=== PATIENT | male | born 1940 | race Caucasian/White ===

== ENCOUNTER 2016-09-30 18:41 | Inpatient (IN) | payer MEDICARE ==
[2016-09-30] MEDS ORDERED: ACETAMINOPHEN TAB 500 MG TAB PO STA (19:06)
[2016-09-30] MEDS ORDERED: ONDANSETRON 4 MG/2 ML VIAL IVP STA (19:08)
[2016-09-30] MEDS: SODIUM CHLORIDE 0.9% 500 ML IV SCH (19:32)
--- NOTE | 2016-09-30 19:34 | ED ---
Weakness HPI - General Chief complaint: Weakness Stated complaint: Sickness Time Seen by Provider: 09/30/16 18:43 Source: patient, family Mode of arrival: EMS Limitations: altered mental status, physical limitation - History of Present Illness Initial comments: This is a 76-year-old male with no past medical history however does not routinely see a physician presents emergency department for generalized fatigue. He states that it started approximately 3 days ago with some nausea and vomiting and some epigastric abdominal discomfort. It is gradually gotten worse to the point where he cannot get up and stand it anymore. He has been having some sweats at home. He denies any chest pain however does state that the abdominal discomfort did radiate up into his chest at times. He admits to little bit of some cough and shortness of breath. No dysuria or hematuria. No abdominal pain currently. No other complaints. - Related Data Home Medications Medication Instructions Recorded Confirmed Aspirin [Adult Low Dose Aspirin EC] 81 mg PO DAILY PRN 09/30/16 09/30/16 Allergies Allergy/AdvReac Type Severity Reaction Status Date / Time No Known Allergies Allergy Verified 09/30/16 20:08 Review of Systems ROS Statement: Those systems with pertinent positive or pertinent negative responses have been documented in the HPI. ROS Other: All systems not noted in ROS Statement are negative. General Exam - General Exam Comments Initial Comments: Constitutional: Awake alert Appears comfortable Head: Normocephalic atraumatic Eyes: no conjunctival injection No scleral icterus EOMI Neck: No JVD Supple Heart: Regular rate rhythm normal S1-S2 no murmurs Lungs: Clear to auscultation bilaterally No wheezing there is some crackling to the right lung base Abdomen: Soft nondistended nontender Extremities: Non edematous DP pulses intact Radial pulses intact Neuro: A&Ox3 No focal neurologic deficits Psych: Appropriate mood and affect Limitations: altered mental status, physical limitation Course Vital Signs 09/30/16 09/30/16 18:56 19:24 Temperature 100.9 F H 99.2 F Pulse Rate 106 H 98 Respiratory 17 18 Rate Blood Pressure 145/68 155/72 O2 Sat by Pulse 93 L 96 Oximetry EKG Findings - EKG Comments: EKG Findings:: EKG showing sinus tachycardia with a rate of 104. No abnormal ST segment changes or T-wave inversions. QTC is 418. Other intervals are normal. No ectopy. Medical Decision Making - Medical Decision Making Is a 76-year-old male presents emergency department for generalized fatigue. He appears to have pneumonia and sepsis. I started him on Rocephin and azithromycin. I'm going to admitted to the hospital. Dr. Leung accepts admission. - Lab Data Result diagrams: 09/30/16 19:34 09/30/16 19:34 Lab Results 09/30/16 09/30/16 09/30/16 Range/Units 19:34 19:34 19:34 WBC 21.4 H (3.8-10.6) k/uL RBC 4.64 (4.30-5.90) m/uL Hgb 14.9 (13.0-17.5) gm/dL Hct 42.1 (39.0-53.0) % MCV 90.7 (80.0-100.0) fL MCH 32.1 (25.0-35.0) pg MCHC 35.4 (31.0-37.0) g/dL RDW 12.7 (11.5-15.5) % Plt Count 173 (150-450) k/uL Neutrophils % 89 % Lymphocytes % 5 % Monocytes % 5 % Eosinophils % 1 % Basophils % 0 % Neutrophils # 19.1 H (1.3-7.7) k/uL Lymphocytes # 1.0 (1.0-4.8) k/uL Monocytes # 1.0 (0-1.0) k/uL Eosinophils # 0.1 (0-0.7) k/uL Basophils # 0.0 (0-0.2) k/uL PT (9.0-12.0) sec INR (<1.1) APTT (22.0-30.0) sec Sodium 131 L (137-145) mmol/L Potassium 3.3 L (3.5-5.1) mmol/L Chloride 98 (98-107) mmol/L Carbon Dioxide 23 (22-30) mmol/L Anion Gap 10 mmol/L BUN 34 H (9-20) mg/dL Creatinine 1.20 (0.66-1.25) mg/dL Est GFR (MDRD) Af Amer >60 (>60 ml/min/1.73 sqM) Est GFR (MDRD) Non-Af 59 (>60 ml/min/1.73 sqM) Glucose 150 H (74-99) mg/dL Plasma Lactic Acid Nestor 1.1 (0.7-2.0) mmol/L Calcium 8.9 (8.4-10.2) mg/dL Total Bilirubin 1.8 H (0.2-1.3) mg/dL AST 32 (17-59) U/L ALT 34 (21-72) U/L Alkaline Phosphatase 75 (38-126) U/L Total Protein 6.2 L (6.3-8.2) g/dL Albumin 3.4 L (3.5-5.0) g/dL 09/30/16 Range/Units 19:34 WBC (3.8-10.6) k/uL RBC (4.30-5.90) m/uL Hgb (13.0-17.5) gm/dL Hct (39.0-53.0) % MCV (80.0-100.0) fL MCH (25.0-35.0) pg MCHC (31.0-37.0) g/dL RDW (11.5-15.5) % Plt Count (150-450) k/uL Neutrophils % % Lymphocytes % % Monocytes % % Eosinophils % % Basophils % % Neutrophils # (1.3-7.7) k/uL Lymphocytes # (1.0-4.8) k/uL Monocytes # (0-1.0) k/uL Eosinophils # (0-0.7) k/uL Basophils # (0-0.2) k/uL PT 11.1 (9.0-12.0) sec INR 1.1 (<1.1) APTT 26.7 (22.0-30.0) sec Sodium (137-145) mmol/L Potassium (3.5-5.1) mmol/L Chloride (98-107) mmol/L Carbon Dioxide (22-30) mmol/L Anion Gap mmol/L BUN (9-20) mg/dL Creatinine (0.66-1.25) mg/dL Est GFR (MDRD) Af Amer (>60 ml/min/1.73 sqM) Est GFR (MDRD) Non-Af (>60 ml/min/1.73 sqM) Glucose (74-99) mg/dL Plasma Lactic Acid Nestor (0.7-2.0) mmol/L Calcium (8.4-10.2) mg/dL Total Bilirubin (0.2-1.3) mg/dL AST (17-59) U/L ALT (21-72) U/L Alkaline Phosphatase (38-126) U/L Total Protein (6.3-8.2) g/dL Albumin (3.5-5.0) g/dL Disposition Clinical Impression: CAP (community acquired pneumonia), Sepsis Disposition: ADMITTED IP TO THIS HOSP Condition: Stable Referrals: None,Stated [Primary Care Provider] - 1-2 days
[2016-09-30] MEDS: SODIUM CHLORIDE 0.9% 1,000 ML IV SCH (19:35)
[2016-09-30 19:48] LABS: Basophils % (A) 0 %; CH 32.2; CHCM 35.7; Eosinophils # (A) 0.1 k/uL (0-0.7); Eosinophils % (A) 1 %; HCT 42.1 % (39.0-53.0); HDW 2.42; HGB 14.9 gm/dL (13.0-17.5); Luc # (Auto) 0.23; Luc % (Auto) 1; Lymphocytes % (A) 5 %; MCH 32.1 pg (25.0-35.0); MCHC 35.4 g/dL (31.0-37.0); MCV 90.7 fL (80.0-100.0); Mean Platelet Volume 7.2; Monocytes % (A) 5 %; Neutrophils # (A) 19.1 k/uL (1.3-7.7); Neutrophils % (A) 89 %; RBC 4.64 m/uL (4.30-5.90); RDW 12.7 % (11.5-15.5); WBC 21.4 k/uL (3.8-10.6); WBC (Perox) 21.61
--- NOTE | 2016-09-30 19:57 | XR ---
EXAMINATION TYPE: XR chest 2V DATE OF EXAM: 09/30/2016 COMPARISON: NONE HISTORY: Weakness TECHNIQUE: Frontal and lateral views of the chest are obtained. FINDINGS: There is no heart failure nor confluent pneumonic infiltrate. Costophrenic angles are bernardino r. There are no hilar masses. Thoracic aorta is atheromatous. There are chest leads. There is mild li near density in the right middle lobe. IMPRESSION: Mild subsegmental atelectasis in the right middle lobe. No heart failure.
[2016-09-30 19:58] LABS: INR 1.1 (<1.1); Partial Thromboplastin Time 26.7 sec (22.0-30.0); Prothrombin Time 11.1 sec (9.0-12.0)
[2016-09-30 20:01] LABS: ALT 34 U/L (21-72); AST 32 U/L (17-59); Alkaline Phosphatase 75 U/L (38-126); Anion Gap 10 mmol/L; Blood Urea Nitrogen 34 mg/dL (9-20); Calcium 8.9 mg/dL (8.4-10.2); Carbon Dioxide 23 mmol/L (22-30); Chloride 98 mmol/L (98-107); Glucose 150 mg/dL (74-99); Non-African American GFR(MDRD) 59 (>60 ml/min/1.73 sqM); Potassium 3.3 mmol/L (3.5-5.1); Sodium 131 mmol/L (137-145); Total Bilirubin 1.8 mg/dL (0.2-1.3); Total Protein 6.2 g/dL (6.3-8.2)
[2016-09-30] MEDS ORDERED: AZITHROMYCIN 500 MG in SODIUM CHLORIDE 0.9% 250 ML IVPB STA (20:04)
[2016-09-30 20:20] LABS: Creatine Kinase 47 U/L (55-170)
[2016-09-30 20:33] LABS: Creatine Kinase MB 0.4 ng/mL (0.0-2.4); Troponin I <0.012 ng/mL (0.000-0.034)
[2016-09-30] MEDS ORDERED: ACETAMINOPHEN TAB 325 MG TAB PO PRN (20:33)
[2016-09-30] MEDS ORDERED: NALOXONE 0.4 MG/ML 1 ML VIAL IV PRN (20:33)
[2016-09-30 22:25] VITALS: BMI 28.5
[2016-09-30] MEDS ORDERED: TEMAZEPAM 15 MG CAP PO PRN (23:09)
[2016-09-30] MEDS ORDERED: ALPRAZolam 0.25 MG TAB PO PRN (23:09)
[2016-10-01 00:20] LABS: ALT 34 U/L (21-72); AST 28 U/L (17-59); Alkaline Phosphatase 58 U/L (38-126); Anion Gap 9 mmol/L; Blood Urea Nitrogen 29 mg/dL (9-20); Calcium 8.1 mg/dL (8.4-10.2); Carbon Dioxide 23 mmol/L (22-30); Chloride 100 mmol/L (98-107); Glucose 125 mg/dL (74-99); Non-African American GFR(MDRD) >60 (>60 ml/min/1.73 sqM); Potassium 3.3 mmol/L (3.5-5.1); Sodium 132 mmol/L (137-145); Total Bilirubin 1.7 mg/dL (0.2-1.3)
[2016-10-01 02:07] LABS: Appearance,Urine Clear (Clear); Bilirubin,Urine Negative (Negative); Glucose,Urine (UA) Negative (Negative); Ketones,Urine Negative (Negative); Leukocyte Esterase,Urine Negative (Negative); Nitrite,Urine Negative (Negative); Protein,Urine Trace (Negative); Specific Gravity,Urine 1.012 (1.001-1.035); UA Billing (MACRO vs. MICRO) CHEM; Urobilinogen,Urine <2.0 mg/dL (<2.0)
[2016-10-01] MEDS: LEVALBUTEROL NEB (CONC) 1.25 MG/0.5 ML AMP INHALATION SCH ×4 (08:22→19:10)
[2016-10-01] MEDS: IPRATROPIUM 0.5 MG/2.5 ML NEBU INHALATION SCH ×4 (08:22→19:09)
[2016-10-01] MEDS: SYMBICORT 160-4.5 MCG INHALER INHALATION SCH ×2 (08:22→19:10)
[2016-10-01 08:54] LABS: Basophils % (A) 0 %; CH 31.7; CHCM 33.6; Eosinophils % (A) 0 %; HCT 43.4 % (39.0-53.0); HDW 2.33; HGB 14.2 gm/dL (13.0-17.5); Luc # (Auto) 0.25; Luc % (Auto) 2; Lymphocytes # (A) 0.5 k/uL (1.0-4.8); Lymphocytes % (A) 3 %; MCHC 32.7 g/dL (31.0-37.0); MCV 94.7 fL (80.0-100.0); Monocytes # (A) 0.8 k/uL (0-1.0); Monocytes % (A) 5 %; Neutrophils # (A) 14.4 k/uL (1.3-7.7); Neutrophils % (A) 90 %; RBC 4.58 m/uL (4.30-5.90); WBC (Perox) 15.66
[2016-10-01] MEDS: PANTOPRAZOLE 40 MG TABLET PO SCH (08:59)
[2016-10-01] MEDS: HEPARIN SODIUM,PORCINE 5,000 UNIT/ML 1 ML VIAL SQ SCH ×2 (09:00→22:14)
[2016-10-01 09:12] LABS: Anion Gap 7 mmol/L; Blood Urea Nitrogen 22 mg/dL (9-20); Calcium 8.2 mg/dL (8.4-10.2); Carbon Dioxide 27 mmol/L (22-30); Chloride 100 mmol/L (98-107); Glucose 133 mg/dL (74-99); Non-African American GFR(MDRD) >60 (>60 ml/min/1.73 sqM); Potassium 3.5 mmol/L (3.5-5.1); Sodium 134 mmol/L (137-145)
--- NOTE | 2016-10-01 09:54 | HP ---
DATE OF ADMISSION: 09/30/2016 CHIEF COMPLAINT: Weakness and cough. HISTORY OF PRESENT ILLNESS: This is a 76-year-old gentleman with a past medical history of arthritis. Otherwise, no other major medical issues, not being followed by any primary physician in the outpatient setting. Apparently was sick Wednesday. The patient initially vomiting and patient also was complaining of weak after that. The patient was having a cough. Patient unable to even walk but the patient refused to come to the Hospital and finally the patient came to the hospital and was noted to have right lower lobe pneumonia. The patient admitted to the hospital for further evaluation and treatment. There is no history of any rigors, no history of headache, loss of consciousness, seizures. The patient has occasional cough on and off with some sputum. PAST MEDICAL HISTORY: History of degenerative joint disease, history of nicotine dependence. Medications are: Prior to admission: Aspirin 81 mg daily p.r.n. ALLERGIES: None. FAMILY HISTORY: History of pneumonia in the family. SOCIAL HISTORY: Previous history of smoking. No history of alcohol. REVIEW OF SYSTEMS: ENT: Diminishing hearing. Diminished vision. CARDIOVASCULAR SYSTEM: No angina or palpitations. RESPIRATORY: As mentioned earlier. GI: No nausea. : No dysuria. Nervous system: No numbness or weakness. ALLERGY/IMMUNOLOGY: No asthma or hayfever. MUSCULOSKELETAL: As mentioned earlier. HEMATOLOGY/ONCOLOGY: No history of anemia. ENDOCRINE: No history of diabetes mellitus or hypothyroidism. CONSTITUTIONAL: As mentioned earlier . DERMATOLOGY: Negative. RHEUMATOLOGY: Negative. PSYCHIATRY: As mentioned earlier. PHYSICAL EXAMINATION: Patient is alert and oriented x3. Pulse is 106, blood pressure 140/60. Respiratory rate 17. Temperature 100.9, pulse ox 93% on room air. HEENT: Conjunctivae normal. Oral mucosa moist. NECK: No jugular venous distention. No carotid bruit. No lymph node enlargement. CARDIOVASCULAR: S1, S2. No S3, no S4. RESPIRATORY: Breath sounds diminished at the bases. Bilateral scattered rhonchi. Expiratory wheezing and crackles heard. ABDOMEN: Soft, nontender. No mass palpable. Legs: No edema. No swelling. CENTRAL NERVOUS SYSTEM: Higher functions as mentioned earlier. Moves all four limbs. No focal deficits. LYMPHATICS: No lymph nodes palpable in the neck, axillae or groin. SKIN: No ulcer, rash or bleeding. LABS: WBC 21.2, hemoglobin 14.9. Sodium 130, potassium 3.3. Glucose 150. Total bilirubin is 1.8. ASSESSMENT: 1. Acute right lower lobe pneumonia, possibly gram-negative with sepsis, present on admission. 2. Chronic obstructive pulmonary disease, acute exacerbation. 3. Increased WBC. 4. Hyponatremia. 5. Hypokalemia. 6. Increased total bilirubin possibly secondary to sepsis. 7. Hypoalbuminemia with mild protein calorie malnutrition. 8. History of nicotine dependence. 9. History of degenerative joint disease. RECOMMENDATIONS AND DISCUSSION: This 76-year-old gentleman who presented with the multiple complex medical issues, we will monitor the patient closely. Continue the current medications. Continue symptomatic treatment. We will initiate broad-spectrum IV antibiotics. Also recommend bronchodilators and cautious IV hydration and consultation with Dr. Bojorquez. Repeat labs. Cultures. Prognosis guarded because of multiple complex medical issues. Further recommendations to follow. Also checked influenza swab also. See orders for further details. I would also recommend the patient follow up with primary physician closely in the outpatient setting. Discussed at length with the patient and at the bedside who understands and agrees. Further recommendations to follow. See orders for details. We will change the antibiotics according to the culture reports.
[2016-10-01] MEDS: SODIUM CHLORIDE 0.9% 1,000 ML IV SCH (10:49)
--- NOTE | 2016-10-01 12:23 | CT ---
"EXAMINATION TYPE: CT brain wo con DATE OF EXAM: 10/01/2016 COMPARISON: NONE HISTORY: Pneumonia, weakness, fever, rule out cerebrovascular accident CT DLP: 1141 mGycm Automated exposure control for dose reduction was used. FINDINGS: There is no acute intracranial hemorrhage, mass effect, or midline shift identified. The right middl e cerebral artery appears dense as compared to the left. There is low attenuation in the vipul on the left. The ventricles and sulci are within normal limits in size. Periventricular white matter shows p atchy low attenuation. Focal encephalomalacia present in the thalamus on the left compatible with lac unar infarct. There is cortical atrophy which is likely age-related. The globes are intact and the vi sualized sinuses are remarkable for inflammatory change in the ethmoid air cells, sphenoid sinus, lef t maxillary sinus. IMPRESSION: Dense middle cerebral artery on the right could be indicative of subacute cerebral vascular accident. There are changes of age-related atrophy and chronic small vessel ischemia. A Red message has been communicated to Elizabeth Leung MD via the [employer] | Critical Result syst em on 10/01/2016 12:20 PM, Message ID [id number]."
[2016-10-01] MEDS: MULTIVITAMINS, THERA 1 EACH TAB PO SCH (12:55)
--- NOTE | 2016-10-01 15:03 | CT ---
EXAMINATION TYPE: CT ChestAbdPelvis wo con DATE OF EXAM: 10/01/2016 COMPARISON: Correlation chest radiograph 09/30/2016 HISTORY: 76-year-old male with pneumonia TECHNIQUE: Contiguous axial scanning of the chest, abdomen, and pelvis without IV contrast. Coronal a nd sagittal reconstructions performed. CT DLP: 1428 mGycm Automated exposure control for dose reduction was used. FINDINGS: CHEST: The heart is normal size with a small anterior pericardial effusion measuring 7 mm thick. Artery vess el calcifications are remarkable for coronary artery disease. Ascending aorta is ectatic at 3.9 cm. Mild atelectatic arch calcifications with conventional arch ves david branching anatomy. No thoracic lymphadenopathy by CT size criteria. Evaluation of the lungs shows scattered areas of atelectasis in the mid and lower lungs. There is uday e volume loss and consolidation in the posterior basilar right lower lobe. No pleural effusion. ABDOMEN: Small hiatal hernia. Noncontrast appearance of the liver, adrenal glands, spleen with tiny anterior splenule, and atrophic pancreas show no gross abnormality. 3 mm nonobstructive right lower pole renal calculus and punctate 2 mm nonobstructive left lower pole renal calculus. The gallbladder is hydropic measuring 5.3 cm wide with moderate surrounding inflammatory fat strandin g extending into the ovi hepatis region. In addition, there is diffuse colonic diverticulosis and adjacent wall thickening of the hepatic flex ure, axial image 77. Strandy edema tracking down the anterior right pararenal fascia. No dilated small bowel or free air. No mesenteric or retroperitoneal lymphadenopathy. Pelvis: Bladder is urine distended. Small amount of free fluid collects in the pelvis. No pelvic lymphadenopa thy. Bones: Degenerative changes at the hips and SI joints and also within the lumbar spine. No osseous radiology documented IMPRESSION: 1. ATELECTASIS AND CONSOLIDATION POSTERIOR RIGHT LUNG BASE. IN THE CORRECT CLINICAL SETTING, A SMALL FOCUS OF PNEUMONIA IS NOT EXCLUDED. 2. FINDINGS CONCERNING FOR ACUTE CHOLECYSTITIS WITH MODERATE SURROUNDING INFLAMMATION. 3. THERE IS WALL THICKENING OF THE ADJACENT HEPATIC FLEXURE OF THE COLON THAT COULD BE REACTIVE TO TH E ADJACENT GALLBLADDER INFLAMMATION. AN ACUTE DIVERTICULITIS HERE WOULD BE THE ALTERNATIVE CONSIDERAT ION. 4. INFLAMMATORY FLUID TRACKING DOWN THE RIGHT SIDE OF THE ABDOMEN AND SMALL AMOUNT OF FREE FLUID TYRA ECTING IN THE PELVIS LIKELY REACTIVE. 5. NONOBSTRUCTIVE NEPHROLITHIASIS AND SMALL HIATAL HERNIA. Findings called to Dr. Leung at 3:00 PM.
--- NOTE | 2016-10-01 15:40 | US ---
EXAMINATION TYPE: US carotid duplex BILAT DATE OF EXAM: 10/01/2016 COMPARISON: NONE CLINICAL HISTORY: cva. weakness in legs EXAM MEASUREMENTS: RIGHT: Peak Systolic Velocity (PSV) cm/sec ----- Right CCA: 131.8 ----- Right ICA: 77.0 ----- Right ECA: 71.2 ICA/CCA ratio: 0.6 RIGHT: End Diastole cm/sec ----- Right CCA: 12.3 ----- Right ICA: 15.1 ----- Right ECA: 8.4 LEFT: Peak Systolic Velocity (PSV) cm/sec ----- Left CCA: 95.2 ----- Left ICA: 91.9 ----- Left ECA: 113.4 ICA/CCA ratio: 1.0 LEFT: End Diastole cm/sec ----- Left CCA: 10.6 ----- Left ICA: 15.1 ----- Left ECA: 9.8 VERTEBRALS (direction of flow): Right Vertebral: Antegrade Left Vertebral: Antegrade Mild heterogeneous plaque bilaterally with soft plaque noted on right dist CCA, no significant stenos is seen IMPRESSION: No hemodynamic significant stenosis of the proximal internal carotid arteries bilaterall y by Doppler criteria, and indirect measurement of carotid stenosis
[2016-10-01 16:32] LABS: Cholesterol 119 mg/dL (<200); HDL Cholesterol 50 mg/dL (40-60); Triglycerides 69 mg/dL (<150)
[2016-10-01] MEDS: PIPERACILLIN-TAZOBACTAM 3.375 GM in DEXTROSE/WATER 1 50ML.BAG IVPB SCH (17:08)
--- NOTE | 2016-10-01 17:33 | P.CNPUL ---
History of Present Illness Consult date: 10/01/16 Reason for consult: pneumonia History of present illness: 76-year-old male patient, not having any regular medical follow-up, comes into the hospital because of increased cough and I was consulted to see this patient for suspected right lung pneumonia. . Approximately 3-4 days ago, the patient also had some increased nausea vomiting and some epigastric abdominal discomfort and it progressively got worse to the point where he was unable to get up and move around. He was having also some increased nausea. The patient also was noted to have some weakness on the right side of the body as he noted that while walking and was moving or swelling more to the right. No slurred speech. No headaches. No falls. He also reported cough which was progressively getting worse along with some sputum production on an on-and-off basis. He had also been complaining of generalized fatigue and weakness. He also had some sweating at home. No documented temperature. No regular speed no chills. He denied having any chest pain. No dysuria frequency or urgency. In the emergency department, the patient was also noted to have some altered and depressed mental status. He was diagnosed having a right lung pneumonia with sepsis. He was started with a combination of Rocephin and Zithromax. The patient was admitted to the hospital. His initial white cell count was 21.4. Rest of the electrolytes showed a mild hypokalemia with a potassium of 3.3 and his kidney function showed a BUN of 34 and creatinine of 1.2. The patient had a CAT scan of the chest abdomen and pelvis that showed atelectasis/ consolidation of the posterior right lung base. The patient also had findings concerning of an acute cholecystitis with moderate amount of inflammation along the gallbladder with some fat stranding. The patient also had thickening of the bowel wall adjacent to the hepatic flexure of the colon that could be potentially reactive or inflammatory. Inflammatory fluid was also found to be taken down the right side of the abdomen and small amount of free fluid collecting in the pelvis was seen. Nonobstructive nephrolithiasis and small hiatal hernia was also present. The patient has diffuse colonic diverticulosis and wall thickening of the hepatic flexure was seen. The CAT scan of the brain also showed a dense middle cerebral artery change on the right that could potentially indicate a subacute CVA and addition to that there are changes of age-related atrophy and chronic small vessel ischemia. The carotid Doppler showed no evidence of any hemodynamically significant stenosis. Review of Systems All systems: negative Constitutional: Denies chills, Denies fever Eyes: denies blurred vision, denies pain Ears, nose, mouth and throat: Denies headache, Denies sore throat Cardiovascular: Denies chest pain, Denies shortness of breath Respiratory: Denies cough Gastrointestinal: Denies abdominal pain, Denies diarrhea, Denies nausea, Denies vomiting Musculoskeletal: Denies myalgias Integumentary: Denies pruritus, Denies rash Neurological: Denies numbness, Denies weakness Psychiatric: Denies anxiety, Denies depression Endocrine: Denies fatigue, Denies weight change Past Medical History Past Medical History: No Reported History History of Any Multi-Drug Resistant Organisms: None Reported Past Anesthesia/Blood Transfusion Reactions: No Reported Reaction Past Psychological History: No Psychological Hx Reported Smoking Status: Former smoker - Past Family History Father Family Medical History: Pneumonia Mother Family Medical History: Unable to Obtain Medications and Allergies Home Medications Medication Instructions Recorded Confirmed Type Aspirin [Adult Low Dose Aspirin EC] 81 mg PO DAILY PRN 09/30/16 09/30/16 History Allergies Allergy/AdvReac Type Severity Reaction Status Date / Time No Known Allergies Allergy Verified 09/30/16 20:08 Physical Exam Vitals: Vital Signs Temp Pulse Pulse Resp BP BP Pulse Ox 10/01/16 12:47 92 10/01/16 12:38 88 10/01/16 09:12 92 10/01/16 08:59 92 10/01/16 07:00 99.8 F H 90 18 145/70 91 L 09/30/16 23:00 97.1 F L 81 16 130/71 95 09/30/16 20:37 98.9 F 91 16 138/63 96 09/30/16 19:24 99.2 F 98 18 155/72 96 09/30/16 18:56 100.9 F H 106 H 17 145/68 93 L Intake and Output 10/01/16 10/01/16 10/01/16 06:59 14:59 22:59 Intake Total 240 Output Total 700 Balance -460 Intake: Oral 240 Output: Urine 700 Other: Voiding Method Urinal Urinal Diaper # Voids 3 Weight 82.5 kg Results - Laboratory Findings CBC and BMP: 10/01/16 08:17 10/01/16 08:17 PT/INR, D-dimer PT 11.1 sec (9.0-12.0) 09/30/16 19:34 INR 1.1 (<1.1) 09/30/16 19:34 Abnormal lab findings: Abnormal Labs 09/30/16 09/30/16 09/30/16 19:34 19:34 19:34 WBC 21.4 H Neutrophils # 19.1 H Lymphocytes # Sodium 131 L Potassium 3.3 L BUN 34 H Glucose 150 H Calcium Total Bilirubin 1.8 H Total Creatine Kinase 47 L Total Protein 6.2 L Albumin 3.4 L Urine Protein 09/30/16 10/01/16 10/01/16 23:45 00:10 08:17 WBC 16.0 H Neutrophils # 14.4 H Lymphocytes # 0.5 L Sodium 132 L Potassium 3.3 L BUN 29 H Glucose 125 H Calcium 8.1 L Total Bilirubin 1.7 H Total Creatine Kinase Total Protein 6.0 L Albumin 3.1 L Urine Protein Trace H 10/01/16 08:17 WBC Neutrophils # Lymphocytes # Sodium 134 L Potassium BUN 22 H Glucose 133 H Calcium 8.2 L Total Bilirubin Total Creatine Kinase Total Protein Albumin Urine Protein - Diagnostic Findings CT scan - chest: image reviewed Assessment and Plan Plan: Assessment 1 right lower lobe atelectasis, less likely pneumonia. The possibility of an aspiration cannot be completely excluded 2 altered mental status with a suspected CVA in evolution. The patient had some altered mentation and weakness in the right-sided the body. CAT scan of the brain however is showing some ischemic changes of the right. We'll need an urology evaluation. We will likely need a follow-up CAT scan of the brain. 3 radiographically cholecystitis, LFTs are normal and clinically there is no significant right upper quadrant pain or tenderness. The LFTs are normal. At this point in time the patient on IV Zosyn and the patient doesn't have any significant pain or right upper quadrant tenderness. White cell count is improving is down to 16. General surgeries on the case. Lactic acid level is not elevated. 4 diffuse diverticulosis 5 nonobstructive nephrolithiasis 6 leukocytosis improving Plan Pulmonary status is stable. Agree on IV Zosyn. Surgical consultation regarding possible cholecystitis. Neurology consultation for altered mentation and stroke in evolution. Contact us back should there be any pulmonary issues on this patient. There is some limited atelectatic changes and infiltration of the right lung base. Rule out aspiration. Rule out atelectasis. Agree on Jonn.
--- NOTE | 2016-10-01 21:25 | PN ---
DATE OF SERVICE: 10/01/2016 This 76-year-old gentleman who was admitted with acute right lower lobe pneumonia, possibly Gram-negative, also had sepsis which was present on admission. The patient also had multiple evaluations, including CT scan of the brain today because of the difficulty in walking. It showed a dense middle cerebral artery on the right side. Otherwise, the patient also had a chest, abdomen and pelvis CT scan which showed evidence of atelectasis, consolidation of the posterior lung base, as well as acute cholecystitis with moderate surrounding inflammation and a thickening of the adjacent hepatic flexure of the colon, also; could be reactive in nature. Inflammation and fluid tracking on the right side of the abdomen was also noted. Antibiotics were changed and Surgery was being consulted, also. Past medical history reviewed. REVIEW OF SYSTEMS: CARDIOVASCULAR SYSTEM: No angina, palpitations. RESPIRATORY SYSTEM: As mentioned earlier. GI: As mentioned earlier. : As mentioned earlier. NERVOUS SYSTEM: No numbness or weakness. Current medications are reviewed and include: 1. Tylenol 650 q.6 p.r.n. 2. [place] 5 mg q.6. 3. Xanax. 4. Zithromax 500 mg daily. 5. Symbicort. 6. Atrovent. 7. Xopenex. 8. Multivitamin. 9. Narcan. 10. Protonix. 11. Zosyn IV. PHYSICAL EXAMINATION: Patient is alert and oriented x3. Pulse is 92, blood pressure 140/70, respiration 18, temperature 99.8, pulse ox 91% on room air. HEENT: Conjunctivae normal. Oral mucosa moist. NECK: No jugular venous distention. No carotid bruit. No lymph node enlargement. CARDIOVASCULAR SYSTEM: S1, S2 muffled. No S3. No S4. RESPIRATORY SYSTEM: Breath sounds diminished at the bases. A few scattered rhonchi and crackles. ABDOMEN: Soft. Minimal discomfort . No guarding. No rigidity. No mass palpable. LEGS: No edema. No swelling. NERVOUS SYSTEM: Higher functions as mentioned earlier. Moves all 4 limbs. No focal motor or sensory deficit. LYMPHATICS: No lymph node palpable in neck, axillae or groin. SKIN: No ulcer, rash, bleeding. LABS: WBC 16. Sodium 134. Potassium 3.5. Other labs are noted. Influenza is negative. ASSESSMENT: 1. Acute right lower lobe pneumonia, possibly Gram-negative sepsis, present on admission. 2. Possible acute cholecystitis with adjacent colitis and inflammatory reaction, present on admission. 3. Chronic obstructive pulmonary disease, acute exacerbation. 4. Rule out acute stroke with a dense middle cerebral artery. 5. Increased white count. 6. Hyponatremia. 7. Hypokalemia. 8. Increased total bilirubin, possibly secondary to sepsis. 9. Hypoalbuminemia with mild to moderate protein-calorie malnutrition. 10. History of nicotine dependence. 11. History of degenerative joint disease. 12. FULL CODE. RECOMMENDATIONS AND DISCUSSION: In this 76-year-old gentleman who presented with multiple complex medical issues, we will monitor the patient closely, continue the current medication, continue with symptomatic treatment. Otherwise, will add Zosyn to the current regimen. Surgical evaluation. Possible surgery. The prognosis is extremely guarded because of multiple complex medical issues, as mentioned earlier. Will get a neurology consultation as well. Dr. Bojorquez has been consulted. Prognosis guarded, which I discussed with the family at length, who understands and agrees. Further recommendations to follow. MTDD
[2016-10-01] MEDS: AZITHROMYCIN 500 MG in SODIUM CHLORIDE 0.9% 250 ML IVPB SCH (22:13)
[2016-10-02] MEDS: PIPERACILLIN-TAZOBACTAM 3.375 GM in DEXTROSE/WATER 1 50ML.BAG IVPB SCH ×3 (00:14→17:02)
[2016-10-02] MEDS ORDERED: IPRATROPIUM-ALBUTEROL 3 ML NEB INHALATION PRN (03:42)
[2016-10-02] MEDS: HEPARIN SODIUM,PORCINE 5,000 UNIT/ML 1 ML VIAL SQ SCH ×2 (07:49→20:47)
[2016-10-02] MEDS: PANTOPRAZOLE 40 MG TABLET PO SCH (07:49)
[2016-10-02 08:14] LABS: Basophils % (A) 0 %; CH 31.4; CHCM 33.3; Eosinophils # (A) 0.1 k/uL (0-0.7); Eosinophils % (A) 1 %; HCT 38.6 % (39.0-53.0); HDW 2.42; HGB 12.5 gm/dL (13.0-17.5); Luc # (Auto) 0.26; Luc % (Auto) 2; Lymphocytes # (A) 0.6 k/uL (1.0-4.8); Lymphocytes % (A) 4 %; MCH 30.8 pg (25.0-35.0); MCHC 32.5 g/dL (31.0-37.0); MCV 94.6 fL (80.0-100.0); Mean Platelet Volume 7.1; Monocytes % (A) 7 %; Neutrophils % (A) 86 %; RBC 4.08 m/uL (4.30-5.90)
[2016-10-02 08:26] LABS: Anion Gap 9 mmol/L; Blood Urea Nitrogen 18 mg/dL (9-20); Calcium 8.3 mg/dL (8.4-10.2); Carbon Dioxide 27 mmol/L (22-30); Chloride 103 mmol/L (98-107); Glucose 143 mg/dL (74-99); Non-African American GFR(MDRD) >60 (>60 ml/min/1.73 sqM); Potassium 3.5 mmol/L (3.5-5.1); Sodium 139 mmol/L (137-145)
--- NOTE | 2016-10-02 08:33 | CT ---
EXAMINATION TYPE: CT brain wo con DATE OF EXAM: 10/02/2016 HISTORY: Abn CT CT DLP: 981.7 mGycm. Automated Exposure Control for Dose Reduction was Utilized. TECHNIQUE: CT scan of the head is performed without contrast. COMPARISON: CT brain October 01, 2016 FINDINGS: There is no acute intracranial hemorrhage or midline shift identified. There is diffuse v entricular and sulcal prominence consistent with diffuse age-related cerebral atrophy. There is nons pecific low-attenuation in the periventricular and deep white matter consistent redemonstrated. For r eference posterior right frontal area on axial image 35 is stable. Slight hyperdense appearance to ri ght MCA artery is less prominent on current study suspected artifactual as there is no suggestion of progression of large right-sided infarct. There is old lacunar infarct left anterolateral thalamus ne ar axial image 26 redemonstrated. The globes are intact bilaterally. There is increasing opacificat ion anterior ethmoid sinuses. There is persistent slightly more prominent patchy opacity in the left maxillary sinus. IMPRESSION: No acute intracranial hemorrhage or midline shift. There is mild diffuse age-related ce rebral atrophy and mild to moderate nonspecific white matter changes most likely on basis of chronic small vessel ischemic change noted. Areas of acute infarct would be difficult to exclude. No signifi cant change noted. 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 Worsening left-lucía ed acute paranasal sinus disease is present.
[2016-10-02] MEDS: SYMBICORT 160-4.5 MCG INHALER INHALATION SCH ×2 (09:04→20:09)
[2016-10-02] MEDS: LEVALBUTEROL NEB (CONC) 1.25 MG/0.5 ML AMP INHALATION SCH ×4 (09:05→20:09)
[2016-10-02] MEDS: IPRATROPIUM 0.5 MG/2.5 ML NEBU INHALATION SCH ×4 (09:05→20:09)
--- NOTE | 2016-10-02 09:43 | ECHOF ---
Referral Reason:cva MEASUREMENTS -------- HEIGHT: 170.2 cm WEIGHT: 82.1 kg BP: 145/70 RVIDd: 3.6 cm (< 3.3) IVSd: 1.2 cm (0.6 - 1.1) LVIDd: 4.3 cm (3.9 - 5.3) LVPWd: 1.1 cm (0.6 - 1.1) IVSs: 1.6 cm LVIDs: 3.0 cm LVPWs: 2.0 cm LA Diam: 3.5 cm (2.7 - 3.8) LAESV Index (A-L): 20.34 ml/m Ao Diam: 3.6 cm (2.0 - 3.7) AV Cusp: 2.6 cm (1.5 - 2.6) MV EXCURSION: 20.651 mm (> 18.000) MV EF SLOPE: 56 mm/s (70 - 150) EPSS: 1.2 cm MV E Isaias: 0.78 m/s MV DecT: 213 ms MV A Isaias: 0.96 m/s MV E/A Ratio: 0.81 RAP: 5.00 mmHg RVSP: 33.67 mmHg FINDINGS -------- Sinus rhythm. This was a technically adequate study. The left ventricular size is normal. There is borderline concentric left ventricular hypertrophy. Overall left ventricular systolic function is normal with, an EF between 60 - 65 %. The right ventricle is mildly enlarged. Normal LA size by volume 22+/-6 ml/m2. The right atrium is normal in size. There is mild aortic valve sclerosis. Mild mitral annular calcification present. There is trace mitral regurgitation. Mild tricuspid regurgitation present. Right ventricular systolic pressure is normal at < 35 mmHg. Trace/mild (physiologic) pulmonic regurgitation. The aortic root size is normal. Normal inferior vena cava with normal inspiratory collapse consistent with estimated right atrial pressure of 5 mmHg. The pericardium is normal. CONCLUSIONS -------- 1. Sinus rhythm. 2. Mild mitral annular calcification present. 3. There is trace mitral regurgitation. 4. Mild tricuspid regurgitation present. 5. Right ventricular systolic pressure is normal at < 35 mmHg. 6. Trace/mild (physiologic) pulmonic regurgitation. 7. The aortic root size is normal. 8. Normal inferior vena cava with normal inspiratory collapse consistent with estimated right atrial pressure of 5 mmHg. 9. The pericardium is normal. 10. This was a technically adequate study. 11. The left ventricular size is normal. 12. There is borderline concentric left ventricular hypertrophy. 13. Overall left ventricular systolic function is normal with, an EF between 60 - 65 %. 14. The right ventricle is mildly enlarged. 15. Normal LA size by volume 22+/-6 ml/m2. 16. The right atrium is normal in size. 17. There is mild aortic valve sclerosis. [employer] PROFESSOR: Veronica Way RDCS
--- NOTE | 2016-10-02 10:38 | CONS ---
DATE OF CONSULTATION: 10/01/2016 CHIEF COMPLAINT: Altered mental status. HISTORY OF PRESENT ILLNESS: Mr. Gutierrez is a pleasant 76-year-old male who is being evaluated by the Neurology Service per the request of Dr. Leung for altered mental status and generalized weakness. The patient's symptoms first started late Wednesday night into Wednesday when he started having significant nausea and vomiting. The following day, he was feeling pretty weak and noticed that he had reduced energy. On Wednesday, he was so weak that he was unable to get out of bed. His also noticed some confusion. The patient denies any lateralizing numbness or weakness. He was brought into [facility] emergency room for further work-up and management. The patient was found to have a pneumonia and evidence of cholecystitis on his work-up. Dr. Segovia has been consulted and he is likely to undergo a cholecystectomy tomorrow morning. A CT scan of the brain was done, which showed no acute abnormalities. There was evidence of a dense right MCA sign but the patient is not having any lateralizing weakness. There was generalized atrophy and small vessel ischemic changes. The patient has been started on IV antibiotics. A carotid Doppler was done, which showed no hemodynamically significant stenosis. His CBC shows leukocytosis at 21.4 and was otherwise normal. His comprehensive metabolic profile showed hyponatremia at 131, hypokalemia at 3.3, and elevated BUN at 34. His urinalysis was normal. At the time of my evaluation, the patient is lying in his bed and appears to be in no acute distress. His is at bedside. Although, the patient has significant improvements in his strength, he is still not back to his baseline. PAST MEDICAL HISTORY: Degenerative joint disease. SOCIAL HISTORY: The patient no history of any alcohol or drug use. He is a former smoker. FAMILY HISTORY: Noncontributory. HOME MEDICATIONS: Aspirin 81 mg daily. ALLERGIES: No known drug allergies. REVIEW OF SYSTEMS: CONSTITUTIONAL: Positive for fatigue. EYES: Negative. ENT: Negative. CARDIOVASCULAR: Negative. RESPIRATORY: Positive for occasional shortness of breath. NEUROLOGICAL: As mentioned above. GASTROINTESTINAL: As mentioned above. GENITOURINARY: Negative. PSYCHIATRIC: Negative. MUSCULOSKELETAL: Positive for occasional joint pain. DERMATOLOGICAL: Negative. ENDOCRINE: Negative. PHYSICAL EXAM: Vital signs show a temperature of 99.8, pulse was 92, respirations 18, blood pressure 145/70. GENERAL APPEARANCE: The patient is a well-developed, elderly male who appears to be in no acute distress. HEENT: Normocephalic, atraumatic, no facial asymmetry is seen. Neck is supple with no masses felt. CARDIOVASCULAR: Regular rate and rhythm. ABDOMEN: Nontender, nondistended. EXTREMITIES: Showed no edema or clubbing. NEUROLOGICAL EXAM: The patient is awake and oriented x3. Strength is 5-5 in all 4 extremities. No pronator drift is seen. No facial asymmetry is noticed on cranial nerve testing. Sensory exam was normal to light touch in all 4 extremities. IMPRESSION: 1. Altered mental status, improved. 2. Acute multifactorial encephalopathy. 3. Abnormal CT scan of the brain. 4. Pneumonia. 5. Cholecystitis. 6. Leukocytosis. 7. Electrolyte imbalance. RECOMMENDATION: The patient's neurological examination shows no evidence of any lateralizing symptoms. There is no evidence of any ischemic stroke with his presenting symptoms. Also, his history is presenting with a slowly progressive weakness over the past few days, which started out with significant nausea and vomiting. Although his CT scan of the brain was interpreted as showing a dense right MCA site, I doubt any ischemic etiology. I will repeat a CT scan of the brain. Depending on the findings of the CT scan, further recommendations will be made. If his CT scan shows no acute ischemia, he will be cleared to proceed with surgery as he will need a cholecystectomy. Dr. Segovia has been consulted. I will order a fasting lipid panel, EEG and serum homocysteine level. Continue antibiotic therapy. I will continue to follow with you. Further recommendations to follow. Thank you for allowing me to participate in the care of your patient. If you have any questions, please feel free to contact me.
[2016-10-02] MEDS: MULTIVITAMINS, THERA 1 EACH TAB PO SCH (12:20)
[2016-10-02] MEDS: SODIUM CHLORIDE 0.9% 1,000 ML IV SCH (12:20)
[2016-10-02 12:23] LABS: ALT 55 U/L (21-72); AST 68 U/L (17-59); Alkaline Phosphatase 99 U/L (38-126); Amylase 39 U/L (30-110); Total Bilirubin 1.6 mg/dL (0.2-1.3); Total Protein 5.5 g/dL (6.3-8.2)
[2016-10-02] MEDS ORDERED: IV FLUID CONTINUATION 1,000 ML IV ONE (12:31)
--- NOTE | 2016-10-02 13:14 | P.PN ---
Subjective 76-year-old male patient, not having any regular medical follow-up, comes into the hospital because of increased cough and I was consulted to see this patient for suspected right lung pneumonia. . Approximately 3-4 days ago, the patient also had some increased nausea vomiting and some epigastric abdominal discomfort and it progressively got worse to the point where he was unable to get up and move around. He was having also some increased nausea. The patient also was noted to have some weakness on the right side of the body as he noted that while walking and was moving or swelling more to the right. No slurred speech. No headaches. No falls. He also reported cough which was progressively getting worse along with some sputum production on an on-and-off basis. He had also been complaining of generalized fatigue and weakness. He also had some sweating at home. No documented temperature. No regular speed no chills. He denied having any chest pain. No dysuria frequency or urgency. In the emergency department, the patient was also noted to have some altered and depressed mental status. He was diagnosed having a right lung pneumonia with sepsis. He was started with a combination of Rocephin and Zithromax. The patient was admitted to the hospital. His initial white cell count was 21.4. Rest of the electrolytes showed a mild hypokalemia with a potassium of 3.3 and his kidney function showed a BUN of 34 and creatinine of 1.2. The patient had a CAT scan of the chest abdomen and pelvis that showed atelectasis/ consolidation of the posterior right lung base. The patient also had findings concerning of an acute cholecystitis with moderate amount of inflammation along the gallbladder with some fat stranding. The patient also had thickening of the bowel wall adjacent to the hepatic flexure of the colon that could be potentially reactive or inflammatory. Inflammatory fluid was also found to be taken down the right side of the abdomen and small amount of free fluid collecting in the pelvis was seen. Nonobstructive nephrolithiasis and small hiatal hernia was also present. The patient has diffuse colonic diverticulosis and wall thickening of the hepatic flexure was seen. The CAT scan of the brain also showed a dense middle cerebral artery change on the right that could potentially indicate a subacute CVA and addition to that there are changes of age-related atrophy and chronic small vessel ischemia. The carotid Doppler showed no evidence of any hemodynamically significant stenosis. The patient was seen again today in follow-up on the regular medical floor 10/02. He is more awake and alert today as compared to yesterday. A follow-up computed tomography scan of the brain continued to show no acute intracranial process. There was some noted left paranasal sinus congestion. He has no pulmonary complaints. No shortness of breath, cough or congestion. No fever. No night sweats. The plan is for cholecystectomy with Dr. Segovia today. Objective - Vital Signs Vital signs: Vital Signs Temp 99.9 F H 10/02/16 12:34 Pulse 88 10/02/16 12:34 Resp 16 10/02/16 12:34 BP 145/83 10/02/16 12:34 Pulse Ox 98 10/02/16 12:34 Intake & Output 10/01/16 10/02/16 10/02/16 18:59 06:59 18:59 Intake Total 1025 Output Total 700 Balance 325 Intake: Intake, IV Titration 625 Amount Azithromycin 500 mg In 125 Sodium Chloride 0.9% 250 ml @ 125 mls/hr IVPB Q24H MARYJO Rx#:[id number] Sodium Chloride 0.9% 1, 500 000 ml @ 50 mls/hr IV . Q20H MARYJO Rx#:[id number] Oral 400 Output: Urine 700 Other: Voiding Method Toilet Toilet Toilet # Voids 3 2 1 - Exam GENERAL EXAM: Alert, comfortable in no apparent distress. HEAD: Normocephalic. EYES: Normal reaction of pupils, equal size. NOSE: Clear with pink turbinates. THROAT: No erythema or exudates. NECK: No masses, no JVD. CHEST: No chest wall deformity. LUNGS: Equal air entry with her cousin the left lung base. CVS: S1 and S2 normal with no audible murmurs, regular rhythm. ABDOMEN: No hepatosplenomegaly, normal bowel sounds, no significant guarding or rigidity. SPINE: No scoliosis or deformity SKIN: No rashes CENTRAL NERVOUS SYSTEM: No focal deficits, tone is normal in all 4 extremities. Extremities: There is no significant peripheral edema. No clubbing, no cyanosis. Peripheral pulses are intact. - Labs CBC & Chem 7: 10/02/16 07:35 10/02/16 07:35 Labs: Abnormal Lab Results - Last 24 Hours (Table) 06/09/17 06/09/17 Range/Units 07:35 07:35 WBC 14.0 H (3.8-10.6) k/uL RBC 4.08 L (4.30-5.90) m/uL Hgb 12.5 L (13.0-17.5) gm/dL Hct 38.6 L (39.0-53.0) % Neutrophils # 12.0 H (1.3-7.7) k/uL Lymphocytes # 0.6 L (1.0-4.8) k/uL Glucose 143 H (74-99) mg/dL Calcium 8.3 L (8.4-10.2) mg/dL Total Bilirubin 1.6 H (0.2-1.3) mg/dL AST 68 H (17-59) U/L Total Protein 5.5 L (6.3-8.2) g/dL Albumin 2.8 L (3.5-5.0) g/dL Microbiology - Last 24 Hours (Table) 10/01/16 00:10 Urine Culture - Final Urine,Voided 09/30/16 19:34 Blood Culture - Preliminary Blood No Growth after 24 hours Assessment and Plan Plan: Assessment 1 right lower lobe atelectasis, less likely pneumonia. The possibility of an aspiration cannot be completely excluded 2 altered mental status with a suspected CVA in evolution. The patient had some altered mentation and weakness in the right-sided the body. CAT scan of the brain however is showing some ischemic changes of the right. We'll need an urology evaluation. A follow-up computed tomography scan of the brain did not reveal any acute intracranial abnormalities. 3 radiographically cholecystitis, LFTs are normal and clinically there is no significant right upper quadrant pain or tenderness. The LFTs are normal. At this point in time the patient on IV Zosyn and the patient doesn't have any significant pain or right upper quadrant tenderness. White cell count is improving is down to 16. The plan is for cholecystectomy today. 4 diffuse diverticulosis 5 nonobstructive nephrolithiasis 6 leukocytosis improving Plan The patient was seen and evaluated by Dr. Bojorquez. He is stable from the pulmonary standpoint. The plan is for laparoscopic cholecystectomy today. We' ll continue with his current medications. We'll continue to follow.
--- NOTE | 2016-10-02 14:17 | P.GSCN ---
History of Present Illness Consult date: 10/02/16 Reason for Consult: Acute cholecystitis History of present illness: Patient hospitalized 2 days ago with progressive weakness, lethargy, epigastric pain, and some shortness of breath. The family also noticed that he was having some balance issues. His white blood cell count was elevated on admission. He was high as 21 today 14. He has had a fever as high as 100.9. A CAT scan of the abdomen and pelvis was performed which revealed findings consistent with acute cholecystitis. A distended gallbladder with a thickened wall and pericholecystic edema was noted. The patient has had some upper abdominal pain. He is unable to localize more to the right or to the left. He has also had nausea and vomiting while at home and the patient describes increased belching and bloating. Bilirubin only slightly elevated. Review of Systems The patient denies any acute changes in his vision or hearing, no dysphagia or odynophagia, no chest pain, no dysuria or hematuria, no headache, no runny nose , no rectal bleeding or melena, no unexplained weight loss Past Medical History Past Medical History: No Reported History History of Any Multi-Drug Resistant Organisms: None Reported Past Anesthesia/Blood Transfusion Reactions: No Reported Reaction Past Psychological History: No Psychological Hx Reported Smoking Status: Former smoker - Past Family History Father Family Medical History: Pneumonia Mother Family Medical History: Unable to Obtain Medications and Allergies Home Medications Medication Instructions Recorded Confirmed Type Aspirin [Adult Low Dose Aspirin EC] 81 mg PO DAILY PRN 09/30/16 09/30/16 History Allergies Allergy/AdvReac Type Severity Reaction Status Date / Time No Known Allergies Allergy Verified 09/30/16 20:08 Surgical - Exam Vital Signs Temp Pulse Resp BP Pulse Ox 100.9 F H 106 H 17 145/68 93 L 09/30/16 18:56 09/30/16 18:56 09/30/16 18:56 09/30/16 18:56 09/30/16 18:56 Physical exam: General: Well-developed, well-nourished HEENT: Normocephalic, sclerae nonicteric Abdomen: mild tenderness upper midabdomen extended slightly to the right, no palpable mass, slightly distended Extremities: No edema Neuro: Alert and oriented Results - Labs 10/02/16 07:35 10/02/16 07:35 Abnormal Lab Results - Last 24 Hours (Table) 10/02/16 10/02/16 Range/Units 07:35 07:35 WBC 14.0 H (3.8-10.6) k/uL RBC 4.08 L (4.30-5.90) m/uL Hgb 12.5 L (13.0-17.5) gm/dL Hct 38.6 L (39.0-53.0) % Neutrophils # 12.0 H (1.3-7.7) k/uL Lymphocytes # 0.6 L (1.0-4.8) k/uL Glucose 143 H (74-99) mg/dL Calcium 8.3 L (8.4-10.2) mg/dL Total Bilirubin 1.6 H (0.2-1.3) mg/dL AST 68 H (17-59) U/L Total Protein 5.5 L (6.3-8.2) g/dL Albumin 2.8 L (3.5-5.0) g/dL Microbiology - Last 24 Hours (Table) 10/01/16 00:10 Urine Culture - Final Urine,Voided 09/30/16 19:34 Blood Culture - Preliminary Blood No Growth after 24 hours Diabetes panel 10/01/16 10/02/16 Range/Units 08:17 07:35 Sodium 139 (137-145) mmol/L Potassium 3.5 (3.5-5.1) mmol/L Chloride 103 (98-107) mmol/L Carbon Dioxide 27 (22-30) mmol/L BUN 18 (9-20) mg/dL Creatinine 0.98 (0.66-1.25) mg/dL Glucose 143 H (74-99) mg/dL Calcium 8.3 L (8.4-10.2) mg/dL AST 68 H (17-59) U/L ALT 55 (21-72) U/L Alkaline Phosphatase 99 (38-126) U/L Total Protein 5.5 L (6.3-8.2) g/dL Albumin 2.8 L (3.5-5.0) g/dL Triglycerides 69 (<150) mg/dL HDL Cholesterol 50 (40-60) mg/dL Calcium panel 10/02/16 Range/Units 07:35 Calcium 8.3 L (8.4-10.2) mg/dL Albumin 2.8 L (3.5-5.0) g/dL Pituitary panel 10/02/16 Range/Units 07:35 Sodium 139 (137-145) mmol/L Potassium 3.5 (3.5-5.1) mmol/L Chloride 103 (98-107) mmol/L Carbon Dioxide 27 (22-30) mmol/L BUN 18 (9-20) mg/dL Creatinine 0.98 (0.66-1.25) mg/dL Glucose 143 H (74-99) mg/dL Calcium 8.3 L (8.4-10.2) mg/dL Adrenal panel 10/02/16 Range/Units 07:35 Sodium 139 (137-145) mmol/L Potassium 3.5 (3.5-5.1) mmol/L Chloride 103 (98-107) mmol/L Carbon Dioxide 27 (22-30) mmol/L BUN 18 (9-20) mg/dL Creatinine 0.98 (0.66-1.25) mg/dL Glucose 143 H (74-99) mg/dL Calcium 8.3 L (8.4-10.2) mg/dL Total Bilirubin 1.6 H (0.2-1.3) mg/dL AST 68 H (17-59) U/L ALT 55 (21-72) U/L Alkaline Phosphatase 99 (38-126) U/L Total Protein 5.5 L (6.3-8.2) g/dL Albumin 2.8 L (3.5-5.0) g/dL Assessment and Plan (1) Acute cholecystitis Narrative/Plan: Will proceed with laparoscopic cholecystectomy at this time. Risks of bleeding , infection, biloma formation, retained CBD Stone, conversion to an open procedure, bile duct injury, postoperative diarrhea, and anesthesia-related, locations were discussed with the patient and family. They understand and wish to proceed. Status: Acute
[2016-10-02] MEDS ORDERED: fentaNYL (PF) 50 MCG/ML 2 ML AMP ONE (14:21)
[2016-10-02] MEDS ORDERED: NEOSTIGMINE 1 MG/ML 10 ML VIAL ONE (14:21)
[2016-10-02] MEDS ORDERED: ROCURONIUM BROMIDE 10 MG/ML 10 ML VIAL IV ONE (14:21)
[2016-10-02] MEDS ORDERED: LIDOCAINE 1% INJ 10MG/ML (20 ML MDV) ONE (14:21)
[2016-10-02] MEDS ORDERED: PROPOFOL 10 MG/ML 20 ML VIAL IV ONE (14:21)
[2016-10-02] MEDS ORDERED: SUCCINYLCHOLINE CHLORIDE 100 MG/5 ML SYR IV ONE (14:21)
[2016-10-02] MEDS ORDERED: GLYCOPYRROLATE 0.2 MG/ML 2 ML VIAL ONE (14:21)
[2016-10-02] MEDS ORDERED: BUPIVACAIN-EPI 0.25%-1:200,000 30 ML VIAL SQ ONE ×2 (14:29→14:41)
[2016-10-02] MEDS ORDERED: LACTATED RINGERS 1,000 ML IV ONE (15:21)
--- NOTE | 2016-10-02 15:50 | P.OP ---
Date of Procedure: 10/02/16 Preoperative Diagnosis: Postoperative Diagnosis: Procedure(s) Performed: PREOPERATIVE DIAGNOSIS: acute cholecystitis POSTOPERATIVE DIAGNOSIS: acute gangrenous cholecystitis PROCEDURE: Laparoscopic cholecystectomy SURGEON: Luca EBL: Minimal see anesthesia record ANESTHESIA: Gen. COMPLICATIONS: None OPERATIVE PROCEDURE: The patient was brought and placed on the operating room table in the supine position. The patient was placed under general anesthesia at that time. The abdomen was prepped and draped in the usual sterile fashion. A small vertical infraumbilical incision was made. The fascia was grasped with the Christian forceps. The fascia was retracted anteriorly. The Veress needle was advanced into the peritoneal cavity. The saline drop test was normal. Insufflation took place up to 15 mmHg. A 5 mm optical trocar was advanced and the peritoneal cavity. 2 additional 5 mm trochars were placed in the right upper quadrant under direct visualization. A 12 mm trocar was advanced into the epigastric incision site. the gallbladder was quite distended erythematous with a few small foci of gangrenous changes involving the fundus. The gallbladder was retracted superiorly and laterally. The peritoneum overlying the infundibulum was bluntly dissected. there were gangrenous changes involving most of the layers of the wall of the gallbladder at the infundibulum. I was able to visualize the cystic duct which also had gangrenous changes. The cystic duct was divided after a 2-0 Ethibond stitch was used to ligate the duct and a 12 mm clip both on the patient's side. The adjacent cystic artery was identified after blunt dissection as well. The gallbladder was removed I merely from the liver bed oozing blunt dissection. The entire posterior wall of the gallbladder was necrotic. We did not enter the gallbladder lumen. Bleeding was controlled with spot cautery. The gallbladder was removed using an Endo Catch bag. I placed a drain in the gallbladder fossa and this was brought out through the most lateral 5 mm trocar site and sutured to the skin using a 2-0 silk stitch. The gallbladder fossa was irrigated with saline. There was no evidence of any bleeding or biliary drainage seen. The trochars were then removed. The fascia at the 12 millimeter site was closed using a frunning 0 Vicryl stitch. The skin at all 3 sites was closed using a 4-0 Monocryl stitch. At the end of this procedure the sponge and needle counts were correct. DISPOSITION: Stable to the recovery room Implants: Indications for Procedure: Operative Findings: Description of Procedure:
[2016-10-02] MEDS: HYDROcodone/APAP 5-325MG 1 EACH TAB PO PRN ×2 (17:02→22:19)
--- NOTE | 2016-10-02 20:35 | PN ---
DATE OF SERVICE: 10/02/2016 This 76-year-old gentleman who was admitted with right lower lobe pneumonia also had features of acute cholecystitis, adjacent colitis, inflammatory reaction also. The patient is suspected to have an old stroke as well. There are no features of acute stroke. Dr. Segovia is planning surgery at this time. Dr. Segovia performed laparoscopic cholecystectomy for acute gangrenous cholecystitis. Past medical history reviewed. REVIEW OF SYSTEMS: CARDIOVASCULAR SYSTEM: No angina, palpitations. RESPIRATORY SYSTEM: As mentioned earlier. GI: As mentioned earlier. : No dysuria, retention. NERVOUS SYSTEM: No numbness or weakness. Current medications are reviewed and include: 1. Tylenol 650 q.6 p.r.n. 2. [place] 5 mg q.6 p.r.n. 3. DuoNeb q.i.d. and p.r.n. 4. Xanax 0.25 t.i.d. 5. Zithromax 500 mg IV daily. 6. Heparin 5000 units subcutaneously daily. 7. Atrovent 0.5 q.i.d. 8. Xopenex 1.25 q.i.d. 9. Multivitamin 1 p.o. daily. 10. Narcan 0.2 q.2 p.r.n. 11. Protonix 40 mg daily. 12. Zosyn 3.375 IV q.8. 13. Restoril 15 mg at bedtime p.r.n. PHYSICAL EXAMINATION: Patient is alert and oriented x3. Pulse is 88, blood pressure 171/77, respiration 18, temperature 99.9, pulse ox 94% on 6 L. HEENT: Conjunctivae normal. Oral mucosa moist. NECK: No jugular venous distention. No carotid bruit. No lymph node enlargement. CARDIOVASCULAR SYSTEM: S1, S2 muffled. RESPIRATORY SYSTEM: Breath sounds diminished at the bases. Bilateral scattered rhonchi and crackles. ABDOMEN: Soft. Mild diffuse discomfort. LEGS: No edema. No swelling. NERVOUS SYSTEM: No focal deficit. LABS: WBC 14, hemoglobin 12.5. Other labs are noted. ASSESSMENT: 1. Acute right lower lobe pneumonia, possibly Gram-negative with sepsis, present on admission. 2. Acute gangrenous cholecystitis with adjacent colitis and inflammatory reaction, present on admission, status post laparoscopic cholecystectomy. 3. Chronic obstructive pulmonary disease, acute exacerbation. 4. 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 5. Increased white count. 6. Hyponatremia. 7. Hypokalemia. 8. Increased total bilirubin, possibly secondary to sepsis. 9. Hypoalbuminemia with mild to moderate protein-calorie malnutrition. 10. History of nicotine dependence. 11. History of degenerative joint disease. 12. FULL CODE. RECOMMENDATIONS AND DISCUSSION: In this 76-year-old gentleman who presented with multiple complex medical issues, we will monitor the patient closely, continue the current medication, continue with symptomatic treatment. Closely follow with Dr. Segovia. Continue the antibiotics and incentive spirometry. Continue with bronchodilators. Acute stroke is unlikely, even though the patient has multiple complex medical issues. Further recommendations to follow. See orders for further details.
[2016-10-02] MEDS: AZITHROMYCIN 500 MG in SODIUM CHLORIDE 0.9% 250 ML IVPB SCH (22:10)
[2016-10-03] MEDS: PIPERACILLIN-TAZOBACTAM 3.375 GM in DEXTROSE/WATER 1 50ML.BAG IVPB SCH ×4 (00:07→23:29)
[2016-10-03] MEDS: IPRATROPIUM 0.5 MG/2.5 ML NEBU INHALATION SCH ×4 (06:55→19:04)
[2016-10-03] MEDS: SYMBICORT 160-4.5 MCG INHALER INHALATION SCH ×2 (06:55→19:04)
[2016-10-03] MEDS: LEVALBUTEROL NEB (CONC) 1.25 MG/0.5 ML AMP INHALATION SCH ×4 (06:55→19:03)
[2016-10-03 07:27] LABS: Basophils % (A) 0 %; CH 31.3; CHCM 32.9; Eosinophils # (A) 0.3 k/uL (0-0.7); Eosinophils % (A) 3 %; HCT 38.5 % (39.0-53.0); HDW 2.45; HGB 12.5 gm/dL (13.0-17.5); Luc # (Auto) 0.15; Luc % (Auto) 2; Lymphocytes # (A) 0.8 k/uL (1.0-4.8); Lymphocytes % (A) 8 %; MCHC 32.5 g/dL (31.0-37.0); MCV 95.5 fL (80.0-100.0); Mean Platelet Volume 6.9; Monocytes # (A) 0.8 k/uL (0-1.0); Monocytes % (A) 8 %; Neutrophils # (A) 7.7 k/uL (1.3-7.7); Neutrophils % (A) 79 %; RBC 4.03 m/uL (4.30-5.90); WBC 9.7 k/uL (3.8-10.6); WBC (Perox) 10.11
[2016-10-03 07:36] LABS: ALT 84 U/L (21-72); AST 92 U/L (17-59); Alkaline Phosphatase 92 U/L (38-126); Anion Gap 8 mmol/L; Blood Urea Nitrogen 15 mg/dL (9-20); Calcium 8.1 mg/dL (8.4-10.2); Carbon Dioxide 26 mmol/L (22-30); Chloride 106 mmol/L (98-107); Glucose 116 mg/dL (74-99); Non-African American GFR(MDRD) >60 (>60 ml/min/1.73 sqM); Potassium 3.6 mmol/L (3.5-5.1); Sodium 140 mmol/L (137-145); Total Bilirubin 1.4 mg/dL (0.2-1.3); Total Protein 5.5 g/dL (6.3-8.2)
[2016-10-03] MEDS: SODIUM CHLORIDE 0.9% 1,000 ML IV SCH (08:18)
[2016-10-03] MEDS: HYDROcodone/APAP 5-325MG 1 EACH TAB PO PRN (08:19)
[2016-10-03] MEDS: PANTOPRAZOLE 40 MG TABLET PO SCH (08:19)
[2016-10-03] MEDS: MULTIVITAMINS, THERA 1 EACH TAB PO SCH (08:19)
[2016-10-03] MEDS: HEPARIN SODIUM,PORCINE 5,000 UNIT/ML 1 ML VIAL SQ SCH ×2 (08:20→20:05)
--- NOTE | 2016-10-03 10:04 | P.PN ---
Subjective Principal diagnosis: Acute cholecystitis Patient doing well today. Pain is improved. LFTs are only slightly elevated. White blood cell count normal. He is afebrile. Objective - Vital Signs Vital signs: Vital Signs Temp 97.6 F 10/03/16 07:00 Pulse 80 10/03/16 07:05 Resp 20 10/03/16 07:00 BP 143/73 10/03/16 07:00 Pulse Ox 93 L 10/03/16 07:00 Intake & Output 10/02/16 10/03/16 10/03/16 18:59 06:59 18:59 Intake Total 2100 420 Output Total 35 20 Balance 2065 400 Intake: IV 1450 Intake, IV Titration 650 50 Amount Piperacillin-Tazobactam 3 50 50 .375 gm In Dextrose/Water 1 50ml.bag @ 12.5 mls/hr IVPB Q8HR [facility] Rx#: [id number] Sodium Chloride 0.9% 1, 600 000 ml @ 50 mls/hr IV . Q20H [facility] Rx#:[id number] Oral 370 Output: Drainage 30 Abdomen 30 Urine 20 Estimated Blood Loss 5 Other: Voiding Method Toilet Toilet # Voids 3 1 - Exam Abdomen: Soft, nondistended, mild tenderness, dressings clean and dry - Labs CBC & Chem 7: 10/03/16 06:50 10/03/16 06:50 Labs: Abnormal Lab Results - Last 24 Hours (Table) 10/02/16 10/03/16 10/03/16 Range/Units 07:35 06:50 06:50 RBC 4.03 L (4.30-5.90) m/uL Hgb 12.5 L (13.0-17.5) gm/dL Hct 38.5 L (39.0-53.0) % Lymphocytes # 0.8 L (1.0-4.8) k/uL Glucose 143 H 116 H (74-99) mg/dL Calcium 8.3 L 8.1 L (8.4-10.2) mg/dL Total Bilirubin 1.6 H 1.4 H (0.2-1.3) mg/dL AST 68 H 92 H (17-59) U/L ALT 84 H (21-72) U/L Total Protein 5.5 L 5.5 L (6.3-8.2) g/dL Albumin 2.8 L 2.7 L (3.5-5.0) g/dL Microbiology - Last 24 Hours (Table) 09/30/16 19:34 Blood Culture - Preliminary Blood No Growth after 48 hours 10/01/16 00:10 Urine Culture - Final Urine,Voided Assessment and Plan (1) Acute cholecystitis Narrative/Plan: Continue antibiotics. Increase activity. Increase diet as tolerated. Status: Acute
[2016-10-03] MEDS: DOCUSATE 100 MG CAP PO SCH (11:06)
--- NOTE | 2016-10-03 13:11 | P.PN ---
Subjective 76-year-old male patient, not having any regular medical follow-up, comes into the hospital because of increased cough and I was consulted to see this patient for suspected right lung pneumonia. . Approximately 3-4 days ago, the patient also had some increased nausea vomiting and some epigastric abdominal discomfort and it progressively got worse to the point where he was unable to get up and move around. He was having also some increased nausea. The patient also was noted to have some weakness on the right side of the body as he noted that while walking and was moving or swelling more to the right. No slurred speech. No headaches. No falls. He also reported cough which was progressively getting worse along with some sputum production on an on-and-off basis. He had also been complaining of generalized fatigue and weakness. He also had some sweating at home. No documented temperature. No regular speed no chills. He denied having any chest pain. No dysuria frequency or urgency. In the emergency department, the patient was also noted to have some altered and depressed mental status. He was diagnosed having a right lung pneumonia with sepsis. He was started with a combination of Rocephin and Zithromax. The patient was admitted to the hospital. His initial white cell count was 21.4. Rest of the electrolytes showed a mild hypokalemia with a potassium of 3.3 and his kidney function showed a BUN of 34 and creatinine of 1.2. The patient had a CAT scan of the chest abdomen and pelvis that showed atelectasis/ consolidation of the posterior right lung base. The patient also had findings concerning of an acute cholecystitis with moderate amount of inflammation along the gallbladder with some fat stranding. The patient also had thickening of the bowel wall adjacent to the hepatic flexure of the colon that could be potentially reactive or inflammatory. Inflammatory fluid was also found to be taken down the right side of the abdomen and small amount of free fluid collecting in the pelvis was seen. Nonobstructive nephrolithiasis and small hiatal hernia was also present. The patient has diffuse colonic diverticulosis and wall thickening of the hepatic flexure was seen. The CAT scan of the brain also showed a dense middle cerebral artery change on the right that could potentially indicate a subacute CVA and addition to that there are changes of age-related atrophy and chronic small vessel ischemia. The carotid Doppler showed no evidence of any hemodynamically significant stenosis. The patient was seen again today in follow-up on the regular medical floor 10/02. He is more awake and alert today as compared to yesterday. A follow-up computed tomography scan of the brain continued to show no acute intracranial process. There was some noted left paranasal sinus congestion. He has no pulmonary complaints. No shortness of breath, cough or congestion. No fever. No night sweats. The plan is for cholecystectomy with Dr. Segovia today. The patient is seen again today 10/03/2016 in follow-up on the regular medical floor. He is currently sitting up in bed. He did undergo a laparoscopic cholecystectomy yesterday. The gallbladder was quite gangrenous. His surgical pain is well controlled. He is currently afebrile. No leukocytosis. Hemodynamically stable. He is maintaining good O2 saturations in the mid 90s on 2 L/m per nasal cannula. Objective - Vital Signs Vital signs: Vital Signs Temp 97.6 F 10/03/16 07:00 Pulse 89 10/03/16 11:32 Resp 20 10/03/16 08:00 BP 143/73 10/03/16 07:00 Pulse Ox 93 L 10/03/16 07:00 Intake & Output 10/02/16 10/03/16 10/03/16 18:59 06:59 18:59 Intake Total 2100 420 Output Total 35 20 Balance 2065 400 Weight 82.5 kg Intake: IV 1450 Intake, IV Titration 650 50 Amount Piperacillin-Tazobactam 3 50 50 .375 gm In Dextrose/Water 1 50ml.bag @ 12.5 mls/hr IVPB Q8HR [facility] Rx#: [id number] Sodium Chloride 0.9% 1, 600 000 ml @ 50 mls/hr IV . Q20H [facility] Rx#:[id number] Oral 370 Output: Drainage 30 Abdomen 30 Urine 20 Estimated Blood Loss 5 Other: Voiding Method Toilet Toilet Toilet # Voids 3 1 1 # Bowel Movements 0 - Exam GENERAL EXAM: Alert, comfortable in no apparent distress. HEAD: Normocephalic. EYES: Normal reaction of pupils, equal size. NOSE: Clear with pink turbinates. THROAT: No erythema or exudates. NECK: No masses, no JVD. CHEST: No chest wall deformity. LUNGS: Equal air entry with her cousin the left lung base. CVS: S1 and S2 normal with no audible murmurs, regular rhythm. ABDOMEN: Surgical sites are clean dry well approximated. SPINE: No scoliosis or deformity SKIN: No rashes CENTRAL NERVOUS SYSTEM: No focal deficits, tone is normal in all 4 extremities. Extremities: There is no significant peripheral edema. No clubbing, no cyanosis. Peripheral pulses are intact. - Labs CBC & Chem 7: 10/03/16 06:50 10/03/16 06:50 Labs: Abnormal Lab Results - Last 24 Hours (Table) 10/03/16 10/03/16 Range/Units 06:50 06:50 RBC 4.03 L (4.30-5.90) m/uL Hgb 12.5 L (13.0-17.5) gm/dL Hct 38.5 L (39.0-53.0) % Lymphocytes # 0.8 L (1.0-4.8) k/uL Glucose 116 H (74-99) mg/dL Calcium 8.1 L (8.4-10.2) mg/dL Total Bilirubin 1.4 H (0.2-1.3) mg/dL AST 92 H (17-59) U/L ALT 84 H (21-72) U/L Total Protein 5.5 L (6.3-8.2) g/dL Albumin 2.7 L (3.5-5.0) g/dL Microbiology - Last 24 Hours (Table) 09/30/16 19:34 Blood Culture - Preliminary Blood No Growth after 48 hours 10/01/16 00:10 Urine Culture - Final Urine,Voided Assessment and Plan Plan: Assessment 1 right lower lobe atelectasis, less likely pneumonia. The possibility of an aspiration cannot be completely excluded 2 altered mental status with a suspected CVA in evolution. The patient had some altered mentation and weakness in the right-sided the body. CAT scan of the brain however is showing some ischemic changes of the right. We'll need an urology evaluation. A follow-up computed tomography scan of the brain did not reveal any acute intracranial abnormalities. 3 radiographically cholecystitis, LFTs are normal and clinically there is no significant right upper quadrant pain or tenderness. The LFTs are normal. He is status post cholecystectomy for a gangrenous gallbladder. Day #1. 4 diffuse diverticulosis 5 nonobstructive nephrolithiasis 6 leukocytosis improving Plan The patient was seen and evaluated by Dr. Bojorquez. He is stable from the pulmonary standpoint. Working well with the incentive spirometer. We will increase his activity as tolerated. He is anxious to go home.
[2016-10-03] MEDS ORDERED: traMADol 50 MG TAB PO PRN (17:00)
[2016-10-03] MEDS ORDERED: HYDROmorphone 1 MG/ML 1 ML SYRINGE IVP PRN (17:00)
[2016-10-04 07:23] LABS: Basophils # (A) 0.1 k/uL (0-0.2); Basophils % (A) 1 %; CH 31.4; CHCM 33.2; Eosinophils # (A) 0.2 k/uL (0-0.7); Eosinophils % (A) 3 %; HCT 38.3 % (39.0-53.0); HDW 2.43; Immature Gran Flag Slight; Luc # (Auto) 0.14; Luc % (Auto) 2; Lymphocytes # (A) 0.7 k/uL (1.0-4.8); Lymphocytes % (A) 10 %; MCH 32.3 pg (25.0-35.0); MCV 94.9 fL (80.0-100.0); Mean Platelet Volume 6.6; Monocytes # (A) 0.5 k/uL (0-1.0); Monocytes % (A) 6 %; Neutrophils # (A) 5.8 k/uL (1.3-7.7); Neutrophils % (A) 78 %; RBC 4.03 m/uL (4.30-5.90); RDW 13.1 % (11.5-15.5); WBC 7.3 k/uL (3.8-10.6); WBC (Perox) 7.67
[2016-10-04 07:38] LABS: Anion Gap 9 mmol/L; Blood Urea Nitrogen 11 mg/dL (9-20); Calcium 8.2 mg/dL (8.4-10.2); Carbon Dioxide 25 mmol/L (22-30); Chloride 105 mmol/L (98-107); Glucose 122 mg/dL (74-99); Non-African American GFR(MDRD) >60 (>60 ml/min/1.73 sqM); Potassium 3.8 mmol/L (3.5-5.1); Sodium 139 mmol/L (137-145)
[2016-10-04] MEDS: SODIUM CHLORIDE 0.9% 1,000 ML IV SCH (07:52)
[2016-10-04] MEDS: PIPERACILLIN-TAZOBACTAM 3.375 GM in DEXTROSE/WATER 1 50ML.BAG IVPB SCH (07:53)
[2016-10-04 07:58] VITALS: BP 176/82; RESP 18; TEMP 97.4
[2016-10-04] MEDS: PANTOPRAZOLE 40 MG TABLET PO SCH (08:00)
[2016-10-04] MEDS: HEPARIN SODIUM,PORCINE 5,000 UNIT/ML 1 ML VIAL SQ SCH (08:01)
[2016-10-04] MEDS: IPRATROPIUM 0.5 MG/2.5 ML NEBU INHALATION SCH ×2 (08:01→11:08)
[2016-10-04] MEDS: SYMBICORT 160-4.5 MCG INHALER INHALATION SCH (08:01)
[2016-10-04] MEDS: LEVALBUTEROL NEB (CONC) 1.25 MG/0.5 ML AMP INHALATION SCH ×2 (08:01→11:08)
[2016-10-04] MEDS: DOCUSATE 100 MG CAP PO SCH (08:01)
--- NOTE | 2016-10-04 08:29 | PN ---
DATE OF SERVICE: 10/03/2016 This 76 -year-old gentleman admitted with right lower lobe pneumonia also had gangrenous cholecystitis. The patient underwent cholecystectomy. Patient improved significantly. No chest pain. No palpitation. No fever. Dr. Segovia and Dr. Bojorquez following the patient closely. On exam, alert and oriented x3. Pulse is 77, blood pressure 150/74. Respirations 16, temperature 97.9. Pulse ox 98% on room air. HEENT: Conjunctivae normal. NECK: No jugular venous distention. CARDIOVASCULAR: S1, S2 muffled. RESPIRATORY: Breath sounds diminished at the bases. Scattered rhonchi. No crackles. ABDOMEN: Soft. Status post surgery. LEGS: No edema. No swelling. CENTRAL NERVOUS SYSTEM: No focal deficits. LABS: WBC 9.7, hemoglobin 12.5, 1.4, AST 92, ALT is 84, albumin is 2.7. ASSESSMENT: 1. Acute right lower lobe pneumonia, possibly gram-negative sepsis, present on admission. 2. Acute gangrenous cholecystitis with colitis, inflammatory reaction, present on admission status post laparoscopic cholecystectomy. 3. Chronic obstructive pulmonary disease, acute exacerbation. 4. 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 5. Increased WBC. 6. Hyponatremia. 7. Hypokalemia. 8. Increased total bilirubin possibly secondary to sepsis. 9. Increased AST, ALT, rule out hepatitis. 10. Hypoalbuminemia with mild to moderate protein calorie malnutrition. 11. History of nicotine dependence. 12. History of degenerative joint disease. 13. FULL CODE. RECOMMENDATIONS AND DISCUSSION: Recommend to continue current medications, continue with monitoring, symptomatic treatment. Otherwise, at this time, broad-spectrum IV antibiotics. I would continue with the current medications. Avoid Tylenol -containing products. Otherwise, see orders for further details. We will use Ultram also. Guarded prognosis. Further recommendations to follow. MTDD
[2016-10-04 11:19] VITALS: PULSE 80
[2016-10-04] MEDS: MULTIVITAMINS, THERA 1 EACH TAB PO SCH (12:28)
[2016-10-04 12:38] LABS: Bilirubin, Delta 0.5 mg/dL (0.0-0.2); Total Bilirubin 1.1 mg/dL (0.2-1.3); Total Protein 5.4 g/dL (6.3-8.2)
--- NOTE | 2016-10-04 12:39 | P.PN ---
Subjective Principal diagnosis: Acute cholecystitis Patient doing well today. Energy level seems improved. He is tolerating his diet. PRADEEP drain is serosanguineous. Objective - Vital Signs Vital signs: Vital Signs Temp 97.4 F L 10/04/16 07:00 Pulse 80 10/04/16 11:19 Resp 18 10/04/16 08:00 BP 176/82 10/04/16 07:00 Pulse Ox 91 L 10/04/16 07:00 Intake & Output 10/03/16 10/04/16 10/04/16 18:59 06:59 18:59 Intake Total 530 180 Output Total 30 70 Balance 500 180 -70 Weight 82.5 kg 82.5 kg Intake: Intake, IV Titration 50 Amount Piperacillin-Tazobactam 3 50 .375 gm In Dextrose/Water 1 50ml.bag @ 12.5 mls/hr IVPB Q8HR [facility] Rx#: [id number] Oral 480 180 Output: Drainage 30 70 Abdomen 30 70 Other: Voiding Method Toilet Toilet Toilet Urinal Urinal Urinal # Voids 3 1 1 # Bowel Movements 0 - Exam Abdomen: Soft, nondistended, incision clean and dry and - Labs CBC & Chem 7: 10/04/16 06:50 10/04/16 06:50 Labs: Abnormal Lab Results - Last 24 Hours (Table) 10/04/16 10/04/16 Range/Units 06:50 06:50 RBC 4.03 L (4.30-5.90) m/uL Hct 38.3 L (39.0-53.0) % Lymphocytes # 0.7 L (1.0-4.8) k/uL Glucose 122 H (74-99) mg/dL Calcium 8.2 L (8.4-10.2) mg/dL Microbiology - Last 24 Hours (Table) 09/30/16 19:34 Blood Culture - Preliminary Blood No Growth after 72 hours Assessment and Plan (1) Acute cholecystitis Narrative/Plan: Continue increase activity levels. May discharge if cleared by primary. Patient will follow up me in 1 week for drain removal. Status: Acute
--- NOTE | 2016-10-04 12:47 | XR ---
EXAMINATION TYPE: XR chest 1V portable DATE OF EXAM: 10/04/2016 COMPARISON: 09/30/2016 HISTORY: Pneumonia. Chest pain TECHNIQUE: Single frontal view of the chest is obtained. FINDINGS: There is patchy atelectasis and infiltrate at the right lung base. There is slight elevate d right diaphragm. There is no heart failure. Thoracic aorta is atheromatous. IMPRESSION: There is new mild infiltrate and atelectasis at the right lung base compared to last exa m. No heart failure.
--- NOTE | 2016-10-04 13:04 | P.PN ---
Subjective 76-year-old male patient, not having any regular medical follow-up, comes into the hospital because of increased cough and I was consulted to see this patient for suspected right lung pneumonia. . Approximately 3-4 days ago, the patient also had some increased nausea vomiting and some epigastric abdominal discomfort and it progressively got worse to the point where he was unable to get up and move around. He was having also some increased nausea. The patient also was noted to have some weakness on the right side of the body as he noted that while walking and was moving or swelling more to the right. No slurred speech. No headaches. No falls. He also reported cough which was progressively getting worse along with some sputum production on an on-and-off basis. He had also been complaining of generalized fatigue and weakness. He also had some sweating at home. No documented temperature. No regular speed no chills. He denied having any chest pain. No dysuria frequency or urgency. In the emergency department, the patient was also noted to have some altered and depressed mental status. He was diagnosed having a right lung pneumonia with sepsis. He was started with a combination of Rocephin and Zithromax. The patient was admitted to the hospital. His initial white cell count was 21.4. Rest of the electrolytes showed a mild hypokalemia with a potassium of 3.3 and his kidney function showed a BUN of 34 and creatinine of 1.2. The patient had a CAT scan of the chest abdomen and pelvis that showed atelectasis/ consolidation of the posterior right lung base. The patient also had findings concerning of an acute cholecystitis with moderate amount of inflammation along the gallbladder with some fat stranding. The patient also had thickening of the bowel wall adjacent to the hepatic flexure of the colon that could be potentially reactive or inflammatory. Inflammatory fluid was also found to be taken down the right side of the abdomen and small amount of free fluid collecting in the pelvis was seen. Nonobstructive nephrolithiasis and small hiatal hernia was also present. The patient has diffuse colonic diverticulosis and wall thickening of the hepatic flexure was seen. The CAT scan of the brain also showed a dense middle cerebral artery change on the right that could potentially indicate a subacute CVA and addition to that there are changes of age-related atrophy and chronic small vessel ischemia. The carotid Doppler showed no evidence of any hemodynamically significant stenosis. The patient was seen again today in follow-up on the regular medical floor 10/02. He is more awake and alert today as compared to yesterday. A follow-up computed tomography scan of the brain continued to show no acute intracranial process. There was some noted left paranasal sinus congestion. He has no pulmonary complaints. No shortness of breath, cough or congestion. No fever. No night sweats. The plan is for cholecystectomy with Dr. Segovia today. The patient is seen again today 10/03/2016 in follow-up on the regular medical floor. He is currently sitting up in bed. He did undergo a laparoscopic cholecystectomy yesterday. The gallbladder was quite gangrenous. His surgical pain is well controlled. He is currently afebrile. No leukocytosis. Hemodynamically stable. He is maintaining good O2 saturations in the mid 90s on 2 L/m per nasal cannula. On 10/04/2016, the patient is postop following cholecystectomy. Doing well. No stridor difficulties. No nausea or vomiting. Gradually getting stronger. Afebrile. No focal neurological deficits. No signs of any CVA at this point. Objective - Vital Signs Vital signs: Vital Signs Temp 97.4 F L 10/04/16 07:00 Pulse 80 10/04/16 11:19 Resp 18 10/04/16 08:00 BP 176/82 10/04/16 07:00 Pulse Ox 91 L 10/04/16 07:00 Intake & Output 10/03/16 10/04/16 10/04/16 18:59 06:59 18:59 Intake Total 530 180 Output Total 30 70 Balance 500 180 -70 Weight 82.5 kg 82.5 kg Intake: Intake, IV Titration 50 Amount Piperacillin-Tazobactam 3 50 .375 gm In Dextrose/Water 1 50ml.bag @ 12.5 mls/hr IVPB Q8HR [facility] Rx#: [id number] Oral 480 180 Output: Drainage 30 70 Abdomen 30 70 Other: Voiding Method Toilet Toilet Toilet Urinal Urinal Urinal # Voids 3 1 1 # Bowel Movements 0 - Exam GENERAL EXAM: Alert, comfortable in no apparent distress. HEAD: Normocephalic. EYES: Normal reaction of pupils, equal size. NOSE: Clear with pink turbinates. THROAT: No erythema or exudates. NECK: No masses, no JVD. CHEST: No chest wall deformity. LUNGS: Equal air entry with her cousin the left lung base. CVS: S1 and S2 normal with no audible murmurs, regular rhythm. ABDOMEN: Surgical sites are clean dry well approximated. SPINE: No scoliosis or deformity SKIN: No rashes CENTRAL NERVOUS SYSTEM: No focal deficits, tone is normal in all 4 extremities. Extremities: There is no significant peripheral edema. No clubbing, no cyanosis. Peripheral pulses are intact - Labs CBC & Chem 7: 10/04/16 06:50 10/04/16 06:50 Labs: Abnormal Lab Results - Last 24 Hours (Table) 10/04/16 10/04/16 10/04/16 Range/Units 06:50 06:50 06:50 RBC 4.03 L (4.30-5.90) m/uL Hct 38.3 L (39.0-53.0) % Lymphocytes # 0.7 L (1.0-4.8) k/uL Glucose 122 H (74-99) mg/dL Calcium 8.2 L (8.4-10.2) mg/dL Delta Bilirubin 0.5 H (0.0-0.2) mg/dL AST 90 H (17-59) U/L ALT 93 H (21-72) U/L Total Protein 5.4 L (6.3-8.2) g/dL Albumin 2.6 L (3.5-5.0) g/dL Microbiology - Last 24 Hours (Table) 09/30/16 19:34 Blood Culture - Preliminary Blood No Growth after 72 hours Assessment and Plan Plan: Assessment 1 right lower lobe atelectasis, less likely pneumonia. The possibility of an aspiration cannot be completely excluded 2 altered mental status , recovered 3 acute cholecystitis, status post cholecystectomy and the patient is postop day #2 4 diffuse diverticulosis 5 nonobstructive nephrolithiasis 6 leukocytosis improving and the white cell count is down to 7.3 Plan Pulmonary status is stable. Keep the PRADEEP drain in place. Ambulate in the hallway. A walker was obtained. White cell count is improved. Discharge planning per medicine. Pulmonary we'll sign off the case.
--- NOTE | 2016-10-04 13:20 | P.PN ---
Subjective Principal diagnosis: Altered mental status, electrolyte imbalance Note that this documentation was originally completed on 10/03/2016 but was not saved by the documentation software and is being redictated at this time. Patient was not seen on 10/04/16. This is reflective of the patient's interaction with provider on October 03, 2016. Patient is a 76-year-old male being followed by neurology at the request of Dr. Leung for altered mental status and generalized weakness. Patient's symptoms started last Wednesday night and Wednesday when he started having significant nausea and bowel amending. Patient was beginning to feel weak and noticed he had reduced energy. By mid week he is unable to get out of bed. began noticing some confusion. Patient denied any lateralizing weakness, numbness or tingling. His brought to the emergency department for further workup and management. Patient was found to have pneumonia and evidence of cholecystitis. Dr. Velázquez performed laparoscopic cholecystectomy on October 02 and the patient was off the floor during rounding. CT scan of the brain showed no acute abnormalities. There was evidence of a dense right MCA sign but the patient is not having any lateralizing weakness. There was generalized atrophy and small vessel ischemic changes noted. Patient was on IV antibiotics. Carotid Doppler was done which showed no hemodynamically significant stenosis. CBC showed leukocytosis but was otherwise normal his CMP showed hyponatremia, hypokalemia and elevated BUN. His urinalysis was normal. Back contact today, the patient was supine in bed awake, alert and oriented 3 in no acute distress with spouse at bedside. Patient is actively recovering from laparoscopic cholecystectomy. Patient denies any lateralizing weakness, any numbness or tingling, any altered mental status or other neurological dysfunction. Objective - Vital Signs Vital signs: Vital Signs Temp 97.4 F L 10/04/16 07:00 Pulse 80 10/04/16 11:19 Resp 18 10/04/16 08:00 BP 176/82 10/04/16 07:00 Pulse Ox 91 L 10/04/16 07:00 Intake & Output 10/03/16 10/04/16 10/04/16 18:59 06:59 18:59 Intake Total 530 180 Output Total 30 70 Balance 500 180 -70 Weight 82.5 kg 82.5 kg Intake: Intake, IV Titration 50 Amount Piperacillin-Tazobactam 3 50 .375 gm In Dextrose/Water 1 50ml.bag @ 12.5 mls/hr IVPB Q8HR [facility] Rx#: [id number] Oral 480 180 Output: Drainage 30 70 Abdomen 30 70 Other: Voiding Method Toilet Toilet Toilet Urinal Urinal Urinal # Voids 3 1 1 # Bowel Movements 0 - Exam Constitutional: AOx3, cooperative HEENT: NC/AT, no facial asymmetry is seen. Throat: Supple, no masses Respiratory: No increased work of breathing Cardiac: Regular rate and Rhythm GI: non tender, non distended Musculoskeletal: Gun Mechanic strengths are equal bilaterally 5/5, Lower extremity strengths are equal bilaterally at 5/5. Tenderness to the abdomen with touch and palpation with visible surgical incision sites with dressings applied. Neurological: CN II-XII in tact, patient was AOx3, speech and language are normal, no unilateralizing weakness, no seizure activity note on physical exam. Sensation was normal. Integementary: no rash, no erythema Psychiatric: mood and affect appropriate - Labs CBC & Chem 7: 10/04/16 06:50 10/04/16 06:50 Labs: Abnormal Lab Results - Last 24 Hours (Table) 10/04/16 10/04/16 10/04/16 Range/Units 06:50 06:50 06:50 RBC 4.03 L (4.30-5.90) m/uL Hct 38.3 L (39.0-53.0) % Lymphocytes # 0.7 L (1.0-4.8) k/uL Glucose 122 H (74-99) mg/dL Calcium 8.2 L (8.4-10.2) mg/dL Delta Bilirubin 0.5 H (0.0-0.2) mg/dL AST 90 H (17-59) U/L ALT 93 H (21-72) U/L Total Protein 5.4 L (6.3-8.2) g/dL Albumin 2.6 L (3.5-5.0) g/dL Microbiology - Last 24 Hours (Table) 09/30/16 19:34 Blood Culture - Preliminary Blood No Growth after 72 hours Assessment and Plan (1) Acute cholecystitis Status: Acute (2) Sepsis Status: Acute Plan: 1. Sepsis 2. CholecystitisResolved Sepsis: Patient was known to be experiencing sepsis based on laboratory analysis , presentation and symptoms. Post laparoscopic cholecystitis, the patient is recovering well and has known remaining neurological deficits related to his sepsis or any other underlying neurological disorder. Cholecystitis: Patient did undergo laparoscopic cholecystectomy at which time it was noted that his gallbladder did have presence of gangrenous material. Patient is being followed by surgical team. Defer to surgical team for further recommendations and management. Patient can be cleared from discharged from a neurological standpoint. Patient to follow up in our office after discharge within 10-14 days. Feel free to contact our office with any questions. I discussed the patient's pertinent medical information with Dr. Wallis. He agrees with the plan of care as implemented.
--- NOTE | 2016-10-05 21:23 | DS ---
DATE OF ADMISSION: 09/30/2016 DATE OF DISCHARGE: 10/04/2016 FINAL DIAGNOSES: 1. Acute gangrenous cholecystitis with adjacent colitis and probably inflammatory reaction present on admission status post laparoscopic cholecystectomy. 2. Acute right lobe pneumonia, possibly gram-negative with sepsis, present on admission, improved. 3. Chronic obstructive pulmonary disease, acute exacerbation, improved. 4. 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 5. Increased WBC. 6. Hyponatremia. 7. Hypokalemia. 8. Increased total bilirubin possibly secondary to sepsis. 9. Increased AST/ALT, rule out hepatitis. 10. Hypoalbuminemia with mild to moderate protein calorie malnutrition. 11. History of nicotine dependence. 12. Degenerative joint disease. 13. FULL CODE. DISCHARGE DISPOSITION: The patient will be discharged in stable condition with guarded prognosis. Total time taken 35 minutes. HISTORY OF PRESENT ILLNESS: This 76-year-old gentleman with a past medical history of multiple medical problems was admitted with acute pneumonia. Evaluation gangrenous cholecystitis, adjacent colitis. Dr. Segovia performed laparoscopic cholecystectomy. Please refer to Dr. Segovia's notes for further information. The patient improved significantly. Seen by Dr. Bojorquez, neurology and other multiple consultants. Overall, the patient improvement. On exam, vitals stable. CARDIOVASCULAR SYSTEM: S1, S2 muffled. RESPIRATORY: A few rhonchi. ABDOMEN: no tenderness. CENTRAL NERVOUS SYSTEM: No focal deficits. DISCHARGE ADVICE AND MEDICATIONS: 1. Diet is cardiac. 2. Activity limited until follow-up. 3. Follow-up with Dr. Cope 2 to 3 days. 4. Follow-up with Dr. Bojorquez in one week. 5. Follow-up with Dr. Segovia in one week. 6. Medications are home medications albuterol 2 puffs q.6. 7. Augmentin 875 mg p.o. b.i.d. for 5 days. 8. Symbicort 160/4.5 2 puffs b.i.d. 9. Colace 100 mg p.o. b.i.d. 10. Multivitamins one p.o. daily. 11. Protonix 40 mg daily. 12. Ultram 50 mg p.o. q.i.d. p.r.n. CBC, BMP. Continue to monitor. MTDD
--- NOTE | 2016-10-06 08:18 | EEG ---
DATE OF SERVICE: 10/02/2016 REASON FOR TESTING: Altered mental status. AGE: 76Y DESCRIPTION OF THE PROCEDURE: This EEG was performed using a 21-channel digital electroencephalograph, following the international 10 - 20 system. DESCRIPTION OF THE RECORDING: From the beginning of the tracing, and with the patient's eyes closed, the background rhythm was mostly consisting of 8 Hz alpha frequency in the posterior occipital leads. No obvious asymmetry is seen. Photic stimulation was performed with no driving response seen. No pathological waves were elicited. Hyperventilation was not performed. Occasional movement artifacts, muscle artifacts and lead artifacts are seen. The patient remains awake throughout the tracing. No epileptiform discharges were seen. His EKG lead showed a regular rate and rhythm. INTERPRETATION: This awake EEG can be considered within normal limits. There was no asymmetry seen. No epileptiform discharges were noticed. The absence of epileptiform discharges does not rule out the diagnosis of epilepsy, therefore, clinical correlation is recommended.
== END 2016-10-04 15:40 | disposition home or self-care (01) | DRG 853 ==
LOC: EC 18:41 → 5MS5E 20:33
PROVIDERS: ADMIT Hospitalist; ATTEND Hospitalist
PROC: 0FT44ZZ Resection of Gallbladder, Percutaneous Endoscopic Approach (ICD-10-PCS; principal; 2016-10-02 08:45)
DX: A41.9 Sepsis, unspecified organism (principal); J15.6 Pneumonia due to other Gram-negative bacteria; G93.40 Encephalopathy, unspecified; E44.0 Moderate protein-calorie malnutrition; K81.0 Acute cholecystitis; J44.0 Chronic obstructive pulmonary disease with (acute) lower respiratory infection; E87.1 Hypo-osmolality and hyponatremia; J44.1 Chronic obstructive pulmonary disease with (acute) exacerbation; J98.11 Atelectasis; E87.6 Hypokalemia; K44.9 Diaphragmatic hernia without obstruction or gangrene; N20.0 Calculus of kidney; R26.2 Difficulty in walking, not elsewhere classified; M19.91 Primary osteoarthritis, unspecified site; K57.30 Diverticulosis of large intestine without perforation or abscess without bleeding; Z86.73 Personal history of transient ischemic attack (TIA), and cerebral infarction without residual deficits; Z87.891 Personal history of nicotine dependence; Z79.82 Long term (current) use of aspirin
CPT/HCPCS: 36415; 70450; 71010; 71020; 71250; 74176; 80048; 80053; 80061; 80076; 81003; 82150; 82550; 82553; 83090; 83605; 84484; 85025; 85610; 85730; 87040; 87086; 87502; 88304; 93005; 93306; 93880; 94640; 94664; 95819; 96361; 96365; 96367; 96375; 99285

== ENCOUNTER → 2016-10-30 | Outpatient (CLI) | payer MEDICARE ==
[2016-10-30 08:21] LABS: Basophils # (A) 0.1 k/uL (0-0.2); Basophils % (A) 2 %; CH 31.1; CHCM 34.5; Eosinophils # (A) 0.4 k/uL (0-0.7); Eosinophils % (A) 5 %; HCT 45.3 % (39.0-53.0); HDW 2.57; HGB 15.6 gm/dL (13.0-17.5); Luc # (Auto) 0.17; Luc % (Auto) 2; Lymphocytes # (A) 1.7 k/uL (1.0-4.8); Lymphocytes % (A) 23 %; MCH 31.1 pg (25.0-35.0); MCHC 34.4 g/dL (31.0-37.0); MCV 90.5 fL (80.0-100.0); Mean Platelet Volume 6.6; Monocytes # (A) 0.5 k/uL (0-1.0); Monocytes % (A) 7 %; Neutrophils # (A) 4.6 k/uL (1.3-7.7); Neutrophils % (A) 62 %; RBC 5.01 m/uL (4.30-5.90); WBC 7.4 k/uL (3.8-10.6)
[2016-10-30 09:28] LABS: ALT 42 U/L (21-72); AST 32 U/L (17-59); Alkaline Phosphatase 84 U/L (38-126); Anion Gap 12 mmol/L; Blood Urea Nitrogen 11 mg/dL (9-20); Calcium 9.7 mg/dL (8.4-10.2); Carbon Dioxide 24 mmol/L (22-30); Chloride 106 mmol/L (98-107); Cholesterol 196 mg/dL (<200); Glucose 108 mg/dL (74-99); HDL Cholesterol 71 mg/dL (40-60); Non-African American GFR(MDRD) >60 (>60 ml/min/1.73 sqM); Potassium 4.2 mmol/L (3.5-5.1); Sodium 142 mmol/L (137-145); Total Bilirubin 0.8 mg/dL (0.2-1.3); Total Protein 7.5 g/dL (6.3-8.2); Triglycerides 111 mg/dL (<150)
[2016-10-30 09:57] LABS: Prostate Specific Antigen 1.57 ng/mL (0.00-4.00)
== END | disposition home or self-care (01) ==
LOC: LABWHC1 07:55
PROVIDERS: ATTEND Family Medicine
DX: Z13.220 Encounter for screening for lipoid disorders (principal); Z12.5 Encounter for screening for malignant neoplasm of prostate
CPT/HCPCS: 36415; 80053; 80061; 82306; 84153; 84443; 85025

== ENCOUNTER → 2017-03-16 | Outpatient (CLI) | payer MEDICARE | END | disposition home or self-care (01) | LOC: LABWHC1 08:58 | PROVIDERS: ATTEND Family Medicine | DX: R73.01 Impaired fasting glucose (principal) | CPT/HCPCS: 36415; 82306; 83036 ==

== ENCOUNTER 2021-12-29 14:48 | Inpatient (IN) | payer MEDICARE ==
[2021-12-29] MEDS ORDERED: IBUPROFEN 600 MG TAB PO STA (15:27)
--- NOTE | 2021-12-29 15:34 | ED ---
General Adult HPI - General Chief complaint: Altered Mental Status Stated complaint: AMS Time Seen by Provider: 12/29/21 14:50 Source: patient, EMS, RN notes reviewed, old records reviewed Mode of arrival: EMS - History of Present Illness Initial comments: This is an 81-year-old male who presents emergency Department with no significant past medical history according to the . According to the patient started becoming a little weaker on yesterday and then today as the day progressed became more more fatigued didn't want to eat did not have any coffee and then be became a little more confused. Patient himself has no complaints currently. Patient is confused however he thinks it's 2005. Patient denies any chest pain patient denies any palpitations or shortness of breath. Patient denies abdominal pain patient denies nausea vomiting diarrhea. Patient has had a cholecystectomy in the past. states the patient has not had any fever or chills that he knows of however in the emergency department we did get a temperature. - Related Data Home Medications Medication Instructions Recorded Confirmed Acetaminophen [Tylenol Arthritis] 650 mg PO Q8H PRN 12/29/21 12/29/21 Allergies Allergy/AdvReac Type Severity Reaction Status Date / Time No Known Allergies Allergy Verified 12/29/21 17:34 Review of Systems ROS Statement: Those systems with pertinent positive or pertinent negative responses have been documented in the HPI. ROS Other: All systems not noted in ROS Statement are negative. Past Medical History Past Medical History: No Reported History Additional Past Medical History / Comment(s): Cataracts History of Any Multi-Drug Resistant Organisms: None Reported Past Surgical History: Cholecystectomy Past Anesthesia/Blood Transfusion Reactions: No Reported Reaction Past Psychological History: No Psychological Hx Reported Smoking Status: Never smoker Past Alcohol Use History: None Reported Past Drug Use History: None Reported - Past Family History Father Family Medical History: Pneumonia Mother Family Medical History: Unable to Obtain General Exam - General Exam Comments Initial Comments: GENERAL: Patient is well-developed and well-nourished. Patient is nontoxic and well- hydrated and is in no acute distress. ENT: Neck is soft and supple. No significant lymphadenopathy is noted. Oropharynx is clear. Moist mucous membranes. Neck has full range of motion without eliciting any pain. There is no thyroid enlargement and no masses were felt. EYES: Patient has sclera icterus. Extraocular movements were intact and pupils were equal round and reactive to light. Eyelids were unremarkable. PULMONARY: Unlabored respirations. Good breath sounds bilaterally. No audible rales rhonchi or wheezing was noted. CARDIOVASCULAR: There is a regular rate and rhythm without any murmurs gallops or rubs. ABDOMEN: Soft and nontender with normal bowel sounds. No palpable organomegaly was noted. There is no palpable pulsatile mass. SKIN: Patient is jaundiced NEUROLOGIC: Patient is alert and oriented 2. Cranial nerves II through XII are grossly intact. Motor and sensory are also intact. Normal speech, volume and content. Symmetrical smile. MUSCULOSKELETAL: Normal extremities with adequate strength and full range of motion. No lower extremity swelling or edema. No calf tenderness. LYMPHATICS: No significant lymphadenopathy is noted PSYCHIATRIC: Unable to assess since patient is altered. Course Vital Signs 12/29/21 12/29/21 12/29/21 15:01 16:45 17:15 Temperature 102.5 F H 103.1 F H Pulse Rate 94 145 H 112 H Respiratory 18 22 18 Rate Blood Pressure 125/91 160/84 O2 Sat by Pulse 94 L 94 L 91 L Oximetry 12/29/21 12/29/21 12/29/21 17:51 18:57 19:15 Temperature 101.3 F H 99.3 F 98.3 F Pulse Rate 101 H 81 87 Respiratory 17 17 16 Rate Blood Pressure 121/77 128/64 149/73 O2 Sat by Pulse 96 96 98 Oximetry Medical Decision Making - Medical Decision Making EKG shows sinus rhythm at 92 bpm NJ interval 281 QRS is 99 QT interval 346 QTC is 395. Patient's EKG shows no ST segment elevation or depression. I was sound physician's agreed to admit the patient admitted the patient I wrote admitting orders - Lab Data Result diagrams: 12/29/21 15:31 12/29/21 15:33 Lab Results 12/29/21 12/29/21 12/29/21 Range/Units 15:31 15:31 15:31 WBC 11.7 H (3.8-10.6) k/uL RBC 4.59 (4.30-5.90) m/uL Hgb 14.4 (13.0-17.5) gm/dL Hct 45.1 (39.0-53.0) % MCV 98.1 (80.0-100.0) fL MCH 31.4 (25.0-35.0) pg MCHC 32.0 (31.0-37.0) g/dL RDW 13.2 (11.5-15.5) % Plt Count 166 (150-450) k/uL MPV 8.9 Neutrophils % 88 % Lymphocytes % 4 % Monocytes % 7 % Eosinophils % 0 % Basophils % 0 % Neutrophils # 10.3 H (1.3-7.7) k/uL Lymphocytes # 0.5 L (1.0-4.8) k/uL Monocytes # 0.8 (0-1.0) k/uL Eosinophils # 0.0 (0-0.7) k/uL Basophils # 0.0 (0-0.2) k/uL PT 10.7 (9.0-12.0) sec INR 1.0 (<1.2) APTT 22.2 (22.0-30.0) sec Sodium (137-145) mmol/L Potassium (3.5-5.1) mmol/L Chloride (98-107) mmol/L Carbon Dioxide (22-30) mmol/L Anion Gap mmol/L BUN (9-20) mg/dL Creatinine (0.66-1.25) mg/dL Est GFR (CKD-EPI)AfAm (>60 ml/min/1.73 sqM) Est GFR (CKD-EPI)NonAf (>60 ml/min/1.73 sqM) Glucose (74-99) mg/dL Plasma Lactic Acid Nestor 1.2 (0.7-2.0) mmol/L Calcium (8.4-10.2) mg/dL Total Bilirubin (0.2-1.3) mg/dL AST (17-59) U/L ALT (4-49) U/L Alkaline Phosphatase (38-126) U/L Ammonia 26 (<30) umol/L Total Protein (6.3-8.2) g/dL Albumin (3.5-5.0) g/dL Urine Color Urine Appearance (Clear) Urine pH (5.0-8.0) Ur Specific [place] (1.001-1.035) Urine Protein (Negative) Urine Glucose (UA) (Negative) Urine Ketones (Negative) Urine Blood (Negative) Urine Nitrite (Negative) Urine Bilirubin (Negative) Urine Urobilinogen (<2.0) mg/dL Ur Leukocyte Esterase (Negative) Urine RBC (0-5) /hpf Urine WBC (0-5) /hpf Urine Mucus (None) /hpf Acetaminophen ug/mL 12/29/21 12/29/21 12/29/21 Range/Units 15:31 15:33 16:00 WBC (3.8-10.6) k/uL RBC (4.30-5.90) m/uL Hgb (13.0-17.5) gm/dL Hct (39.0-53.0) % MCV (80.0-100.0) fL MCH (25.0-35.0) pg MCHC (31.0-37.0) g/dL RDW (11.5-15.5) % Plt Count (150-450) k/uL MPV Neutrophils % % Lymphocytes % % Monocytes % % Eosinophils % % Basophils % % Neutrophils # (1.3-7.7) k/uL Lymphocytes # (1.0-4.8) k/uL Monocytes # (0-1.0) k/uL Eosinophils # (0-0.7) k/uL Basophils # (0-0.2) k/uL PT (9.0-12.0) sec INR (<1.2) APTT (22.0-30.0) sec Sodium 132 L (137-145) mmol/L Potassium 4.1 (3.5-5.1) mmol/L Chloride 100 (98-107) mmol/L Carbon Dioxide 21 L (22-30) mmol/L Anion Gap 11 mmol/L BUN 19 (9-20) mg/dL Creatinine 0.66 (0.66-1.25) mg/dL Est GFR (CKD-EPI)AfAm >90 (>60 ml/min/1.73 sqM) Est GFR (CKD-EPI)NonAf 90 (>60 ml/min/1.73 sqM) Glucose 172 H (74-99) mg/dL Plasma Lactic Acid Nestor (0.7-2.0) mmol/L Calcium 8.6 (8.4-10.2) mg/dL Total Bilirubin 8.2 H (0.2-1.3) mg/dL AST 240 H (17-59) U/L ALT 168 H (4-49) U/L Alkaline Phosphatase 613 H (38-126) U/L Ammonia (<30) umol/L Total Protein 7.5 (6.3-8.2) g/dL Albumin 3.8 (3.5-5.0) g/dL Urine Color [place] Urine Appearance Cloudy (Clear) Urine pH 5.5 (5.0-8.0) Ur Specific [place] 1.023 (1.001-1.035) Urine Protein Trace H (Negative) Urine Glucose (UA) Trace H (Negative) Urine Ketones Negative (Negative) Urine Blood Negative (Negative) Urine Nitrite Negative (Negative) Urine Bilirubin 2+ H (Negative) Urine Urobilinogen 3.0 (<2.0) mg/dL Ur Leukocyte Esterase Negative (Negative) Urine RBC 2 (0-5) /hpf Urine WBC 2 (0-5) /hpf Urine Mucus Few H (None) /hpf Acetaminophen <10.0 ug/mL Disposition Clinical Impression: Jaundice, Hepatitis Disposition: ADMITTED IP TO THIS HOSP Referrals: None,Stated [Primary Care Provider] - 1-2 days Time of Disposition: 20:18
[2021-12-29 15:50] LABS: Basophils % (A) 0 %; Eosinophils % (A) 0 %; HCT 45.1 % (39.0-53.0); HGB 14.4 gm/dL (13.0-17.5); Lymphocytes # (A) 0.5 k/uL (1.0-4.8); Lymphocytes % (A) 4 %; MCH 31.4 pg (25.0-35.0); MCV 98.1 fL (80.0-100.0); Mean Platelet Volume 8.9; Monocytes # (A) 0.8 k/uL (0-1.0); Monocytes % (A) 7 %; Neutrophils # (A) 10.3 k/uL (1.3-7.7); Neutrophils % (A) 88 %; Platelet Count 166 k/uL (150-450); RBC 4.59 m/uL (4.30-5.90); RDW 13.2 % (11.5-15.5); WBC 11.7 k/uL (3.8-10.6)
[2021-12-29 16:06] LABS: Lactic Acid, Venous 1.2 mmol/L (0.7-2.0)
[2021-12-29 16:06] LABS: ALT 168 U/L (4-49); AST 240 U/L (17-59); African American GFR (CKD) >90 (>60 ml/min/1.73 sqM); Albumin 3.8 g/dL (3.5-5.0); Alkaline Phosphatase 613 U/L (38-126); Anion Gap 11 mmol/L; Blood Urea Nitrogen 19 mg/dL (9-20); Calcium 8.6 mg/dL (8.4-10.2); Carbon Dioxide 21 mmol/L (22-30); Chloride 100 mmol/L (98-107); Glucose 172 mg/dL (74-99); Non-African American GFR(CKD) 90 (>60 ml/min/1.73 sqM); Sodium 132 mmol/L (137-145); Total Bilirubin 8.2 mg/dL (0.2-1.3); Total Protein 7.5 g/dL (6.3-8.2)
[2021-12-29] MEDS ORDERED: IBUPROFEN IV 400 MG in SODIUM CHLORIDE 0.9% 100 ML IV ONE (16:17)
[2021-12-29 16:19] LABS: Potassium 4.1 mmol/L (3.5-5.1)
[2021-12-29 16:19] LABS: Partial Thromboplastin Time 22.2 sec (22.0-30.0); Prothrombin Time 10.7 sec (9.0-12.0)
[2021-12-29] MEDS: SODIUM CHLORIDE 0.9% 500 ML 500 ML IV SCH ×2 (16:38→18:13)
[2021-12-29 16:48] LABS: Appearance,Urine Cloudy (Clear); Bilirubin,Urine 2+ (Negative); Blood,Urine Negative (Negative); Color,Urine Orange; Glucose,Urine (UA) Trace (Negative); Ketones,Urine Negative (Negative); Leukocyte Esterase,Urine Negative (Negative); Mucus,Urine Few /hpf; Nitrite,Urine Negative (Negative); PH, Urine 5.5 (5.0-8.0); Protein,Urine Trace (Negative); RBC,Urine 2 /hpf (0-5); Specific Gravity,Urine 1.023 (1.001-1.035); WBC,Urine 2 /hpf (0-5)
--- NOTE | 2021-12-29 17:35 | XR ---
EXAMINATION TYPE: XR chest 2V DATE OF EXAM: 12/29/2021 COMPARISON: 11/04/2016 HISTORY: Fever and weakness TECHNIQUE: 2 views FINDINGS: Heart is normal. Lungs are clear of consolidation. There are no hilar masses. Costophrenic angles are clear. There are chest leads. Bony thorax is intact. IMPRESSION: No active cardiopulmonary disease. No change.
--- NOTE | 2021-12-29 19:25 | US ---
EXAMINATION TYPE: US abdomen limited DATE OF EXAM: 12/29/2021 COMPARISON: NONE CLINICAL HISTORY: Liver and biliary system. h/o cholecystectomy, painless jaundice TECHNIQUE: Multiple sonographic images of the right upper quadrant are obtained. 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 MRCP exam might be useful for further evaluation if clinically indicated . No discrete liver mass.
[2021-12-29] MEDS ORDERED: CALCIUM CARBONATE 500 MG CHEWABLE PO PRN (20:09)
[2021-12-29] MEDS ORDERED: IBUPROFEN 400 MG TAB PO PRN (20:09)
[2021-12-29] MEDS ORDERED: NALOXONE 0.4 MG/ML 1 ML VIAL IV PRN (20:09)
[2021-12-29] MEDS ORDERED: ONDANSETRON 4 MG/2 ML VIAL IVP PRN (20:09)
[2021-12-29] MEDS ORDERED: MELATONIN 3 MG TABLET PO PRN (20:09)
[2021-12-29] MEDS ORDERED: PIPERACILLIN-TAZOBACTAM 3.375 GM in SODIUM CHLORIDE 0.9% 100 ML IVPB STA (20:20)
[2021-12-29] MEDS ORDERED: SODIUM CHLORIDE 0.9% 1,000 ML IV ONE (20:27)
[2021-12-29] MEDS: SODIUM CHLORIDE 0.9% 1,000 ML IV SCH (21:53)
[2021-12-29 22:28] LABS: Bilirubin, Conjugated 3.1 mg/dL (0.0-0.3); Bilirubin, Delta 2.2 mg/dL (0.0-0.2); Bilirubin,Unconjugated 1.4 mg/dL (0.0-1.1); C Reactive Protein 7.8 mg/dL (<1.0); Total Bilirubin 6.7 mg/dL (0.2-1.3)
--- NOTE | 2021-12-30 02:33 | P.HPIM ---
History of Present Illness H&P Date: 12/29/21 Chief Complaint: fatigue , change in mental status 81 year old male with no reported past medical history patient brought the patient for decrease PO intake over past 2 days, some increase confusion , and fatigue. today he was not acting himself, refusing PO intake and not even drinking his favorite morning coffee. patient himself has no complaints, denies fever, chills, chest pain , trouble breathing, URI symptoms , abd pain , nuasea or vomiting, diarrhea or GI bleeding workup in the ED showed significant jaundice. blood work showed elevated WBC, and elevated liver enzymes , elevated CRP imaging of the belly , showed surgically removed gall bladder , and dilated biliary tree. patient denies illicit drugs, blood transfusion , alcohol . CXR no acute pathology patient spiked a fever of 103 in the ED. Review of Systems Pertinent positives as noted in HPI. All other systems were reviewed and are ne gative Past Medical History Past Medical History: No Reported History Additional Past Medical History / Comment(s): Cataracts History of Any Multi-Drug Resistant Organisms: None Reported Past Surgical History: Cholecystectomy Past Anesthesia/Blood Transfusion Reactions: No Reported Reaction Past Psychological History: No Psychological Hx Reported Smoking Status: Never smoker Past Alcohol Use History: None Reported Past Drug Use History: None Reported - Past Family History Father Family Medical History: Pneumonia Additional Family Medical History / Comment(s): history of cancer in the family Mother Family Medical History: Unable to Obtain Medications and Allergies Home Medications Medication Instructions Recorded Confirmed Type Acetaminophen [Tylenol Arthritis] 650 mg PO Q8H PRN 12/29/21 12/29/21 History Allergies Allergy/AdvReac Type Severity Reaction Status Date / Time No Known Allergies Allergy Verified 12/29/21 17:34 Physical Exam Vitals: Vital Signs Temp Pulse Resp BP Pulse Ox 12/29/21 19:15 98.3 F 87 16 149/73 98 12/29/21 18:57 99.3 F 81 17 128/64 96 12/29/21 17:51 101.3 F H 101 H 17 121/77 96 12/29/21 17:15 103.1 F H 112 H 18 160/84 91 L 12/29/21 16:45 145 H 22 94 L 12/29/21 15:01 102.5 F H 94 18 125/91 94 L Intake and Output 12/29/21 12/29/21 12/29/21 06:59 14:59 22:59 Other: Weight 74.843 kg Constitutional: No acute distress, conversant, pleasant Eyes: scleral jaundice, moist conjunctiva, Pupils equal round reactive to light ENMT: NC/AT Oropharynx clear, no erythema, or exudates Neck: Supple, no masses, or JVD No carotid bruits No thyromegaly Lungs: Clear to auscultation Clear to percussion Normal respiratory effort, no accessory muscle use Cardiovascular: Heart regular in rate and rhythm, No murmurs, gallops, or rubs No peripheral edema Abdominal: Soft Nontender, no guarding, rebound or rigidity Abdomen moving with respiration Normoactive bowel sounds No hepatomegaly, No splenomegaly No palpable mass No abdominal wall hernia noted Skin: Normal temperature, tone, texture, turgor No induration No subcutaneous nodules No rash, lesions No ulcers Extremities: No digital cyanosis No clubbing Pedal pulses intact and symmetrical Radial pulses intact and symmetrical No calf tenderness Psychiatric: Alert and oriented to person, place Neuro Muscles Strength 4/5 in all 4 extremities Sensation to light touch grossly present throughout Cranial nerves II-XII grossly intact No focal sensory deficits Lymphatics: no palpable cervical or supraclavicular , or inguinal lymph nodes Results CBC & Chem 7: 12/29/21 15:31 12/29/21 15:33 Labs: Abnormal Lab Results - Last 24 Hours (Table) 12/29/21 12/29/21 12/29/21 Range/Units 15:31 15:33 16:00 WBC 11.7 H (3.8-10.6) k/uL Neutrophils # 10.3 H (1.3-7.7) k/uL Lymphocytes # 0.5 L (1.0-4.8) k/uL Sodium 132 L (137-145) mmol/L Carbon Dioxide 21 L (22-30) mmol/L Glucose 172 H (74-99) mg/dL Total Bilirubin 8.2 H (0.2-1.3) mg/dL AST 240 H (17-59) U/L ALT 168 H (4-49) U/L Alkaline Phosphatase 613 H (38-126) U/L Urine Protein Trace H (Negative) Urine Glucose (UA) Trace H (Negative) Urine Bilirubin 2+ H (Negative) Urine Mucus Few H (None) /hpf Assessment and Plan Assessment: suspected sepsis secondary to ascending cholangitis mild hyponatremia follow up culture abd US showed surgicall y removed GB, dilated biliary tree leukocytosis and fever, CXR no acute pathology UA no acute infection initiated on zosyn GI consultation due to elevated liver enzymes elevated CRP check hepatitis panel supportive care fall precautions IVF hydration with normal saline NPO DVT PPX heparin sc tid full code
[2021-12-30 06:41] LABS: Hepatitis A Antibody IgM Nonreactive (Nonreactive); Hepatitis B Core IgM Nonreactive (Nonreactive); Hepatitis B Surface Antigen Nonreactive (Nonreactive); Hepatitis C IgG Antibody Nonreactive (Nonreactive)
[2021-12-30] MEDS: SODIUM CHLORIDE 0.9% 1,000 ML IV SCH (08:43)
[2021-12-30] MEDS: HEPARIN SODIUM,PORCINE/PF 5,000 UNIT/0.5 ML SYRINGE SQ SCH ×3 (08:43→20:38)
[2021-12-30] MEDS: PIPERACILLIN-TAZOBACTAM 3.375 GM in SODIUM CHLORIDE 0.9% 100 ML IVPB SCH ×2 (08:55→20:35)
[2021-12-30 09:10] LABS: Basophils # (A) 0.03 X 10*3/uL (0.00-0.10); Basophils % (A) 0.3 %; Eosinophils # (A) 0.01 X 10*3/uL (0.04-0.35); Eosinophils % (A) 0.1 %; HCT 40.3 % (39.6-50.0); HGB 13.5 g/dL (13.0-17.0); Immature Grans, Automated 0.6 %; Lymphocytes # (A) 0.37 X 10*3/uL (0.90-5.00); Lymphocytes % (A) 3.7 %; MCH 31.6 pg (27.0-32.0); MCHC 33.5 g/dL (32.0-37.0); MCV 94.4 fL (80.0-97.0); Monocytes # (A) 0.88 X 10*3/uL (0.20-1.00); Monocytes % (A) 8.8 %; NRBC Per 100 WBC 0 /100 WBCS (0.0-0.0); Neutrophils # (A) 8.61 X 10*3/uL (1.80-7.70); Neutrophils % (A) 86.5 %; Platelet Count 141 X 10*3/uL (140-440); RBC 4.27 X 10*6/uL (4.40-5.60); WBC 9.96 X 10*3/uL (4.50-10.00)
[2021-12-30 09:36] LABS: African American GFR (CKD) 96.6 (60.0-200.0); Albumin 3.5 g/dL (3.8-4.9); Albumin/Globulin Ratio 1.26 (1.60-3.17); Anion Gap 10.2 mmol/L (10.00-18.00); BUN/Creat Ratio 22.51 Ratio (12.00-20.00); Blood Urea Nitrogen 17.6 mg/dL (9.0-27.0); Calcium 8.7 mg/dL (8.7-10.3); Carbon Dioxide 22.4 mmol/L (20.0-27.5); Globulin 2.8 g/dL (1.6-3.3); Non-African American GFR(CKD) 83.4 (60.0-200.0); Potassium 3.8 mmol/L (3.5-5.5); Total Bilirubin 5.9 mg/dL (0.30-1.20); Total Protein 6.3 g/dL (6.2-8.2)
[2021-12-31] MEDS: PIPERACILLIN-TAZOBACTAM 3.375 GM in SODIUM CHLORIDE 0.9% 100 ML IVPB SCH ×2 (01:32→08:41)
[2021-12-31] MEDS: HEPARIN SODIUM,PORCINE/PF 5,000 UNIT/0.5 ML SYRINGE SQ SCH ×4 (01:32→22:56)
[2021-12-31 10:46] LABS: Basophils # (A) 0.03 X 10*3/uL (0.00-0.10); Basophils % (A) 0.6 %; Eosinophils # (A) 0.09 X 10*3/uL (0.04-0.35); Eosinophils % (A) 1.7 %; HCT 39.2 % (39.6-50.0); Immature Grans, Automated 1.1 %; Lymphocytes % (A) 11.1 %; MCH 31.9 pg (27.0-32.0); MCHC 33.2 g/dL (32.0-37.0); MCV 96.3 fL (80.0-97.0); Mean Platelet Volume 11.2 fL (9.5-12.2); Monocytes # (A) 0.76 X 10*3/uL (0.20-1.00); NRBC Per 100 WBC 0 /100 WBCS (0.0-0.0); Neutrophils # (A) 3.88 X 10*3/uL (1.80-7.70); Neutrophils % (A) 71.5 %; Platelet Count 144 X 10*3/uL (140-440); RBC 4.07 X 10*6/uL (4.40-5.60); RDW 14.2 % (11.5-14.5); WBC 5.42 X 10*3/uL (4.50-10.00)
[2021-12-31 10:51] LABS: C Reactive Protein 10.7 mg/dL (0.00-0.80)
[2021-12-31 11:08] LABS: African American GFR (CKD) 92.1 (60.0-200.0); Albumin 3.1 g/dL (3.8-4.9); Albumin/Globulin Ratio 1.21 (1.60-3.17); Anion Gap 10.1 mmol/L (10.00-18.00); BUN/Creat Ratio 20.45 Ratio (12.00-20.00); Calcium 8.5 mg/dL (8.7-10.3); Globulin 2.6 g/dL (1.6-3.3); Non-African American GFR(CKD) 79.4 (60.0-200.0); Potassium 4.2 mmol/L (3.5-5.5); Total Bilirubin 5.2 mg/dL (0.30-1.20); Total Protein 5.7 g/dL (6.2-8.2)
--- NOTE | 2021-12-31 11:12 | P.CONS ---
History of Present Illness - Reason for Consult Consult date: 12/31/21 wound care - History of Present Illness This is an 81-year-old patient being seen on 4 S. for a nonhealing ulceration to the sacrum. Patient has a stage II pressure ulcer to the midline sacrum measuring approximately1 x 0.2 x 0.1 cm. Ulceration shows minimal slough and granulation throughout the wound bed. Wound edges are attached to the wound base. Periwound shows some redness and excoriation. Old scarring is noted. No tunneling or undermining noted. Review Of Systems: Constitutional: No fever, no chills, no night sweats. No weight change. No weakness, fatigue or lethargy. No daytime sleepiness. Integumentary:reports wounds, no lesions. No rash or pruritus. No unusual bruising. No change in hair or nails. Physical exam: General Appearance: Alert, cooperative, no distress, appears stated age. Skin: See HPI all other Skin color, texture, tugor normal, no rashes or lesions. Neurologic: Alert oriented x3 Assessment: 1. Stage II pressure ulcer sacrum Plan: 1. Apply triad and border foam to the site. Turn patient every 2 hours. Utilizing air-filled cushion when sitting. Thank you for the consultation any questions was contact the wound care center DNP note has been reviewed and discussed with Dr. Francis and the impression and plan of care has been directed as dictated. Past Medical History Past Medical History: No Reported History Additional Past Medical History / Comment(s): Cataracts History of Any Multi-Drug Resistant Organisms: None Reported Past Surgical History: Cholecystectomy Past Anesthesia/Blood Transfusion Reactions: No Reported Reaction Past Psychological History: No Psychological Hx Reported Smoking Status: Never smoker Past Alcohol Use History: None Reported Past Drug Use History: None Reported - Past Family History Father Family Medical History: Pneumonia Additional Family Medical History / Comment(s): history of cancer in the family Mother Family Medical History: Unable to Obtain Medications and Allergies Home Medications Medication Instructions Recorded Confirmed Type Acetaminophen [Tylenol Arthritis] 650 mg PO Q8H PRN 12/29/21 12/29/21 History Allergies Allergy/AdvReac Type Severity Reaction Status Date / Time No Known Allergies Allergy Verified 12/29/21 17:34 Physical Exam Vitals: Vital Signs Temp Pulse Pulse Resp BP Pulse Ox 12/31/21 07:06 98.4 F 69 17 133/69 94 L 12/31/21 01:53 98.8 F 74 17 145/67 97 12/30/21 19:05 98.9 F 82 20 180/76 96 Intake and Output 12/30/21 12/31/21 12/31/21 22:59 06:59 14:59 Intake Total 10 Balance 10 Intake: IV 10 Invasive Line 1 10 Other: Voiding Method Toilet Urinal # Voids 1 1 # Bowel Movements 1 Results CBC & Chem 7: 12/31/21 06:38 12/31/21 06:38 Labs: Abnormal Lab Results - Last 24 Hours (Table) 12/31/21 12/31/21 Range/Units 06:38 06:38 RBC 4.07 L (4.40-5.60) X 10*6/uL Hct 39.2 L (39.6-50.0) % Immature Gran # 0.06 H (0.00-0.04) X 10*3/uL Lymphocytes # 0.60 L (0.90-5.00) X 10*3/uL BUN/Creatinine Ratio 20.45 H (12.00-20.00) Ratio Calcium 8.5 L (8.7-10.3) mg/dL Total Bilirubin 5.20 H (0.30-1.20) mg/dL AST 195 H (14-35) U/L ALT 149 H (10-49) U/L Alkaline Phosphatase 496 H (41-126) U/L C-Reactive Protein 10.70 H (0.00-0.80) mg/dL Total Protein 5.7 L (6.2-8.2) g/dL Albumin 3.1 L (3.8-4.9) g/dL Albumin/Globulin Ratio 1.21 L (1.60-3.17) g/dL Microbiology - Last 24 Hours (Table) 12/29/21 16:01 Blood Culture Gram Stain - Preliminary Blood Blood Culture - Preliminary Klebsiella pneumoniae 12/29/21 15:44 Blood Culture Gram Stain - Preliminary Blood 12/29/21 15:44 Blood Culture - Final Blood Assessment and Plan (1) Stage II pressure ulcer of sacral region Current Visit: Yes Status: Acute Code(s): L89.152 - PRESSURE ULCER OF SACRAL REGION, STAGE 2 SNOMED Code(s): [id number]
[2021-12-31 13:34] VITALS: BMI 25.8
--- NOTE | 2021-12-31 14:17 | P.CONS ---
History of Present Illness - Reason for Consult Consult date: 12/30/21 - History of Present Illness Patient is a 81-year-old female with a past medical history significant for cholecystitis at this point s/p cholecystectomy few years ago patient presented to hospital yesterday afternoon for evaluation of weakness that has been progressively getting worse patient been becoming more fatigue and did not want to eat or get out of bed patient denies having any headache no URI symptoms no chest pain shortness of breath or cough no abdominal pain no diarrhea on presentation to the hospital the patient did have a fever of 102.5 F patient did have vital up 11.7 with a left shift creatinine was normal. Have elevated liver enzymes urine has been negative hepatitis panel is negative p atient did have a chest x-ray no active cardiopulmonary disease abdominal ultrasound mildly dilated biliary tree MRCP may be useful, patient did have blood culture drawn which can be positive gram-negative bacilli patient is currently being treated with the [facility] infectious disease was consulted for further management of antibiotic therapy Past Medical History Past Medical History: No Reported History Additional Past Medical History / Comment(s): Cataracts History of Any Multi-Drug Resistant Organisms: None Reported Past Surgical History: Cholecystectomy Past Anesthesia/Blood Transfusion Reactions: No Reported Reaction Past Psychological History: No Psychological Hx Reported Smoking Status: Never smoker Past Alcohol Use History: None Reported Past Drug Use History: None Reported - Past Family History Father Family Medical History: Pneumonia Additional Family Medical History / Comment(s): history of cancer in the family Mother Family Medical History: Unable to Obtain Medications and Allergies Home Medications Medication Instructions Recorded Confirmed Type Acetaminophen [Tylenol Arthritis] 650 mg PO Q8H PRN 12/29/21 12/29/21 History Allergies Allergy/AdvReac Type Severity Reaction Status Date / Time No Known Allergies Allergy Verified 12/29/21 17:34 Physical Exam Vitals: Vital Signs Temp Pulse Pulse Resp BP BP Pulse Ox 12/30/21 19:05 98.9 F 82 20 180/76 96 12/30/21 06:58 97.8 F 77 18 127/92 98 12/30/21 04:44 90 16 132/68 95 Results CBC & Chem 7: 12/31/21 06:38 12/31/21 06:38 Labs: Abnormal Lab Results - Last 24 Hours (Table) 09/05/22 09/06/22 09/06/22 Range/Units 22:05 05:06 05:06 RBC 4.27 L (4.40-5.60) X 10*6/uL Immature Gran # 0.06 H (0.00-0.04) X 10*3/uL Neutrophils # 8.61 H (1.80-7.70) X 10*3/uL Lymphocytes # 0.37 L (0.90-5.00) X 10*3/uL Eosinophils # 0.01 L (0.04-0.35) X 10*3/uL BUN/Creatinine Ratio 22.51 H (12.00-20.00) Ratio Glucose 141 H (70-110) mg/dL Total Bilirubin 6.7 H 5.90 H (0.2-1.3) mg/dL Conjugated Bilirubin 3.1 H (0.0-0.3) mg/dL Unconjugated Bilirubin 1.4 H (0.0-1.1) mg/dL Delta Bilirubin 2.2 H (0.0-0.2) mg/dL AST 192 H (14-35) U/L ALT 161 H (10-49) U/L Alkaline Phosphatase 540 H (41-126) U/L C-Reactive Protein 7.8 H (<1.0) mg/dL Albumin 3.5 L (3.8-4.9) g/dL Albumin/Globulin Ratio 1.26 L (1.60-3.17) g/dL Microbiology - Last 24 Hours (Table) 12/29/21 16:01 Blood Culture Gram Stain - Preliminary Blood Blood Culture - Preliminary Klebsiella pneumoniae 12/29/21 15:44 Blood Culture Gram Stain - Preliminary Blood 12/29/21 15:44 Blood Culture - Final Blood 12/29/21 16:01 Blood Culture - Final Blood Assessment and Plan Plan: 1patient presented to hospital with sepsis versus likely cholangitis in this patient did have an elevated liver enzymes and some dilatation of the biliary tree patient to have a history of cholecystectomy in the past, patient would benefit from ERCP unfortunately GI services not available at this hospital at this moment and the patient is refusing to be transferred. 2we will order MRCP for better visualization of underlying biliary tree. 3blood cultures will be to document clearance of bacteremia. 4continue with Zosyn while waiting for the culture to finalize. We will follow on clinical condition and cultures to further adjust medication if needed Thank you for this consultation will follow this patient along with you Time with Patient: Greater than 30
--- NOTE | 2021-12-31 14:21 | P.PN ---
Subjective Progress Note Date: 12/31/21 Principal diagnosis: Bacteremia Patient is a 81-year-old male with a past medical he significant for consequently presented to hospital with weakness lethargy patient was noticed to be febrile and did have elevated liver enzymes subsequent blood cultures positive with Klebsiella. On today's evaluation that is 12/31/2021, patient denies having any fever or any chills, the patient is feeling slightly better breathing comfortably no chest pain shortness of the cough no nausea vomiting no abdominal pain or diarrhea Objective - Vital Signs Vital signs: Vital Signs Temp 98.4 F 12/31/21 07:06 Pulse 69 12/31/21 07:06 Resp 17 12/31/21 08:00 BP 133/69 12/31/21 07:06 Pulse Ox 94 L 12/31/21 07:06 FiO2 Intake & Output 12/30/21 12/31/21 12/31/21 18:59 06:59 18:59 Intake Total 10 Balance 10 Weight 74.843 kg Intake: IV 10 Invasive Line 1 10 Other: Voiding Method Toilet Toilet Urinal Urinal # Voids 1 1 # Bowel Movements 1 - Exam GENERAL DESCRIPTION: Elderly male lying in bed, no distress. No tachypnea or accessory muscle of respiration use. LUNGS: Unlabored breathing. Clear to auscultation anteriorly. No wheeze or crackle. HEART: S1, S2, regular rate and rhythm. No loud murmur ABDOMEN: Soft, no tenderness , guarding or rigidity, no organomegaly EXTREMITIES: No edema of feet. - Labs CBC & Chem 7: 12/31/21 06:38 12/31/21 06:38 Labs: Abnormal Lab Results - Last 24 Hours (Table) 12/31/21 12/31/21 Range/Units 06:38 06:38 RBC 4.07 L (4.40-5.60) X 10*6/uL Hct 39.2 L (39.6-50.0) % Immature Gran # 0.06 H (0.00-0.04) X 10*3/uL Lymphocytes # 0.60 L (0.90-5.00) X 10*3/uL BUN/Creatinine Ratio 20.45 H (12.00-20.00) Ratio Calcium 8.5 L (8.7-10.3) mg/dL Total Bilirubin 5.20 H (0.30-1.20) mg/dL AST 195 H (14-35) U/L ALT 149 H (10-49) U/L Alkaline Phosphatase 496 H (41-126) U/L C-Reactive Protein 10.70 H (0.00-0.80) mg/dL Total Protein 5.7 L (6.2-8.2) g/dL Albumin 3.1 L (3.8-4.9) g/dL Albumin/Globulin Ratio 1.21 L (1.60-3.17) g/dL Microbiology - Last 24 Hours (Table) 12/29/21 15:44 Blood Culture Gram Stain - Preliminary Blood Blood Culture - Preliminary Gram Neg Bacilli 12/29/21 16:01 Blood Culture Gram Stain - Preliminary Blood Blood Culture - Preliminary Klebsiella pneumoniae Assessment and Plan (1) Bacteremia Current Visit: Yes Status: Acute Code(s): R78.81 - BACTEREMIA SNOMED Code(s): 3634294 (2) Sepsis Current Visit: No Status: Acute Code(s): A41.9 - SEPSIS, UNSPECIFIED ORGANISM SNOMED Code(s): 47265085 Plan: 1patient presented to hospital with sepsis versus likely cholangitis in this patient did have an elevated liver enzymes and some dilatation of the biliary tree patient to have a history of cholecystectomy in the past, patient would benefit from ERCP unfortunately GI services not available at this hospital at this moment and the patient is refusing to be transferred. 2Awaiting MRCP for better visualization of underlying biliary tree. 3blood cultures has been repeated to document clearance of bacteremia. 4Patient antibiotic will be switched over to Rocephin 2 g daily and seems to be a sensitive pathogen and monitor clinical course closely Time with Patient: Less than 30
[2021-12-31] MEDS: HYDROPHILIC CREAM 180 GM TUBE TOPICAL SCH (15:41)
[2022-01-01 02:21] VITALS: RESP 18
[2022-01-01] MEDS: HYDROPHILIC CREAM 180 GM TUBE TOPICAL SCH (08:00)
[2022-01-01] MEDS: HEPARIN SODIUM,PORCINE/PF 5,000 UNIT/0.5 ML SYRINGE SQ SCH ×2 (08:00→15:18)
[2022-01-01 10:59] LABS: ALT 145 U/L (4-49); AST 204 U/L (17-59); African American GFR (CKD) >90 (>60 ml/min/1.73 sqM); Alkaline Phosphatase 536 U/L (38-126); Anion Gap 9 mmol/L; Blood Urea Nitrogen 13 mg/dL (9-20); Calcium 8.1 mg/dL (8.4-10.2); Carbon Dioxide 23 mmol/L (22-30); Chloride 107 mmol/L (98-107); Glucose 90 mg/dL (74-99); Lipase 66 U/L (23-300); Magnesium 1.9 mg/dL (1.6-2.3); Non-African American GFR(CKD) 89 (>60 ml/min/1.73 sqM); Sodium 139 mmol/L (137-145)
[2022-01-01 11:17] LABS: Basophils % (A) 1 %; Eosinophils # (A) 0.1 k/uL (0-0.7); Eosinophils % (A) 3 %; HCT 42.3 % (39.0-53.0); HGB 13.3 gm/dL (13.0-17.5); Lymphocytes % (A) 20 %; MCHC 31.4 g/dL (31.0-37.0); MCV 98.9 fL (80.0-100.0); Mean Platelet Volume 8.6; Monocytes # (A) 0.5 k/uL (0-1.0); Monocytes % (A) 11 %; Neutrophils % (A) 63 %; Platelet Count 147 k/uL (150-450); RBC 4.28 m/uL (4.30-5.90); RDW 13.3 % (11.5-15.5); WBC 4.9 k/uL (3.8-10.6)
[2022-01-01 14:29] VITALS: BP 182/70; PULSE 67; TEMP 97.6
--- NOTE | 2022-01-01 18:10 | P.PN ---
Subjective Progress Note Date: 12/31/21 Principal diagnosis: confusion Doing the same. Still with confusion and jaundice. No pain. No sob. Objective - Vital Signs Vital signs: Vital Signs Temp 97.6 F 01/01/22 14:00 Pulse 67 01/01/22 14:00 Resp 18 01/01/22 14:00 BP 182/70 01/01/22 14:00 Pulse Ox 99 01/01/22 14:00 FiO2 Intake & Output 12/31/21 01/01/22 01/01/22 18:59 06:59 18:59 Weight 74.843 kg Other: Voiding Method Toilet Toilet Urinal Urinal # Voids 3 1 1 # Bowel Movements 1 - Exam Constitutional: No acute distress, conversant, pleasant. +jaundice Eyes:Anicteric sclerae, moist conjunctiva, no lid-lag, PERRLA, ENMT: Oropharynx clear, no erythema, exudates Neck: Supple, FROM, no masses, or JVD, No carotid bruits, No thyromegaly Lungs: Clear to auscultation, Clear to percussion, Normal respiratory effort, no accessory muscle use Cardiovascular: Heart regular in rate and rhythm, No murmurs, gallops, or rubs, No peripheral edema Abdominal: Soft, Nontender, no guarding, rebound or rigidity, Normoactive bowel sounds, No hepatomegaly, No splenomegaly, No palpable mass Skin: Normal temperature, tone, texture, turgor, no induration, No subcutaneous nodules, No rash, lesions, No ulcers Extremities: No digital cyanosis, No clubbing, Pedal pulses intact and symmetrical, Radial pulses intact and symmetrical, No calf tenderness Psychiatric: Alert and oriented to person, place and time, appropriate affect, intact judgement Neuro: Muscles Strength 5/5 in all 4 extremities, Sensation to light touch grossly present throughout, Cranial nerves II-XII grossly intact, no focal sensory deficits - Labs CBC & Chem 7: 01/01/22 10:14 01/01/22 10:14 Labs: Abnormal Lab Results - Last 24 Hours (Table) 01/01/22 01/01/22 Range/Units 10:14 10:14 RBC 4.28 L (4.30-5.90) m/uL Plt Count 147 L (150-450) k/uL Calcium 8.1 L (8.4-10.2) mg/dL Total Bilirubin 4.0 H (0.2-1.3) mg/dL AST 204 H (17-59) U/L ALT 145 H (4-49) U/L Alkaline Phosphatase 536 H (38-126) U/L Total Protein 6.0 L (6.3-8.2) g/dL Albumin 3.0 L (3.5-5.0) g/dL Microbiology - Last 24 Hours (Table) 12/29/21 15:44 Blood Culture Gram Stain - Preliminary Blood Blood Culture - Preliminary Klebsiella pneumoniae 12/30/21 20:00 Blood Culture - Preliminary Blood No Growth after 24 hours 12/30/21 20:05 Blood Culture - Preliminary Blood No Growth after 24 hours Assessment and Plan Plan: Sepsis secondary to ascending cholangitis mild hyponatremia follow up culture abd US showed surgicall y removed GB, dilated biliary tree leukocytosis and fever, CXR no acute pathology UA no acute infection initiated on zosyn elevated CRP check hepatitis panel supportive care fall precautions IVF hydration with normal saline NPO DVT PPX heparin sc tid full code
--- NOTE | 2022-01-01 18:13 | P.PN ---
Subjective Progress Note Date: 01/01/22 Principal diagnosis: confusion Patient still with jaundice. Mental status better. Denied any chest pain or sob. No nausea or vomiting. Objective - Vital Signs Vital signs: Vital Signs Temp 97.6 F 01/01/22 14:00 Pulse 67 01/01/22 14:00 Resp 18 01/01/22 14:00 BP 182/70 01/01/22 14:00 Pulse Ox 99 01/01/22 14:00 FiO2 Intake & Output 12/31/21 01/01/22 01/01/22 18:59 06:59 18:59 Weight 74.843 kg Other: Voiding Method Toilet Toilet Urinal Urinal # Voids 3 1 1 # Bowel Movements 1 - Exam Constitutional: No acute distress, conversant, pleasant. +jaundice Eyes:Anicteric sclerae, moist conjunctiva, no lid-lag, PERRLA, ENMT: Oropharynx clear, no erythema, exudates Neck: Supple, FROM, no masses, or JVD, No carotid bruits, No thyromegaly Lungs: Clear to auscultation, Clear to percussion, Normal respiratory effort, no accessory muscle use Cardiovascular: Heart regular in rate and rhythm, No murmurs, gallops, or rubs, No peripheral edema Abdominal: Soft, Nontender, no guarding, rebound or rigidity, Normoactive bowel sounds, No hepatomegaly, No splenomegaly, No palpable mass Skin: Normal temperature, tone, texture, turgor, no induration, No subcutaneous nodules, No rash, lesions, No ulcers Extremities: No digital cyanosis, No clubbing, Pedal pulses intact and symmetrical, Radial pulses intact and symmetrical, No calf tenderness Psychiatric: Alert and oriented to person, place and time, appropriate affect, intact judgement Neuro: Muscles Strength 5/5 in all 4 extremities, Sensation to light touch grossly present throughout, Cranial nerves II-XII grossly intact, no focal sensory deficits - Labs CBC & Chem 7: 01/01/22 10:14 01/01/22 10:14 Labs: Abnormal Lab Results - Last 24 Hours (Table) 01/01/22 01/01/22 Range/Units 10:14 10:14 RBC 4.28 L (4.30-5.90) m/uL Plt Count 147 L (150-450) k/uL Calcium 8.1 L (8.4-10.2) mg/dL Total Bilirubin 4.0 H (0.2-1.3) mg/dL AST 204 H (17-59) U/L ALT 145 H (4-49) U/L Alkaline Phosphatase 536 H (38-126) U/L Total Protein 6.0 L (6.3-8.2) g/dL Albumin 3.0 L (3.5-5.0) g/dL Microbiology - Last 24 Hours (Table) 12/29/21 15:44 Blood Culture Gram Stain - Preliminary Blood Blood Culture - Preliminary Klebsiella pneumoniae 12/30/21 20:00 Blood Culture - Preliminary Blood No Growth after 24 hours 12/30/21 20:05 Blood Culture - Preliminary Blood No Growth after 24 hours Assessment and Plan Plan: Sepsis secondary to ascending cholangitis Jaundice, obstructive Transaminitis Metabolic encephalopathy. mild hyponatremia Blood culture showing klebsiella abd US showed surgicall y removed GB, dilated biliary tree MRCP showed stones in the bile ducts with CBD dilation up to 1.6cm. D/w radiology. Continue ceftriaxone, ID following. IVF hydration with normal saline NPO DVT PPX heparin sc tid full code [facility] tx [facility] to [facility] to do ERCP
--- NOTE | 2022-01-01 18:15 | P.PN ---
Subjective Progress Note Date: 01/01/22 Principal diagnosis: Bacteremia Patient is a 81-year-old male with a past medical he significant for consequently presented to hospital with weakness lethargy patient was noticed to be febrile and did have elevated liver enzymes subsequent blood cultures positive with Klebsiella. On today's evaluation that is 01/01/2022, The patient remains to be afebrile, the patient is breathing comfortably, patient denies having any chest pain or shortness of breath or cough no nausea no vomiting no abdominal pain or any diarrhea Objective - Vital Signs Vital signs: Vital Signs Temp 98.3 F 01/01/22 07:54 Pulse 68 01/01/22 07:54 Resp 18 01/01/22 07:54 BP 156/81 01/01/22 07:54 Pulse Ox 96 01/01/22 07:54 FiO2 Intake & Output 12/31/21 01/01/22 01/01/22 18:59 06:59 18:59 Weight 74.843 kg Other: Voiding Method Toilet Toilet Urinal Urinal # Voids 3 1 1 # Bowel Movements 1 - Exam GENERAL DESCRIPTION: Elderly male lying in bed, no distress. No tachypnea or accessory muscle of respiration use. LUNGS: Unlabored breathing. Clear to auscultation anteriorly. No wheeze or crackle. HEART: S1, S2, regular rate and rhythm. No loud murmur ABDOMEN: Soft, no tenderness , guarding or rigidity, no organomegaly EXTREMITIES: No edema of feet. - Labs CBC & Chem 7: 01/01/22 10:14 01/01/22 10:14 Labs: Abnormal Lab Results - Last 24 Hours (Table) 12/31/21 12/31/21 Range/Units 06:38 06:38 RBC 4.07 L (4.40-5.60) X 10*6/uL Hct 39.2 L (39.6-50.0) % Immature Gran # 0.06 H (0.00-0.04) X 10*3/uL Lymphocytes # 0.60 L (0.90-5.00) X 10*3/uL BUN/Creatinine Ratio 20.45 H (12.00-20.00) Ratio Calcium 8.5 L (8.7-10.3) mg/dL Total Bilirubin 5.20 H (0.30-1.20) mg/dL AST 195 H (14-35) U/L ALT 149 H (10-49) U/L Alkaline Phosphatase 496 H (41-126) U/L C-Reactive Protein 10.70 H (0.00-0.80) mg/dL Total Protein 5.7 L (6.2-8.2) g/dL Albumin 3.1 L (3.8-4.9) g/dL Albumin/Globulin Ratio 1.21 L (1.60-3.17) g/dL Microbiology - Last 24 Hours (Table) 12/29/21 15:44 Blood Culture Gram Stain - Preliminary Blood Blood Culture - Preliminary Klebsiella pneumoniae 12/30/21 20:00 Blood Culture - Preliminary Blood No Growth after 24 hours 12/30/21 20:05 Blood Culture - Preliminary Blood No Growth after 24 hours 12/29/21 16:01 Blood Culture Gram Stain - Preliminary Blood Blood Culture - Preliminary Klebsiella pneumoniae Assessment and Plan (1) Bacteremia Current Visit: Yes Status: Acute Code(s): R78.81 - BACTEREMIA SNOMED Code(s): 7581654 (2) Sepsis Current Visit: No Status: Acute Code(s): A41.9 - SEPSIS, UNSPECIFIED ORGANISM SNOMED Code(s): 54289785 Plan: 1patient presented to hospital with sepsis versus likely cholangitis in this patient did have an elevated liver enzymes and some dilatation of the biliary tree patient to have a history of cholecystectomy in the past, patient would benefit from ERCP unfortunately GI services not available at this hospital at this moment and the patient is refusing to be transferred. 2MRCP did shows stones in the CBD with the bile duct dilatation of 1.6 cm patient apparently is in the process of getting transferred to [facility] for GI service and ERCP, patient will continue with Rocephin 2 g daily at the bedside multiple questions those were answeredy Time with Patient: Less than 30
--- NOTE | 2022-01-01 18:52 | P.DS ---
Providers Date of admission: 12/29/21 20:18 Expected date of discharge: 01/01/22 Attending physician: Vanessa Balderrama MD Consults: 12/29/21 20:10 Consult Physician Routine Consulting Provider: Elise Barrett Consult Reason/Comments: cholangitis Do you want consulting provider notified?: Yes, Notify in am 12/30/21 21:44 Consult Physician Routine Consulting Provider: Corina Bobby Consult Reason/Comments: elevated WBC, fever Do you want consulting provider notified?: Already Contacted Primary care physician: Stated None Hospital Course: 81-year-old female with a past medical history significant for cholecystitis s/p cholecystectomy few years ago presented to hospital for evaluation of weakness and increasing confusion. Symptoms associated with decreased appetite, not eating and drinking. No headache, no URI symptoms, no chest pain or shortness of breath, no cough, abdominal pain or diarrhea. On presentation to the hospital the patient did have a fever of 102.5 F, WBC 11.7 with a left shift, creatinine was normal. Also had elevated liver enzymes in the 100-200 range. Alkaline phosphatase was 615. Patient was admitted, biliary sepsis was suspected. U/s of the liver showed dilated bile duct with possible ductal stones. He was started on zosyn. Blood cultures were sent and they grew klebsiella. ID consulted. Abx deescalated to ceftriaxone. Pateint had an MRCP that showed 1.6 CBD dilation. 1 cm stone was seen. There is no GI coverage here for the week. Therefore patient was transferred to [facility] for ERCP. Case d/w hospitalist who accepted patient. Time for discharge 35 min. Plan - Discharge Summary Discharge Rx Participant: No New Discharge Prescriptions: No Action Acetaminophen [Tylenol Arthritis] 650 mg PO Q8H PRN PRN Reason: Pain Or Fever > 100.5 Discharge Medication List Acetaminophen [Tylenol Arthritis] 650 mg PO Q8H PRN 12/29/21 [History] Follow up Appointment(s)/Referral(s): None,Stated [Primary Care Provider] - 1-2 days
--- NOTE | 2022-01-02 09:39 | MR ---
EXAMINATION TYPE: MR MRCP DATE OF EXAM: 12/31/2021 COMPARISON: Ultrasound abdomen limited 2 days ago. HISTORY: Obstructive jaundice Standard multiplanar, multisequence MRI departmental protocol Multiplanar, multisequence images of the abdomen were acquired without contrast. Diffusion weighted i maging was performed. Thin and thick slice MRCP imaging performed on independent workstation. FINDINGS: Exam is suboptimal as patient unable to hold breath. Liver/gallbladder/pancreas/biliary system: Liver is normal in size without concerning solid or cystic mass. Trace adjacent fluid lateral aspect and near the ovi hepatis. There is mild to moderate cent ral intrahepatic and extrahepatic biliary dilatation up to 16 mm in level of the ovi hepatis. Gallb ladder noted surgically absent. Distal common bile duct shows small intraluminal gallstones with more heterogeneous low signal distally suggesting larger stones. Cannot exclude soft tissue mass near the ampulla. The adjacent pancreatic duct is identified and measures 3 to 4 mm which is upper limits of normal to mildly dilated but better seen to the ampulla coronal image 20 for reference. Pancreas othe rwise is normal in size without solid or cystic mass. Other: Lung bases are clear. Spleen and both adrenal glands appear within normal limits. No solid or cystic renal mass or hydronephrosis. No bowel dilatation. Diverticula scattered throughout the visual ized colon. Multilevel spurring in the thoracolumbar spine. Spinal canal effacement or stenosis L4-L5 level is appreciated IMPRESSION: Mild to moderate intrahepatic and extra hepatic biliary dilatation with at least small stones and/or gallbladder sludge in the distal common bile duct. Cannot exclude ampullary mass or neoplasm. Further investigation with ERCP is advised. Preliminary report provided by on site radiologist.
== END 2022-01-01 19:29 | disposition short-term general hospital (02) | DRG 871 ==
LOC: EC 14:48 → 4SSUR 20:18
PROVIDERS: ADMIT Internal Medicine; ATTEND Internal Medicine
DX: A41.59 Other Gram-negative sepsis (principal); G93.41 Metabolic encephalopathy; K83.1 Obstruction of bile duct; K83.09 Other cholangitis; E87.1 Hypo-osmolality and hyponatremia; L89.152 Pressure ulcer of sacral region, stage 2; R74.01 Elevation of levels of liver transaminase levels; H26.9 Unspecified cataract; Z90.49 Acquired absence of other specified parts of digestive tract
CPT/HCPCS: 36415; 71046; 74181; 76705; 80053; 80074; 80143; 81001; 82140; 82248; 83605; 83690; 83735; 85025; 85610; 85730; 86140; 87040; 87077; 87186; 93005; 96361; 96365; 96366; 96367; 96368; 96372; 99285

== ENCOUNTER → 2022-01-06 | Outpatient (CLI) | payer MEDICARE ==
[2022-01-06 19:14] LABS: Bilirubin, Conjugated 1.23 mg/dL (0.20-0.40); Bilirubin,Unconjugated 0.88 mg/dL (0.20-1.00); Total Bilirubin 2.1 mg/dL (0.30-1.20)
== END | disposition home or self-care (01) ==
LOC: LABWHC1 12:47
PROVIDERS: ATTEND Internal Medicine Gastroenterology
DX: R17 Unspecified jaundice (principal)
CPT/HCPCS: 36415; 82248; 84450; 84460

== ENCOUNTER 2022-02-11 07:46 | Emergency (ER) | payer MEDICARE ==
[2022-02-11 07:54] VITALS: TEMP 97.8
[2022-02-11] MEDS ORDERED: traMADol 50 MG TAB PO STA ×2 (08:16→10:29)
[2022-02-11] MEDS ORDERED: KETOROLAC 15 MG/ML 1 ML VIAL IVP STA (08:16)
[2022-02-11] MEDS ORDERED: SODIUM CHLORIDE 0.9% 500 ML 500 ML IV ONE (08:17)
--- NOTE | 2022-02-11 08:42 | ED ---
General Adult HPI - General Chief complaint: Extremity Problem,Nontraumatic Stated complaint: leg pain Time Seen by Provider: 02/11/22 07:55 Source: patient, RN notes reviewed Mode of arrival: wheelchair Limitations: no limitations - History of Present Illness Initial comments: 82-year-old male presents emergency Department chief complaint of left leg pain. Patient states been having increasing severe pain. Patient does admit that he had a recent hospitalization for almost 10 days for biliary obstruction. Patient had stent placed at its [facility] has been referred to GI physician at [facility] secondary to mass finding during ERCP. Patient has recently developed left low back left hip and pain down his left leg. He has severe pain at the head of fifth metatarsal patient denies any trauma. Patient denies any chest pain or shortness of breath. Denies any change in abdominal pain. Patient states she just very uncomfortable with his leg pain.. - Related Data Home Medications Medication Instructions Recorded Confirmed Acetaminophen [Tylenol Arthritis] 650 mg PO Q8H PRN 12/29/21 12/29/21 Previous Rx's Medication Instructions Recorded HYDROcodone/APAP 5-325MG [Sherburn 5] See Rx Instructions .ROUTE 02/11/22 .COMPLEX PRN #12 tab Ibuprofen [Motrin] 600 mg PO Q8HR PRN #20 tab 02/11/22 predniSONE 50 mg PO DAILY #5 tab 02/11/22 Allergies Allergy/AdvReac Type Severity Reaction Status Date / Time No Known Allergies Allergy Verified 02/11/22 07:54 Review of Systems ROS Statement: Those systems with pertinent positive or pertinent negative responses have been documented in the HPI. ROS Other: All systems not noted in ROS Statement are negative. Past Medical History Past Medical History: No Reported History Additional Past Medical History / Comment(s): Cataracts History of Any Multi-Drug Resistant Organisms: None Reported Past Surgical History: Cholecystectomy Additional Past Surgical History / Comment(s): stent in bile duct Past Anesthesia/Blood Transfusion Reactions: No Reported Reaction Past Psychological History: No Psychological Hx Reported Smoking Status: Never smoker Past Alcohol Use History: None Reported Past Drug Use History: None Reported - Past Family History Father Family Medical History: Pneumonia Additional Family Medical History / Comment(s): history of cancer in the family Mother Family Medical History: Unable to Obtain General Exam Limitations: no limitations General appearance: alert, in no apparent distress Head exam: Present: atraumatic, normocephalic, normal inspection Eye exam: Present: normal appearance, PERRL, EOMI. Absent: scleral icterus, conjunctival injection, periorbital swelling ENT exam: Present: normal exam, mucous membranes moist Respiratory exam: Present: normal lung sounds bilaterally. Absent: respiratory distress, wheezes, rales, rhonchi, stridor Cardiovascular Exam: Present: regular rate, normal rhythm, normal heart sounds. Absent: systolic murmur, diastolic murmur, rubs, gallop, clicks GI/Abdominal exam: Present: soft, normal bowel sounds. Absent: distended, tenderness, guarding, rebound, rigid Extremities exam: Present: other (Tenderness to left hip, left fifth metatarsal region, neurovascular intact no Tenderness full range of motion.) Back exam: Present: full ROM, tenderness, paraspinal tenderness. Absent: vertebral tenderness Neurological exam: Present: alert, reflexes normal. Absent: motor sensory deficit Skin exam: Present: warm, dry, intact, normal color. Absent: rash Course Vital Signs 02/11/22 02/11/22 07:49 10:15 Temperature 97.8 F Pulse Rate 83 72 Respiratory 16 18 Rate Blood Pressure 201/87 181/97 O2 Sat by Pulse 98 96 Oximetry Medical Decision Making - Medical Decision Making 82-year-old presented from for left leg pain. Patient has radicular pain with no red flag symptoms. Patient's pain is reproducible x-ray shows severe degener ative changes of the lumbar, left hip. Patient labwork is unremarkable. Patient will be discharged in stable condition return parameters were discussed. - Lab Data Result diagrams: 02/11/22 08:25 02/11/22 08:25 Lab Results 02/11/22 02/11/22 Range/Units 08:25 08:25 WBC 8.1 (3.8-10.6) k/uL RBC 4.74 (4.30-5.90) m/uL Hgb 15.3 (13.0-17.5) gm/dL Hct 43.0 (39.0-53.0) % MCV 90.8 D (80.0-100.0) fL MCH 32.4 (25.0-35.0) pg MCHC 35.7 (31.0-37.0) g/dL RDW 12.9 (11.5-15.5) % Plt Count 139 L (150-450) k/uL MPV 7.9 Neutrophils % 75 % Lymphocytes % 13 % Monocytes % 5 % Eosinophils % 4 % Basophils % 1 % Neutrophils # 6.1 (1.3-7.7) k/uL Lymphocytes # 1.1 (1.0-4.8) k/uL Monocytes # 0.4 (0-1.0) k/uL Eosinophils # 0.3 (0-0.7) k/uL Basophils # 0.1 (0-0.2) k/uL Sodium 139 (137-145) mmol/L Potassium 4.0 (3.5-5.1) mmol/L Chloride 105 (98-107) mmol/L Carbon Dioxide 21 L (22-30) mmol/L Anion Gap 13 mmol/L BUN 15 (9-20) mg/dL Creatinine 0.69 (0.66-1.25) mg/dL Est GFR (CKD-EPI)AfAm >90 (>60 ml/min/1.73 sqM) Est GFR (CKD-EPI)NonAf 87 (>60 ml/min/1.73 sqM) Glucose 129 H (74-99) mg/dL Calcium 9.3 (8.4-10.2) mg/dL Total Bilirubin 1.3 (0.2-1.3) mg/dL AST 37 (17-59) U/L ALT 26 (4-49) U/L Alkaline Phosphatase 96 (38-126) U/L Total Protein 7.6 (6.3-8.2) g/dL Albumin 4.3 (3.5-5.0) g/dL Disposition Clinical Impression: Lumbar radiculopathy, acute, Left leg pain Disposition: HOME SELF-CARE Condition: Stable Instructions (If sedation given, give patient instructions): Lumbar Radiculopathy (ED) Additional Instructions: Please return to the Emergency Department if symptoms worsen or any other concerns. Prescriptions: Ibuprofen [Motrin] 600 mg PO Q8HR PRN #20 tab PRN Reason: Pain HYDROcodone/APAP 5-325MG [Sherburn 5] See Rx Instructions .ROUTE .COMPLEX PRN #12 tab PRN Reason: Pain predniSONE 50 mg PO DAILY #5 tab Is patient prescribed a controlled substance at d/c from ED?: No Referrals: None,Stated [Primary Care Provider] - 1-2 days Time of Disposition: 10:33
[2022-02-11 08:50] LABS: ALT 26 U/L (4-49); AST 37 U/L (17-59); African American GFR (CKD) >90 (>60 ml/min/1.73 sqM); Albumin 4.3 g/dL (3.5-5.0); Alkaline Phosphatase 96 U/L (38-126); Anion Gap 13 mmol/L; Blood Urea Nitrogen 15 mg/dL (9-20); Calcium 9.3 mg/dL (8.4-10.2); Carbon Dioxide 21 mmol/L (22-30); Chloride 105 mmol/L (98-107); Glucose 129 mg/dL (74-99); Non-African American GFR(CKD) 87 (>60 ml/min/1.73 sqM); Sodium 139 mmol/L (137-145); Total Bilirubin 1.3 mg/dL (0.2-1.3); Total Protein 7.6 g/dL (6.3-8.2)
[2022-02-11 08:58] LABS: Basophils # (A) 0.1 k/uL (0-0.2); Basophils % (A) 1 %; Eosinophils # (A) 0.3 k/uL (0-0.7); Eosinophils % (A) 4 %; HGB 15.3 gm/dL (13.0-17.5); Lymphocytes # (A) 1.1 k/uL (1.0-4.8); Lymphocytes % (A) 13 %; MCH 32.4 pg (25.0-35.0); MCHC 35.7 g/dL (31.0-37.0); Mean Platelet Volume 7.9; Monocytes # (A) 0.4 k/uL (0-1.0); Monocytes % (A) 5 %; Neutrophils # (A) 6.1 k/uL (1.3-7.7); Neutrophils % (A) 75 %; Platelet Count 139 k/uL (150-450); RBC 4.74 m/uL (4.30-5.90); RDW 12.9 % (11.5-15.5); WBC 8.1 k/uL (3.8-10.6)
--- NOTE | 2022-02-11 08:59 | XR ---
EXAMINATION TYPE: XR Hip Complete LT DATE OF EXAM: 02/11/2022 COMPARISON: NONE HISTORY: Pain TECHNIQUE: 2 views submitted FINDINGS: There is concentric narrowing of the hip joint with hypertrophic changes in the acetabulum. Hypertrop hic spurring femoral. IMPRESSION: 1. Severe arthropathy correlate for femoral acetabular
--- NOTE | 2022-02-11 09:01 | XR ---
EXAM TYPE: LUMBAR SPINE X RAY SERIES COMPARISON: NONE HISTORY: Pain TECHNIQUE: 4 views are submitted. FINDINGS: Alignment is anatomic. The pedicles are intact. The transverse processes are intact. There is batsheva re degenerative disc disease and hypertrophic spurring at all levels. Biliary stent and postsurgical change in the gallbladder fossa noted. Multilevel facet arthropathy. Suspect multilevel foraminal pro trusion. IMPRESSION: 1. Severe multilevel degenerative disc disease and facet arthropathy.
--- NOTE | 2022-02-11 09:03 | XR ---
EXAMINATION TYPE: XR foot complete LT DATE OF EXAM: 02/11/2022 COMPARISON: NONE HISTORY: Pain TECHNIQUE: Three views are submitted. FINDINGS: The osseous structures are intact. There is no acute fracture or dislocation. Joint spaces are p reserved. Calcaneal spurs are noted. Arthropathy of the first MTP with diffuse osteopenia. IMPRESSION: 1. No acute fracture or dislocation. If symptoms persist, follow-up exam in 7 to 10 days could be ob tained.
[2022-02-11 09:07] LABS: MCV 90.8 fL (80.0-100.0)
[2022-02-11 10:16] VITALS: BP 181/97; PULSE 72; RESP 18
[2022-02-11] MEDS ORDERED: methylPREDNISolone SOD SUCCI 125 MG/2 ML VIAL IV STA (10:30)
== END 2022-02-11 11:05 | disposition home or self-care (01) ==
LOC: EC 07:46
DX: M54.16 Radiculopathy, lumbar region (principal)
CPT/HCPCS: 36415; 80053; 85025; 72100; 73502; 73630; 99283; 96374; 96375; 96361 ×2; J2930; J1885

== ENCOUNTER → 2022-02-25 | Outpatient (CLI) | payer MEDICARE ==
[2022-02-25 14:33] LABS: Basophils # (A) 0.06 X 10*3/uL (0.00-0.10); Basophils % (A) 0.7 %; Eosinophils # (A) 0.34 X 10*3/uL (0.04-0.35); Eosinophils % (A) 4.2 %; HGB 15.1 g/dL (13.0-17.0); Immature Grans, Automated 0.6 %; Lymphocytes # (A) 1.28 X 10*3/uL (0.90-5.00); Lymphocytes % (A) 15.8 %; MCH 30.9 pg (27.0-32.0); MCHC 33.6 g/dL (32.0-37.0); Monocytes % (A) 7.4 %; NRBC Per 100 WBC 0 /100 WBCS (0.0-0.0); Neutrophils # (A) 5.78 X 10*3/uL (1.80-7.70); Neutrophils % (A) 71.3 %; Platelet Count 159 X 10*3/uL (140-440); RBC 4.89 X 10*6/uL (4.40-5.60); RDW 12.4 % (11.5-14.5); WBC 8.11 X 10*3/uL (4.50-10.00)
[2022-02-25 15:03] LABS: ALT 48 U/L (10-49); AST 46 U/L (14-35); African American GFR (CKD) 87.4 (60.0-200.0); Albumin 4.4 g/dL (3.8-4.9); Albumin/Globulin Ratio 1.34 (1.60-3.17); Alkaline Phosphatase 136 U/L (41-126); BUN/Creat Ratio 19.74 Ratio (12.00-20.00); Blood Urea Nitrogen 18.3 mg/dL (9.0-27.0); Calcium 9.6 mg/dL (8.7-10.3); Carbon Dioxide 26.3 mmol/L (20.0-27.5); Chloride 103 mmol/L (96-109); Chol/HDL Ratio 2.17 Ratio; Globulin 3.3 g/dL (1.6-3.3); Glucose 111 mg/dL (70-110); LDL Cholesterol,Calculated 88.4 mg/dL (0.0-131.0); Non-African American GFR(CKD) 75.4 (60.0-200.0); Potassium 4.7 mmol/L (3.5-5.5); Sodium 140 mmol/L (135-145); Total Protein 7.7 g/dL (6.2-8.2); VLDL Calculation 13.62 mg/dL (5.00-40.00)
== END | disposition home or self-care (01) ==
LOC: LABWHC1 08:01
PROVIDERS: ATTEND Family Medicine
DX: Z13.220 Encounter for screening for lipoid disorders (principal); K83.1 Obstruction of bile duct; E55.9 Vitamin D deficiency, unspecified
CPT/HCPCS: 36415; 80053; 80061; 82306; 85025

== ENCOUNTER → 2022-04-21 | Outpatient (CLI) | payer MEDICARE ==
[2022-04-21 14:44] LABS: ALT 20 U/L (10-49); AST 31 U/L (14-35)
== END | disposition home or self-care (01) ==
LOC: LABWHC1 08:00
PROVIDERS: ATTEND Family Medicine
DX: R89.9 Unspecified abnormal finding in specimens from other organs, systems and tissues (principal)
CPT/HCPCS: 36415; 84450; 84460

== ENCOUNTER → 2022-07-24 | Outpatient (CLI) | payer MEDICARE ==
[2022-07-24 11:12] LABS: African American GFR (CKD) 83.8 (60.0-200.0); Albumin 4.5 g/dL (3.8-4.9); Albumin/Globulin Ratio 1.4 (1.60-3.17); Anion Gap 11.4 mmol/L (10.00-18.00); BUN/Creat Ratio 24.06 Ratio (12.00-20.00); Blood Urea Nitrogen 23.1 mg/dL (9.0-27.0); Calcium 9.6 mg/dL (8.7-10.3); Carbon Dioxide 27.4 mmol/L (20.0-27.5); Globulin 3.2 g/dL (1.6-3.3); Non-African American GFR(CKD) 72.3 (60.0-200.0); Potassium 4.3 mmol/L (3.5-5.5); Total Bilirubin 0.5 mg/dL (0.30-1.20); Total Protein 7.7 g/dL (6.2-8.2)
== END | disposition home or self-care (01) ==
LOC: LABWHC1 08:01
PROVIDERS: ATTEND Family Medicine
DX: I10 Essential (primary) hypertension (principal)
CPT/HCPCS: 36415; 80053

== ENCOUNTER → 2022-08-11 | Outpatient (CLI) | payer MEDICARE ==
[2022-08-11 16:48] LABS: African American GFR (CKD) 90.6 (60.0-200.0); Albumin 4.4 g/dL (3.8-4.9); Albumin/Globulin Ratio 1.33 (1.60-3.17); BUN/Creat Ratio 14.89 Ratio (12.00-20.00); Blood Urea Nitrogen 13.4 mg/dL (9.0-27.0); Calcium 9.6 mg/dL (8.7-10.3); Globulin 3.3 g/dL (1.6-3.3); Non-African American GFR(CKD) 78.2 (60.0-200.0); Potassium 4.4 mmol/L (3.5-5.5); Total Bilirubin 0.7 mg/dL (0.30-1.20); Total Protein 7.7 g/dL (6.2-8.2)
== END | disposition home or self-care (01) ==
LOC: LABWHC1 08:29
PROVIDERS: ATTEND Family Medicine
DX: I10 Essential (primary) hypertension (principal)
CPT/HCPCS: 36415; 80053

== ENCOUNTER → 2022-10-07 | Outpatient (CLI) | payer MEDICARE ==
[2022-10-07 15:49] LABS: ALT 41 U/L (10-49); AST 52 U/L (14-35); Albumin 4.3 d/dL (3.8-4.9); Alkaline Phosphatase 240 U/L (41-126); BUN/Creat Ratio 19.67 Ratio (12.00-20.00); Blood Urea Nitrogen 17.7 mg/dL (9.0-27.0); Calcium 9.9 mg/dL (8.7-10.3); Carbon Dioxide 25.7 mmol/L (21.6-31.8); Chloride 103 mmol/L (96-109); Globulin 3.3 d/dL (1.6-3.3); Glucose 117 mg/dL (70-110); Potassium 4.4 mmol/L (3.5-5.5); Sodium 142 mmol/L (135-145); Total Bilirubin 0.9 mg/dL (0.3-1.2); Total Protein 7.6 d/dL (6.2-8.2)
== END | disposition home or self-care (01) ==
LOC: LABWHC1 07:55
PROVIDERS: ATTEND Family Medicine
DX: I10 Essential (primary) hypertension (principal)
CPT/HCPCS: 36415; 80053

== ENCOUNTER → 2022-10-21 | Outpatient (CLI) | payer MEDICARE ==
[2022-10-21 16:54] LABS: ALT 42 U/L (10-49); AST 55 U/L (14-35)
== END | disposition home or self-care (01) ==
LOC: LABWHC1 09:01
PROVIDERS: ATTEND Family Medicine
DX: R74.8 Abnormal levels of other serum enzymes (principal)
CPT/HCPCS: 36415; 84450; 84460

== ENCOUNTER → 2022-11-11 | Outpatient (CLI) | payer MEDICARE ==
[2022-11-11 14:32] LABS: Basophils # (A) 0.08 X 10*3/uL (0.00-0.10); Basophils % (A) 0.9 %; Eosinophils # (A) 0.16 X 10*3/uL (0.04-0.35); Eosinophils % (A) 1.7 %; HGB 13.3 d/dL (12.0-15.0); Lymphocytes # (A) 1.04 X 10*3/uL (0.90-5.00); Lymphocytes % (A) 11.2 %; MCH 29.5 pg (27.0-32.0); MCHC 31.7 d/dL (32.0-37.0); MCV 93.1 FL (80.0-97.0); Monocytes # (A) 0.88 X 10*3/uL (0.20-1.00); Monocytes % (A) 9.5 %; NRBC Per 100 WBC 0 X 10*3/uL (0.00-0.01); Neutrophils # (A) 7.05 X 10*3/uL (1.80-7.70); Neutrophils % (A) 75.7 %; Platelet Count 281 X 10*3/uL (140-440); RBC 4.51 X 10*6/uL (4.40-5.60); RDW 12.1 % (11.5-14.5)
[2022-11-11 14:46] LABS: ALT 40 U/L (10-49); AST 61 U/L (14-35); Albumin 3.8 d/dL (3.8-4.9); Albumin/Globulin Ratio 1.12 Ratio (1.60-3.17); Alkaline Phosphatase 364 U/L (41-126); BUN/Creat Ratio 11.11 Ratio (12.00-20.00); Calcium 9.3 mg/dL (8.7-10.3); Carbon Dioxide 25.2 mmol/L (21.6-31.8); Chloride 101 mmol/L (96-109); Globulin 3.4 d/dL (1.6-3.3); Glucose 137 mg/dL (70-110); Potassium 4.5 mmol/L (3.5-5.5); Sodium 138 mmol/L (135-145); Total Bilirubin 0.8 mg/dL (0.3-1.2); Total Protein 7.2 d/dL (6.2-8.2)
== END | disposition home or self-care (01) ==
LOC: LABWHC1 09:03
PROVIDERS: ATTEND Family Medicine
DX: K83.1 Obstruction of bile duct (principal)
CPT/HCPCS: 36415; 80053; 85025

== ENCOUNTER 2022-11-15 20:28 | Observation (INO) | payer MEDICARE ==
[2022-11-15] MEDS ORDERED: SODIUM CHLORIDE 0.9% 1,000 ML IV ONE (20:47)
[2022-11-15 21:28] LABS: Basophils % (A) 0 %; Eosinophils # (A) 0.2 k/uL (0-0.7); Eosinophils % (A) 2 %; HGB 12.6 gm/dL (13.0-17.5); Lymphocytes # (A) 1.2 k/uL (1.0-4.8); Lymphocytes % (A) 11 %; MCH 29.7 pg (25.0-35.0); MCHC 32.3 g/dL (31.0-37.0); Mean Platelet Volume 7.7; Monocytes # (A) 0.7 k/uL (0-1.0); Monocytes % (A) 6 %; Neutrophils # (A) 9.2 k/uL (1.3-7.7); Neutrophils % (A) 81 %; Platelet Count 197 k/uL (150-450); RBC 4.24 m/uL (4.30-5.90); RDW 12.2 % (11.5-15.5); WBC 11.4 k/uL (3.8-10.6)
[2022-11-15 21:49] LABS: ALT 41 U/L (4-49); AST 67 U/L (17-59); African American GFR (CKD) >90 (>60 ml/min/1.73 sqM); Albumin 3.5 g/dL (3.5-5.0); Alkaline Phosphatase 382 U/L (38-126); Anion Gap 10 mmol/L; Blood Urea Nitrogen 13 mg/dL (9-20); Calcium 8.5 mg/dL (8.4-10.2); Carbon Dioxide 21 mmol/L (22-30); Chloride 104 mmol/L (98-107); Glucose 146 mg/dL (74-99); Lipase 594 U/L (23-300); Magnesium 1.9 mg/dL (1.6-2.3); Non-African American GFR(CKD) 87 (>60 ml/min/1.73 sqM); Potassium 4.1 mmol/L (3.5-5.1); Sodium 135 mmol/L (137-145)
--- NOTE | 2022-11-15 22:51 | CT ---
EXAM: CT Abdomen and Pelvis With Intravenous Contrast CLINICAL HISTORY: ITS.REASON CT Reason: Acute abdominal pain TECHNIQUE: Axial computed tomography images of the abdomen and pelvis with intravenous contrast. CTDI is 20.87 mGy and DLP is 1039.5 mGy-cm. This CT exam was performed using one or more of the following dose reduction techniques: automated exposure control, adjustment of the mA and/or kV according to patient size, and/or use of iterative reconstruction technique. COMPARISON: CT chest/abdomen/pelvis on 10/01/2016 FINDINGS: Lung bases: Nonspecific 3 mm nodules in the right middle lobe. Metastases are not excluded. Lower lung atelectasis. Heart: Mild cardiomegaly. Coronary artery and aortic valve calcifications. ABDOMEN: Liver: Hypoattenuating masses throughout the liver, compatible with hepatic metastases. Gallbladder and bile ducts: Prior cholecystectomy. Pneumobilia. Distal common bile duct stent in place. Pancreas: Atrophy of the pancreas. No ductal dilation. Spleen: Unremarkable. No splenomegaly. Adrenals: Unremarkable. No mass. Kidneys and ureters: Nonspecific bilateral perinephric fat stranding. Small nonobstructing bilateral renal stones. No hydronephrosis or ureteral stone. Stomach and bowel: Evaluation of the stomach is limited by underdistention. Diverticulosis without evidence of diverticulitis. Moderate stool in the colon. No small bowel obstruction. PELVIS: Appendix: Normal appendix. Bladder: Distended bladder. No significant bladder wall thickening or stone. Reproductive: Borderline size of the prostate. ABDOMEN and PELVIS: Intraperitoneal space: Unremarkable. No free air. No significant fluid collection. Bones/joints: Degenerative changes of the hips and spine. No acute fracture. No dislocation. Soft tissues: Tiny fat-containing umbilical hernia. Vasculature: Atherosclerotic changes of the vasculature. No aortic aneurysm or dissection. Lymph nodes: Unremarkable. No enlarged lymph nodes. Other findings: Hypodense masses in the ovi hepatis region measuring approximately 5.5 x 3.9 x 7.7 cm, concerning for michael metastases versus neoplasm. IMPRESSION: 1. Nonspecific 3 mm nodules in the right middle lobe. Metastases are not excluded. 2. Hypoattenuating masses throughout the liver, compatible with hepatic metastases. 3. Small nonobstructing bilateral renal stones. No hydronephrosis or ureteral stone. 4. Hypodense masses in the ovi hepatis region measuring approximately 5.5 x 3.9 x 7.7 cm, concerning for michael metastases versus neoplasm. 5. Pneumobilia. Distal common bile duct stent in place.
[2022-11-15] MEDS ORDERED: haloperidoL 1 MG TAB PO PRN (23:35)
[2022-11-15] MEDS ORDERED: ONDANSETRON 4 MG/2 ML VIAL IVP PRN (23:35)
[2022-11-15] MEDS ORDERED: ACETAMINOPHEN TAB 325 MG TAB PO PRN (23:35)
[2022-11-15] MEDS ORDERED: HYDROcodone/APAP 5-325MG 1 EACH TAB PO PRN (23:35)
[2022-11-15] MEDS ORDERED: guaiFENesin SYRUP 100MG/5ML 200 MG/10 ML CUP PO PRN (23:35)
[2022-11-15] MEDS ORDERED: LORazepam 0.5 MG TAB PO PRN (23:35)
[2022-11-15] MEDS ORDERED: ZOLPIDEM 5 MG TAB PO PRN (23:35)
[2022-11-15] MEDS ORDERED: DIPHENOX-ATROP 2.5-0.025 MG 1 EACH TAB PO PRN (23:35)
--- NOTE | 2022-11-15 23:40 | ED ---
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 The patient stated that he had some nausea and vomiting and has been weak over the last several weeks. 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 The patient's was also present and stated that the patient is had no strain over the last several weeks and was worsened today. The patient however denied any acute pain or distress. - Related Data Home Medications Medication Instructions Recorded Confirmed Acetaminophen [Tylenol Arthritis] 650 mg PO Q8H PRN 12/29/21 11/15/22 Losartan [Cozaar] 50 mg PO DAILY 11/15/22 11/15/22 Omeprazole [PriLOSEC] 20 mg PO DAILY 11/15/22 11/15/22 Allergies Allergy/AdvReac Type Severity Reaction Status Date / Time No Known Allergies Allergy Verified 11/15/22 21:29 Review of Systems ROS Statement: Those systems with pertinent positive or pertinent negative responses have been documented in the HPI. ROS Other: All systems not noted in ROS Statement are negative. Past Medical History Past Medical History: No Reported History Additional Past Medical History / Comment(s): Cataracts, mass on bile duct History of Any Multi-Drug Resistant Organisms: None Reported Past Surgical History: Cholecystectomy Additional Past Surgical History / Comment(s): stent in bile duct Past Anesthesia/Blood Transfusion Reactions: No Reported Reaction Past Psychological History: No Psychological Hx Reported Smoking Status: Never smoker Past Alcohol Use History: None Reported Past Drug Use History: None Reported - Past Family History Father Family Medical History: Pneumonia Additional Family Medical History / Comment(s): history of cancer in the family Mother Family Medical History: Unable to Obtain General Exam Limitations: no limitations General appearance: alert, in no apparent distress, lethargic Head exam: Present: atraumatic, normocephalic, normal inspection Eye exam: Present: normal appearance, PERRL Pupils: Present: normal accommodation ENT exam: Present: normal exam, normal oropharynx, mucous membranes moist Neck exam: Present: normal inspection, full ROM Respiratory exam: Present: normal lung sounds bilaterally Cardiovascular Exam: Present: regular rate, normal rhythm, normal heart sounds GI/Abdominal exam: Present: soft, tenderness (TTP in the RUQ) Extremities exam: Present: normal inspection, full ROM Back exam: Present: normal inspection, full ROM Neurological exam: Present: alert, oriented X3, CN II-XII intact Psychiatric exam: Present: normal affect, normal mood Skin exam: Present: warm, dry Course Vital Signs 11/15/22 11/15/22 11/15/22 20:32 22:00 23:00 Temperature 98 F Pulse Rate 83 75 76 Respiratory 18 24 18 Rate Blood Pressure 179/101 161/81 162/79 O2 Sat by Pulse 97 93 L 94 L Oximetry EKG Findings - EKG Comments: EKG Findings:: An EKG was obtained and was interpreted by myself showing a rate of 81, [place] interval of 202, QRS duration 96 and QTC 425. This EKG showed a normal sinus rhythm with occasional PVC. There were however was no ST segment elevation or depression noted. Medical Decision Making - Medical Decision Making Was pt. sent in by a medical professional or institution (, PA, DENTAL OFFICE ASSISTANT, urgent care, hospital, or long-term...) When possible be specific @ -No Did you speak to anyone other than the patient for history (EMS, parent, family, police, friend...)? What history was obtained from this source @ -Yes, patient's who stated the patient was increasingly weak over the last several weeks to 1 month as well as had nausea and vomiting for the first time today. Did you review nursing and triage notes (agree or disagree)? Why? @ -I reviewed and agree with nursing and triage notes Were old charts reviewed (outside hosp., previous admission, EMS record, old EKG, old radiological studies, urgent care reports/EKG's, long-term records)? Report findings @ -No old charts were reviewed Differential Diagnosis (chest pain, altered mental status, abdominal pain women, abdominal pain men, vaginal bleeding, weakness, fever, dyspnea, syncope, headache, dizziness, GI bleed, back pain, seizure, CVA, palpatations, mental health)? @ -Bile duct mass, blocked common bile duct stent, metastatic disease, gastroenteritis EKG interpreted by me (3pts min.). @ -As above X-rays interpreted by me (1pt min.). @ -None done CT interpreted by me (1pt min.). @ -CT abdomen and pelvis with IV contrast was obtained and was interpreted by myself showing nonspecific 3 mm nodules of the right middle lobe. Metastases are not excluded. There is a hypoattenuating masses throughout the liver, compatible with hepatic metastases. There was small nonobstructing bilateral renal stones. There was hypodense masses in the ovi hepatis region measuring approximately 5.5 x 3.9 x 7.7 cm concerning for normal metastases versus neoplasm. There is also pneumobilia and a distal common bowel duct stent in place. U/S interpreted by me (1pt. min.). @ -None done What testing was considered but not performed or refused? (CT, X-rays, U/S, labs)? Why? @ -None What meds were considered but not given or refused? Why? @ -None Did you discuss the management of the patient with other professionals (professionals i.e. , PA, DENTAL OFFICE ASSISTANT, lab, RT, psych nurse, social work case manager, tiger machine operator, teacher, neighborhood conservation officer, case monitor)? Give summary @ -Yes, spoke with hospice team. Admitting physician was also contacted regarding admitting to the medical service for likely hospice care take over in the morning and discharge on hospice care. Was smoking cessation discussed for >3mins.? @ -No Was critical care preformed (if so, how long)? @ -No Were there social determinants of health that impacted care today? How? (Homelessness, low income, unemployed, alcoholism, drug addiction, transportation, low edu. Level, literacy, decrease access to med. care, [facility], rehab)? @ -No Was there de-escalation of care discussed even if they declined (Discuss DNR or withdrawal of care, Hospice)? DNR status @ -Yes, the patient did request to go onto hospice care in conjunction with a decision with his . What co-morbidities impacted this encounter? (DM, HTN, Smoking, COPD, CAD, Cancer, CVA, ARF, Chemo, Hep., AIDS, mental health diagnosis, sleep apnea, morbid obesity)? @ -Known biliary duct mass Was patient admitted / discharged? Hospital course, mention meds given and route, prescriptions, significant lab abnormalities, going to OR and other pertinent info. @ -The patient was seen and evaluated emergency department. Physical exam, the patient was resting in bed without any acute distress. The patient denied complain of any pain but did have tenderness to palpation to the right upper quadrant. Laboratory workup was obtained and was largely within normal limits however the patient's lipase was significantly elevated from prior. Due to the patient's pain in the right upper quadrant, a computed tomography scan was obtained and showed multiple findings consistent with likely metastatic disease. The patient's liver enzymes were near his baseline. The patient and his are told of this and they once again stated that they did not want any further workup at this time and would instead wanted the patient to be home and comfortable. A significant discussion was had between myself, the patient and his and they did request to be placed on hospice for the old medical of being discharged home to the patient to be on hospice at home. They did not want any further workup and evaluation by oncology. They were appreciative and grateful to be admitted to hospice. The hospice team was contacted and hospice orders were ordered at this time. The hospice nurse did recommend the patient be admitted to the hospital medically to be switched to hospice care in the morning. The patient was admitted in stable condition. Undiagnosed new problem with uncertain prognosis? @ -No Drug Therapy requiring intensive monitoring for toxicity (Heparin, Nitro, Insulin, Cardizem)? @ -No Were any procedures done? @ -No Diagnosis/symptom? @ -Metastatic disease, failure to thrive Acute, or Chronic, or Acute on Chronic? @ -Acute on chronic Uncomplicated (without systemic symptoms) or Complicated (systemic symptoms)? @ -Complicated Side effects of treatment? @ -No Exacerbation, Progression, or Severe Exacerbation? @ -No Poses a threat to life or bodily function? How? (Chest pain, [place], [place], pneumonia, PE, COPD, DKA, ARF, appy, cholecystitis, CVA, Diverticulitis, Homicidal, Suicidal, threat to staff... and all critical care pts) @ -Yes, continued metastatic disease can lead to . - Lab Data Result diagrams: 11/15/22 20:38 11/15/22 20:38 Lab Results 11/15/22 11/15/22 11/15/22 Range/Units 20:38 20:38 23:26 WBC 11.4 H (3.8-10.6) k/uL RBC 4.24 L (4.30-5.90) m/uL Hgb 12.6 L (13.0-17.5) gm/dL Hct 39.0 (39.0-53.0) % MCV 92.0 (80.0-100.0) fL MCH 29.7 (25.0-35.0) pg MCHC 32.3 (31.0-37.0) g/dL RDW 12.2 (11.5-15.5) % Plt Count 197 (150-450) k/uL MPV 7.7 Neutrophils % 81 % Lymphocytes % 11 % Monocytes % 6 % Eosinophils % 2 % Basophils % 0 % Neutrophils # 9.2 H (1.3-7.7) k/uL Lymphocytes # 1.2 (1.0-4.8) k/uL Monocytes # 0.7 (0-1.0) k/uL Eosinophils # 0.2 (0-0.7) k/uL Basophils # 0.0 (0-0.2) k/uL Sodium 135 L (137-145) mmol/L Potassium 4.1 (3.5-5.1) mmol/L Chloride 104 (98-107) mmol/L Carbon Dioxide 21 L (22-30) mmol/L Anion Gap 10 mmol/L BUN 13 (9-20) mg/dL Creatinine 0.70 (0.66-1.25) mg/dL Est GFR (CKD-EPI)AfAm >90 (>60 ml/min/1.73 sqM) Est GFR (CKD-EPI)NonAf 87 (>60 ml/min/1.73 sqM) Glucose 146 H (74-99) mg/dL Calcium 8.5 (8.4-10.2) mg/dL Magnesium 1.9 (1.6-2.3) mg/dL Total Bilirubin 1.0 (0.2-1.3) mg/dL AST 67 H (17-59) U/L ALT 41 (4-49) U/L Alkaline Phosphatase 382 H (38-126) U/L Total Protein 7.0 (6.3-8.2) g/dL Albumin 3.5 (3.5-5.0) g/dL Lipase 594 H (23-300) U/L Urine Color Light Yellow Urine Appearance Clear (Clear) Urine pH 6.5 (5.0-8.0) Ur Specific [place] 1.021 (1.001-1.035) Urine Protein Negative (Negative) Urine Glucose (UA) Negative (Negative) Urine Ketones 1+ H (Negative) Urine Blood Negative (Negative) Urine Nitrite Negative (Negative) Urine Bilirubin Negative (Negative) Urine Urobilinogen <2.0 (<2.0) mg/dL Ur Leukocyte Esterase Negative (Negative) Disposition Clinical Impression: Metastatic disease, Hospice care, Failure to thrive Disposition: ADMITTED IP TO THIS [facility] Condition: Stable Is patient prescribed a controlled substance at d/c from ED?: No Referrals: Maikol Whitfield MD [Primary Care Provider] - 1-2 days Time of Disposition: 23:00 Decision to Admit Reason: Admit from EC Decision Date: 11/15/22 Decision Time: 23:00
[2022-11-15 23:41] LABS: Appearance,Urine Clear (Clear); Bilirubin,Urine Negative (Negative); Blood,Urine Negative (Negative); Color,Urine Light Yellow; Glucose,Urine (UA) Negative (Negative); Ketones,Urine 1+ (Negative); Leukocyte Esterase,Urine Negative (Negative); Nitrite,Urine Negative (Negative); PH, Urine 6.5 (5.0-8.0); Protein,Urine Negative (Negative); Specific Gravity,Urine 1.021 (1.001-1.035); Urobilinogen,Urine <2.0 mg/dL (<2.0)
[2022-11-16 07:58] VITALS: BP 142/79; PULSE 67; RESP 16; TEMP 97.5
[2022-11-16] MEDS ORDERED: DOCUSATE 100 MG CAP PO SCH (09:00)
[2022-11-16 13:28] VITALS: BMI 24.6
--- NOTE | 2022-11-16 15:35 | P.HPIM ---
History of Present Illness H&P Date: 11/16/22 This is a 82 -year-old male who presented to the emergency department via EMS with nausea and vomiting and weakness and that had been ongoing and progressively getting worse the last several weeks. 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 Family at bedside requesting as well. Patient follows with Dr. 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 Labs revealed a mildly elev ated white count of 11.4 with hemoglobin 12.6 other labs reviewed and within normal limits, lipase 594, urinalysis was negative. Vital signs are stable. Family is meeting with [facility] today and discussing home with hospice per their request. Review Of Systems: Constitutional: No fever, no chills, no night sweats. Reports weight change. Reports weakness, fatigue or lethargy. Reports daytime sleepiness. EENT: No headache. No blurred vision or double vision, no loss of vision. No loss of Hearing, no ringing in the ears, no dizziness. No nasal drainage or congestion. No epistaxis. No sore throat. Lungs: No shortness of breath, cough, no sputum production. No wheezing. Cardiovascular: No chest pain, no lower extremity edema. No palpitations. No paroxysmal nocturnal dyspnea. No orthopnea. No lightheadedness or dizziness. No syncopal episodes. Abdominal: No abdominal pain. No nausea, vomiting. No diarrhea. No constipation. No bloody or tarry stools.. No loss of appetite. Genitourinary: No dysuria, increased frequency, urgency. No urinary retention. Musculoskeletal: No myalgias. No muscle weakness, no gait dysfunction, no frequent falls. No back pain. No neck pain. Integumentary: No wounds, no lesions. No rash or pruritus. No unusual bruising. No change in hair or nails. Neurologic: No aphasia. No facial droop. No change in mentation. No head injury. No headache. No paralysis. No paresthesia. Psychiatric: No depression. No anxiety. No mood swings. Endocrine: No abnormal blood sugars. No weight change. No excessive sweating or thirst. No cold intolerance. PHYSICAL EXAMINATION: GENERAL: The patient is alert and oriented x3, thin built, elderly appearing HEENT: Pupils are round and equally reacting to light. EOMI. no scleral icterus. No conjunctival pallor. Normocephalic, atraumatic. No pharyngeal erythema. No thyromegaly. CARDIOVASCULAR: S1 and S2 muffled PULMONARY: diminished breath sounds bilaterally with no wheezing or rhonchi noted. ABDOMEN: soft. Nontender on exam. obese. distended, normoactive bowel sounds. No palpable organomegaly. MUSCULOSKELETAL: No joint swelling or deformity. EXTREMITIES: No cyanosis, clubbing, or pedal edema. NEUROLOGICAL: Gross neurological examination did not reveal any focal deficits. Diffuse weakness SKIN: No rashes. 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 Dysphagia Muscle wasting Moderate protein calorie malnutrition with BMI 24.7 GI prophylaxis DVT prophylaxis No code Plan: Recommend to continue with current medications and management and patient and family meeting with [facility] and are agreeable to going home with hospice comfort measures Patient did have CT abdomen which showed nonspecific 3 mm nodules in the right middle lobe metastasis not excluded, hypoattenuating masses throughout the liver compatible with hepatic metastasis, small nonobstructing bilateral renal stones with no hydronephrosis noted and a hypodense mass in the ovi hepatitis region measuring approximately 5.5 x 3.9 x 7.7 cm concerning for michael metastasis versus neoplasm with pneumobilia Family has discussed and would like the patient to be on hospice and go home to be comfortable and this is being arranged today Patient will be discharged home with [facility] and PCP Dr. Whitfield will be notified. The impression and plan of care has been dictated by Lilliana Mcmahon, nurse practitioner as directed. Dr. Grazyna MD I have performed a history and examination and MDM of this patient, discussed the same with the dictator, and agree with the dictator's assessment and plan as written ,documented as a scribe. Based on total visit time, I have performed more than 50% of the visit. Any additional findings or plans will be noted. Past Medical History Past Medical History: No Reported History Additional Past Medical History / Comment(s): Cataracts, mass on bile duct, ba rrot's esophagus, masses on liver and left middle lungs 11/15/22 History of Any Multi-Drug Resistant Organisms: None Reported Past Surgical History: Cholecystectomy Additional Past Surgical History / Comment(s): stent in bile duct 03/27/2022 Past Anesthesia/Blood Transfusion Reactions: No Reported Reaction Past Psychological History: No Psychological Hx Reported Smoking Status: Never smoker Past Alcohol Use History: None Reported Past Drug Use History: None Reported - Past Family History Father Family Medical History: Pneumonia Additional Family Medical History / Comment(s): history of cancer in the family Mother Family Medical History: Unable to Obtain Medications and Allergies Home Medications Medication Instructions Recorded Confirmed Type Acetaminophen [Tylenol Arthritis] 650 mg PO Q8H PRN 12/29/21 11/15/22 History Losartan [Cozaar] 50 mg PO DAILY 11/15/22 11/15/22 History Omeprazole [PriLOSEC] 20 mg PO DAILY 11/15/22 11/15/22 History Allergies Allergy/AdvReac Type Severity Reaction Status Date / Time No Known Allergies Allergy Verified 11/15/22 21:29 Physical Exam Vitals: Vital Signs Temp Pulse Pulse Resp BP BP Pulse Ox 11/16/22 07:37 97.5 F L 67 16 142/79 94 L 11/16/22 01:30 97.9 F 76 18 170/82 96 11/16/22 00:59 97.6 F 72 18 150/81 95 11/16/22 00:00 75 23 165/97 11/15/22 23:00 76 18 162/79 94 L 11/15/22 22:00 75 24 161/81 93 L 11/15/22 20:32 98 F 83 18 179/101 97 Intake and Output 11/15/22 11/16/22 11/16/22 22:59 06:59 14:59 Other: Weight 75.75 kg 75.75 kg Results CBC & Chem 7: 11/15/22 20:38 11/15/22 20:38 Labs: Abnormal Lab Results - Last 24 Hours (Table) 11/15/22 11/15/22 11/15/22 Range/Units 20:38 20:38 23:26 WBC 11.4 H (3.8-10.6) k/uL RBC 4.24 L (4.30-5.90) m/uL Hgb 12.6 L (13.0-17.5) gm/dL Neutrophils # 9.2 H (1.3-7.7) k/uL Sodium 135 L (137-145) mmol/L Carbon Dioxide 21 L (22-30) mmol/L Glucose 146 H (74-99) mg/dL AST 67 H (17-59) U/L Alkaline Phosphatase 382 H (38-126) U/L Lipase 594 H (23-300) U/L Urine Ketones 1+ H (Negative) Thrombosis Risk Factor Assmnt - DVT/VTE Prophylaxis DVT/VTE Prophylaxis: Pharmacologic Prophylaxis ordered - Choose All That Apply Any of the Below Risk Factors Present?: No Each Risk Factor Represents 2 Points: Malignancy Each Risk Factor Represents 3 Points: Age 75 years or older Thrombosis Risk Factor Assessment Total Risk Factor Score: 5 Thrombosis Risk Factor Assessment Level: High Risk Assessment and Plan Time with Patient: Greater than 30
--- NOTE | 2022-11-18 14:32 | P.DS ---
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 Patient family requested cancellation of Dr. Whitfield follow-up visit in the outpatient setting as he is going home with comfort measures with [facility]. Total time taken is greater than 35 minutes. Hospital course This is a 82-year-old male who was recently admitted with nausea and vomiting abdominal discomfort and inability to tolerate much oral intake with significant muscle wasting and dysphasia and requesting hospice consult. [facility] met with patient and family at bedside as there is noted multiple nodules and lesions in the lungs liver with high suspicion for metastasis. Given patient's age and comorbidities patient and family monitor go home and be comfortable with hospice services. Patient is being discharged today in [facility] hospice will follow with the patient in the outpatient setting. Currently no reports of chest pain, shortness of breath, or palpitations. Patient is afebrile. No reports of nausea or vomiting and patient is tolerating diet. Patient will be discharged home today. Overall poor prognosis Physical exam: Gen: This is a 82-year-old male is awake, alert and oriented 2-3, thin built, elderly appearing, ill appearing HEENT: Head is atraumatic, normocephalic. Pupils equal, round. Sclerae is anicteric. NECK: Supple. No JVD. No lymphadenopathy. No thyromegaly. LUNGS: Clear to auscultation. No wheezes or rhonchi. No intercostal retractions. HEART: Regular rate and rhythm. No murmur. ABDOMEN: Soft. Mildly distended. Bowel sounds are present. No masses. No tenderness. EXTREMITIES: No pedal edema. No calf tenderness. NEUROLOGICAL: Patient is awake, alert and oriented x2-3. Cranial nerves 2 through 12 are grossly intact. Please refer to medication reconciliation sheet for a list of medications. The impression and plan of care has been dictated by Lilliana Mcmahon, Nurse Practitioner as directed. Dr. Grazyna MD I have performed a history and examination and MDM of this patient, discussed the same with the dictator, and agree with the dictator's assessment and plan as written ,documented as a scribe. Based on total visit time, I have performed more than 50% of the visit. Patient Condition at Discharge: Stable Plan - Discharge Summary Discharge Rx Participant: No New Discharge Prescriptions: Continue Omeprazole [PriLOSEC] 20 mg PO DAILY Losartan [Cozaar] 50 mg PO DAILY Acetaminophen [Tylenol Arthritis] 650 mg PO Q8H PRN PRN Reason: Pain Or Fever > 100.5 Discharge Medication List Acetaminophen [Tylenol Arthritis] 650 mg PO Q8H PRN 12/29/21 [History] Losartan [Cozaar] 50 mg PO DAILY 11/15/22 [History] Omeprazole [PriLOSEC] 20 mg PO DAILY 11/15/22 [History] Follow up Appointment(s)/Referral(s): Maikol Whitfield MD [Primary Care Provider] - 1-2 days Patient Instructions/Handouts: Hospice (DC) Activity/Diet/Wound Care/Special Instructions: Patient is going home with hospice Activity as tolerated Follow-up appointment in November with Dr. Whitfield has been cancelled Discharge Disposition: HOME WITH HOSPICE
== END 2022-11-16 13:54 | disposition hospice, home (50) ==
LOC: EC 20:28 → 5NMEDONC 23:35 → UNDOADMOB 11-16 00:22 → 5NMEDONC 11-16 00:22 → INTOOBSV 11-16 00:22 → 5NMEDONC 11-16 00:33 → UNDODISOB 11-16 13:54 → UNDODISIN 11-16 13:54
PROVIDERS: ADMIT Internal Medicine; ATTEND Internal Medicine
DX: R11.2 Nausea with vomiting, unspecified (principal); E44.0 Moderate protein-calorie malnutrition; R91.8 Other nonspecific abnormal finding of lung field; R13.10 Dysphagia, unspecified; M62.50 Muscle wasting and atrophy, not elsewhere classified, unspecified site; R62.7 Adult failure to thrive; Z68.24 Body mass index [BMI] 24.0-24.9, adult; Z79.899 Other long term (current) drug therapy
CPT/HCPCS: 96360; 99285; 36415; 93005; 80053; 83690; 83735; 85025; 81003; 74177; G0378 ×2; Q9967